=== PATIENT | male | born 1975 | race Caucasian/White ===

== ENCOUNTER 2018-01-24 17:00 | Emergency (ER) | payer MEDICARE, MEDICAID, SELFPAY ==
[2018-01-24 17:05] VITALS: BP 142/83; PULSE 96; RESP 16; TEMP 36.7; O2SAT 97
--- NOTE | 2018-01-24 18:02 | DI.RAD_ITS ---
SYMPTOM/DIAGNOSIS: ROTATIONAL INJURY, PAIN LEFT ANKLE: Three views. No priors. On the frontal view of the left ankle, there is a tiny calcific linear density lateral to the lateral malleolus. This may represent a tiny avulsed fracture. No other fracture or dislocation is seen. There is soft tissue swelling about the ankle laterally. IMPRESSION: 3 mm. linear density adjacent to the tip of the lateral malleolus which may represent a tiny avulsed fracture fragment. Soft tissue swelling about the ankle laterally. LEFT FOOT: Three views. No acute fracture or dislocation is identified. There does appear to be some soft tissue swelling about the foot and ankle, particularly laterally. IMPRESSION: No acute fracture or dislocation of the left foot.
--- NOTE | 2018-01-24 18:04 | W.ED.GENAD ---
Discharge Plan Disposition Patient Disposition: HOME Condition: Good Discharge Details Chief Complaint: Orthopedic Clinical Impression: Inversion sprain of left ankle Primary Care Provider: Derik Barksdale ED Provider: Leora Angel [place] Meds and New Rx's Prescriptions: Continue atorvastatin [Lipitor] 40 MG tablet 40 mg PO HS RF: 0 bupropion HCl 150 MG tablet extended release 12 hr 150 mg PO HS RF: 0 quetiapine [Seroquel] 200 MG tablet 400 mg PO HS RF: 0 metformin 1,000 MG tablet 1,000 mg PO BID RF: 0 lisinopril 10 MG tablet 10 mg PO HS RF: 0 testosterone cypionate 2,000 MG/10 ML oil 200 mg IM .[id number] RF: 0 lamotrigine [Lamictal] 100 MG tablet 100 g PO BID RF: 0 levothyroxine [Synthroid] 112 MCG tablet 125 mcg PO DAILY RF: 0 alprazolam 2 MG tablet extended release 24 hr 0.5 mg PO BID RF: 0 insulin glargine [Lantus Solostar U-100 Insulin] 100 UNIT/ML insulin pen 50 unit SQ HS RF: 0 exenatide microspheres [Bydureon] 2 MG suspension,extended rel recon 2 mg SQ .WEEKLY RF: 0 meclizine [Antivert] 25 MG tablet 25 mg PO Q8H PRN PRN (Reason: Dizziness) Qty: 14 RF: 0 aspirin [Aspir-81] 81 MG tablet,delayed release (DR/EC) 81 mg PO DAILY RF: 0 magnesium oxide 400 MG tablet 400 mg PO DAILY RF: 0 cholecalciferol (vitamin D3) 1,000 UNITS tablet 1,000 units PO DAILY RF: 0 Ibuprofen 800 MG Tablet 800 mg PO DAILY RF: 0 trazodone 50 mg Tablet 50 mg PO HS RF: 0 buspirone 15 mg Tablet 15 mg PO BID RF: 0 Discharge Instructions Instructions: Ankle Sprain (ED) Additional Instructions: Encourage rest, ice, elevation. Tylenol and/or ibuprofen as needed for discomfort. Continue ankle brace while pain continues. Please follow-up with primary care if pain persists over the next 2 weeks. If you develops new or worsening symptoms please seek care urgently with him. Please avoid activities that cause increased Referrals: Derik Barksdale [Primary Care Provider] - Discharge Data Discharge Date/Time-TO BE ENTERED AT DEPARTURE: 01/24/18 19:15 Medical Decision Making MDM Narrative Medical decision making narrative: Patient presents, brought in via EMS with chief complaint of left ankle pain after stepping in a hole in the ground and suffering a rotational injury, believes this was an internal injury but is unclear. Pain fairly globally about the foot and ankle. Worse over the lateral malleolus. Soft tissue swelling noted. States that initially he was able to ambulate but that since the swelling has increased he has had difficulty with ambulation. Contacted EMS to be brought in for evaluation. On exam, patient is noted to have lateral soft tissue swelling. No palpable deformity. Range of motion is limited, particularly plantar flexion secondary to pain. He has brisk capillary refill. Sensation is intact. Pain is fairly diffuse. Will obtain imaging to evaluate for any possible bony abnormality. No pain with palpation over the proximal fibular head or neck. We will give the patient Tylenol and ibuprofen help discomfort X-rays read by radiologist. Advise and soft tissues are unremarkable in the ankle, no acute fracture or dislocation noted. Advise no acute findings. I also reviewed the imaging of the foot. Advise moderate soft tissue swelling involving the foot and ankle but no radiopaque foreign body. No acute fracture dislocation Discussed findings with the patient. Patient was diagnosed with ankle spray he will be fitted with a lace up ankle brace. Encouraged rest, ice, elevation. Tylenol and/or ibuprofen as needed for discomfort. We discussed new/worsening symptoms once he care urgently once again. Advised follow-up with primary care in the next 2 weeks for reevaluation. All of his questions and concerns were addressed and he is in agreement with this plan [facility] - General Adult General Mode of arrival: EMS. Date/Time Provider Initiated Documentation: 01/24/18 17:57. Limitations to Documentation: no limitations. Information obtained by: patient and family (accompanied by parents). History of Present Illness 42 year old M presents to the emergency department with the chief complaint of Left foot and ankle pain, described as moderate, with intensity rated at 8. Quality is described as aching, and is localized to the lower extremity. Patient proximal. Patient started experiencing this hour(s) and it has been constant. No relieving factors improve symptom(s), Movement worsens symptoms . Patient notes no other symptoms.. Patient did receive the following treatments prior to arrival, none Related Data Home Medications Medication Instructions Recorded Confirmed alprazolam 0.5 mg PO BID 02/23/17 01/24/18 atorvastatin [Lipitor] 40 mg PO HS 02/23/17 01/24/18 bupropion HCl 150 mg PO HS 02/23/17 01/24/18 exenatide microspheres [Bydureon] 2 mg SQ .WEEKLY 02/23/17 01/24/18 insulin glargine [Lantus Solostar 50 unit SQ HS 02/23/17 01/24/18 U-100 Insulin] lamotrigine [Lamictal] 100 g PO BID 02/23/17 01/24/18 levothyroxine [Synthroid] 125 mcg PO DAILY 02/23/17 01/24/18 lisinopril 10 mg PO HS 02/23/17 01/24/18 metformin 1,000 mg PO BID 02/23/17 01/24/18 quetiapine [Seroquel] 400 mg PO HS 02/23/17 01/24/18 testosterone cypionate 200 mg IM .[id number] 02/23/17 01/24/18 Ibuprofen 800 mg PO DAILY 06/16/17 01/24/18 aspirin [Aspir-81] 81 mg PO DAILY 06/16/17 01/24/18 cholecalciferol (vitamin D3) 1,000 units PO DAILY 06/16/17 01/24/18 magnesium oxide 400 mg PO DAILY 06/16/17 01/24/18 buspirone 15 mg PO BID 01/24/18 01/24/18 trazodone 50 mg PO HS 01/24/18 01/24/18 Previous Rx's Medication Instructions Recorded meclizine [Antivert] 25 mg PO Q8H PRN PRN #14 tab 02/23/17 Allergies Allergy/AdvReac Type Severity Reaction Status Date / Time No Known Allergies Allergy Unverified 01/24/18 17:23 General Stated Complaint: Orthopedic KEITH: 4 Review of Systems Constitutional Denies chills and Denies fever(s) Respiratory Comments: None reported Musculoskeletal Reports as per HPI, Reports abnormal gait (reports he was able to ambulate initially but is unable to bear weight at this time), Reports joint swelling, Reports limited range of motion, Denies numbness and Reports radiating pain into limb (states no pain proximally initially, however, now states that pain is radiating into mid calf laterally) Integumentary/Breasts Reports skin swelling (left ankle, no discoloration) Neurologic Reports abnormal gait (reports he was able to ambulate initially but is unable to bear weight at this time) and Denies numbness [facility] Social History Smoking/Tobacco Use Status: Never Exam Const General: cooperative, healthy appearing, comfortable, no acute distress, well developed and well groomed Nutritional Appearance: overweight Orientation: alert and awake Resp Effort & Inspection: no respiratory distress Skin General skin exam: no rashes or lesions noted Lesions: no lesions Rashes: no rashes Wounds: no wounds Neuro General: alert and awake Cognition: normal cognition Sensory Exam: no sensory deficits noted Extrem General: abnormal to inspection (Exam of LLE significant for swelling and pain over the lateral malleolus. No palpable deformity. Pain over Achilles, no palpabe deformity, negative Paredes test. Pain in foot globally. Sensatio intact, brisk capillary refill), abnormal ROM (limited ROM of ankle), normal capillary refill, no joint enlargement noted, no clubbing, cyanosis or edema, no pedal edema, no calf tenderness and abnormal gait Left lower extremity: abnormal to inspection (as above) Psych Appearance: grossly normal and well kempt Mental Status: mental status grossly normal Speech and Movement: speech and movement normal Mood: congruent mood Affect: normal affect Attitude: cooperative Course Vital Signs Temperature 36.7 C 01/24/18 17:05 Pulse 96 H 01/24/18 17:05 Respiratory Rate 16 01/24/18 17:05 Blood Pressure 142/83 H 01/24/18 17:05 Pulse Oximetry 97 01/24/18 17:05 Temperature 36.7 C 01/24/18 17:05 Pulse 96 H 01/24/18 17:05 Respiratory Rate 16 01/24/18 17:05 Blood Pressure 142/83 H 01/24/18 17:05 Pulse Oximetry 97 01/24/18 17:05
--- NOTE | 2018-01-24 18:07 | ED.GENADUL_ITS ---
Discharge Plan Disposition Patient Disposition: HOME Condition: Good Discharge Details Chief Complaint: Orthopedic Clinical Impression: Inversion sprain of left ankle Primary Care Provider: Derik Barksdale ED Provider: Leora Angel [place] Meds and New Rx's Prescriptions: Continue atorvastatin [Lipitor] 40 MG tablet 40 mg PO HS RF: 0 bupropion HCl 150 MG tablet extended release 12 hr 150 mg PO HS RF: 0 quetiapine [Seroquel] 200 MG tablet 400 mg PO HS RF: 0 metformin 1,000 MG tablet 1,000 mg PO BID RF: 0 lisinopril 10 MG tablet 10 mg PO HS RF: 0 testosterone cypionate 2,000 MG/10 ML oil 200 mg IM .[id number] RF: 0 lamotrigine [Lamictal] 100 MG tablet 100 g PO BID RF: 0 levothyroxine [Synthroid] 112 MCG tablet 125 mcg PO DAILY RF: 0 alprazolam 2 MG tablet extended release 24 hr 0.5 mg PO BID RF: 0 insulin glargine [Lantus Solostar U-100 Insulin] 100 UNIT/ML insulin pen 50 unit SQ HS RF: 0 exenatide microspheres [Bydureon] 2 MG suspension,extended rel recon 2 mg SQ .WEEKLY RF: 0 meclizine [Antivert] 25 MG tablet 25 mg PO Q8H PRN PRN (Reason: Dizziness) Qty: 14 RF: 0 aspirin [Aspir-81] 81 MG tablet,delayed release (DR/EC) 81 mg PO DAILY RF: 0 magnesium oxide 400 MG tablet 400 mg PO DAILY RF: 0 cholecalciferol (vitamin D3) 1,000 UNITS tablet 1,000 units PO DAILY RF: 0 Ibuprofen 800 MG Tablet 800 mg PO DAILY RF: 0 trazodone 50 mg Tablet 50 mg PO HS RF: 0 buspirone 15 mg Tablet 15 mg PO BID RF: 0 Discharge Instructions Instructions: Ankle Sprain (ED) Additional Instructions: Encourage rest, ice, elevation. Tylenol and/or ibuprofen as needed for discomfort. Continue ankle brace while pain continues. Please follow-up with primary care if pain persists over the next 2 weeks. If you develops new or worsening symptoms please seek care urgently with him. Please avoid activities that cause increased Referrals: Derik Barksdale [Primary Care Provider] - Discharge Data Discharge Date/Time-TO BE ENTERED AT DEPARTURE: 01/24/18 19:15 Medical Decision Making MDM Narrative Medical decision making narrative: Patient presents, brought in via EMS with chief complaint of left ankle pain after stepping in a hole in the ground and suffering a rotational injury, believes this was an internal injury but is unclear. Pain fairly globally about the foot and ankle. Worse over the lateral malleolus. Soft tissue swelling noted. States that initially he was able to ambulate but that since the swelling has increased he has had difficulty with ambulation. Contacted EMS to be brought in for evaluation. On exam, patient is noted to have lateral soft tissue swelling. No palpable deformity. Range of motion is limited, particularly plantar flexion secondary to pain. He has brisk capillary refill. Sensation is intact. Pain is fairly diffuse. Will obtain imaging to evaluate for any possible bony abnormality. No pain with palpation over the proximal fibular head or neck. We will give the patient Tylenol and ibuprofen help discomfort X-rays read by radiologist. Advise and soft tissues are unremarkable in the ankle, no acute fracture or dislocation noted. Advise no acute findings. I also reviewed the imaging of the foot. Advise moderate soft tissue swelling involving the foot and ankle but no radiopaque foreign body. No acute fracture dislocation Discussed findings with the patient. Patient was diagnosed with ankle spray he will be fitted with a lace up ankle brace. Encouraged rest, ice, elevation. Tylenol and/or ibuprofen as needed for discomfort. We discussed new/worsening symptoms once he care urgently once again. Advised follow-up with primary care in the next 2 weeks for reevaluation. All of his questions and concerns were addressed and he is in agreement with this plan [facility] - General Adult General Mode of arrival: EMS . Date/Time Provider Initiated Documentation: 01/24/18 17:57 . Limitations to Documentation: no limitations . Information obtained by: patient and family (accompanied by parents) . History of Present Illness 42 year old M presents to the emergency department with the chief complaint of Left foot and ankle pain, described as moderate, with intensity rated at 8. Quality is described as aching, and is localized to the lower extremity. Patient proximal. Patient started experiencing this hour(s) and it has been constant. No relieving factors improve symptom(s), Movement worsens symptoms . Patient notes no other symptoms.. Patient did receive the following treatments prior to arrival, none Related Data Home Medications Medication Instructions Recorded Confirmed alprazolam 0.5 mg PO BID 02/23/17 01/24/18 atorvastatin [Lipitor] 40 mg PO HS 02/23/17 01/24/18 bupropion HCl 150 mg PO HS 02/23/17 01/24/18 exenatide microspheres [Bydureon] 2 mg SQ .WEEKLY 02/23/17 01/24/18 insulin glargine [Lantus Solostar 50 unit SQ HS 02/23/17 01/24/18 U-100 Insulin] lamotrigine [Lamictal] 100 g PO BID 02/23/17 01/24/18 levothyroxine [Synthroid] 125 mcg PO DAILY 02/23/17 01/24/18 lisinopril 10 mg PO HS 02/23/17 01/24/18 metformin 1,000 mg PO BID 02/23/17 01/24/18 quetiapine [Seroquel] 400 mg PO HS 02/23/17 01/24/18 testosterone cypionate 200 mg IM .[id number] 02/23/17 01/24/18 Ibuprofen 800 mg PO DAILY 06/16/17 01/24/18 aspirin [Aspir-81] 81 mg PO DAILY 06/16/17 01/24/18 cholecalciferol (vitamin D3) 1,000 units PO DAILY 06/16/17 01/24/18 magnesium oxide 400 mg PO DAILY 06/16/17 01/24/18 buspirone 15 mg PO BID 01/24/18 01/24/18 trazodone 50 mg PO HS 01/24/18 01/24/18 Previous Rx's Medication Instructions Recorded meclizine [Antivert] 25 mg PO Q8H PRN PRN #14 tab 02/23/17 Allergies Allergy/AdvReac Type Severity Reaction Status Date / Time No Known Allergies Allergy Unverified 01/24/18 17:23 General Stated Complaint: Orthopedic KEITH: 4 Review of Systems Constitutional Denies chills and Denies fever(s) Respiratory Comments: None reported Musculoskeletal Reports as per HPI, Reports abnormal gait (reports he was able to ambulate initially but is unable to bear weight at this time), Reports joint swelling, Reports limited range of motion, Denies numbness and Reports radiating pain into limb (states no pain proximally initially, however, now states that pain is radiating into mid calf laterally) Integumentary/Breasts Reports skin swelling (left ankle, no discoloration) Neurologic Reports abnormal gait (reports he was able to ambulate initially but is unable to bear weight at this time) and Denies numbness [facility] Social History Smoking/Tobacco Use Status: Never Exam Const General: cooperative, healthy appearing, comfortable, no acute distress, well developed and well groomed Nutritional Appearance: overweight Orientation: alert and awake Resp Effort & Inspection: no respiratory distress Skin General skin exam: no rashes or lesions noted Lesions: no lesions Rashes: no rashes Wounds: no wounds Neuro General: alert and awake Cognition: normal cognition Sensory Exam: no sensory deficits noted Extrem General: abnormal to inspection (Exam of LLE significant for swelling and pain over the lateral malleolus. No palpable deformity. Pain over Achilles, no palpabe deformity, negative Paredes test. Pain in foot globally. Sensatio intact, brisk capillary refill), abnormal ROM (limited ROM of ankle), normal capillary refill, no joint enlargement noted, no clubbing, cyanosis or edema, no pedal edema, no calf tenderness and abnormal gait Left lower extremity: abnormal to inspection (as above) Psych Appearance: grossly normal and well kempt Mental Status: mental status grossly normal Speech and Movement: speech and movement normal Mood: congruent mood Affect: normal affect Attitude: cooperative Course Vital Signs Temperature 36.7 C 01/24/18 17:05 Pulse 96 H 01/24/18 17:05 Respiratory Rate 16 01/24/18 17:05 Blood Pressure 142/83 H 01/24/18 17:05 Pulse Oximetry 97 01/24/18 17:05 Temperature 36.7 C 01/24/18 17:05 Pulse 96 H 01/24/18 17:05 Respiratory Rate 16 01/24/18 17:05 Blood Pressure 142/83 H 01/24/18 17:05 Pulse Oximetry 97 01/24/18 17:05
[2018-01-24] MEDS: Acetaminophen 500 MG TAB 1000 MG PO (18:30)
[2018-01-24] MEDS: Ibuprofen 600 MG TAB PO (18:30)
--- NOTE | 2018-01-24 18:41 | DI.VRAD_ITS ---
EXAM: XR Left Ankle Complete, 3 or More Views CLINICAL HISTORY: 42 years old, male; Pain; Ankle and foot; Left TECHNIQUE: Frontal, lateral and oblique views of the left ankle. COMPARISON: No relevant prior studies available. FINDINGS: Bones/joints: Unremarkable. No acute fracture. No dislocation. Soft tissues: Unremarkable. IMPRESSION: No acute findings. Dictated and Authenticated by: Vikram Galvin MD. Ordering:MARGARETTE BALTAZAR MD
--- NOTE | 2018-01-24 18:51 | DI.VRAD_ITS ---
EXAM: XR Left Foot Complete, 3 or More Views CLINICAL HISTORY: 42 years old, male; Pain and injury or trauma; Fall; Initial encounter; Swelling (edema); Foot; Left; Ankle; Additional info: Rotational injury TECHNIQUE: Frontal, lateral and oblique views of the left foot. COMPARISON: No relevant prior studies available. FINDINGS: Bones/joints: Unremarkable. No acute fracture. No dislocation. Soft tissues: Moderate soft tissue swelling involving the foot and ankle. No radiopaque foreign body. IMPRESSION: No acute fracture or dislocation. Dictated and Authenticated by: Vikram Galvin MD. Ordering:MARGARETTE BALTAZAR MD
[2018-01-24 19:21] VITALS: BP 148/80; PULSE 64; RESP 18; TEMP 36.7; O2SAT 96
== END 2018-01-24 19:15 | disposition home or self-care (01) ==
PROVIDERS: Emergency Provider Physician Assistant; PCP Family Medicine
DX: S93.402A Sprain of unspecified ligament of left ankle, initial encounter (principal); X50.1XXA Overexertion from prolonged static or awkward postures, initial encounter
CPT/HCPCS: 29515; 99284; 73610; 73630; 99282; L1902

== ENCOUNTER 2018-03-08 09:09 | Outpatient (REF) | payer MEDICARE, MEDICAID, SELFPAY ==
[2018-03-08 12:49] LABS: HCT 39.5 % (40.0-50.0); HGB 13.2 g/dL (13.5-17.5); Mean Corp. HGB Concentration 33.4 g/dL (32.0-36.0); Mean Corpuscular Hemoglobin 25.5 pg (27.0-33.0); Mean Corpuscular Volume 76.4 fL (80-95); Mean Platelet Volume 9.9 fL (8.0-11.0); Platelet Count 267 x1000/uL (130-400); RBC 5.17 m/cumm (4.50-6.00); RBC Distribution Width 15.4 % (11.8-14.1); White Blood Cell Count 7.34 k/cumm (4.4-10.8)
[2018-03-08 13:34] LABS: Microalb ug/mg Crea 7.9 ug/mg Cr
[2018-03-08 14:41] LABS: Anion Gap 12.2 mmol/L (3-11); BUN 14 mg/dL (7-18); CO2 24.8 mmol/L (21.0-32.0); CREATININE 1.36 mg/dL (0.70-1.30); Calcium 9.1 mg/dL (8.5-10.1); Chloride 100 mmol/L (98-107); Estimated GFR 57.47 (mL/min/1.73m2); Glucose 119 mg/dL (70-100); Magnesium 1.7 mg/dL (1.8-2.4); Potassium 4.5 mmol/L (3.5-5.1); Sodium 137 mmol/L (136-145); TSH (W/Ref FT4) 1.69 uIU/mL (0.358-3.74)
[2018-03-11 11:40] LABS: Testosterone, Free 7.07 ng/dL (4.46-17.1); Testosterone, Total 202 ng/dL (240-950)
== END 2018-03-08 09:29 ==
LOC: NCHCN 09:09
PROVIDERS: PCP Family Medicine; Visit Provider Family Medicine
DX: E83.42 Hypomagnesemia (principal); E03.9 Hypothyroidism, unspecified; N28.9 Disorder of kidney and ureter, unspecified; R42 Dizziness and giddiness; E29.1 Testicular hypofunction; E11.21 Type 2 diabetes mellitus with diabetic nephropathy
CPT/HCPCS: 80048; 84402; 84403; 85027; 82043; 82570; 83735; 84443

== ENCOUNTER 2018-03-15 00:42 | Outpatient (CLI) | payer MEDICARE, MEDICAID, SELFPAY ==
--- NOTE | 2018-03-15 08:30 | ETT_ITS ---
*[facility]* *[facility]* [address] [place] [address] Stress Electrocardiography Gopi protocol Date of study: 03/15/2018 *PATIENT PRESENTATION* Height: 177.8cm (70in) Blood Pressure: Weight: 119.1kg (262lb) BSA: 2.47m^2 Ordering physician: Derik Barksdale Impressions: - Chest pain with exercise. - No ECG changes during exercise. Summary: 1. Stress ECG conclusions: The stress ECG is negative. Lee treadmill score: 4. This score predicts a moderate risk of cardiac events. 2. Stress: The target heart rate was achieved. The heart rate response to stress is normal. There is a normal resting blood pressure with an appropriate response to stress. Stress-induced chest pain which resolved spontaneously. Exercise capacity is good (10 METS). Recommendations: Exercise stress myocardial perfusion imaging should be performed for further risk stratification. Indication: R07.89, Appropriate Use Criteria: A (Appropriate). History: REASON FOR TESTING: CHEST PAIN, SHORTNESS OF BREATH AND POUNDING IN CHEST WITH GOING UP 1 FLIGHT OF STAIRS. PAST MEDICAL HISTORY: BIPOLAR, DIABETES, HYPOPITUITARYISM. FAMILY HISTORY: FATHER HEART ATTACK AT AGE 60. SMOKING: NEVER EXERCISE: NONE Risk factors: Family history of coronary artery disease. Hypertension. Diabetes mellitus. Dyslipidemia. Cholesterol: 182mg/dl. HDL: 31mg/dl. LDL: 86mg/dl. Triglycerides: 562mg/dl. ALLERGIES: NO KNOWN ALLERGIES MEDICATIONS: ATORVASTATIN 40 MG HS, BUPROPION HCI 150 MG HS, QUETIAPINE 200 MG HS, METFORMIN 1000 MG BID, LISINOPRIL 10 MG HS, TESTOSTERONE CYPIOINATE 2000 MG IM Q2 WEEKS, LAMOTRIGINE 100 MG BID, LEVOTHYROXINE 112 MCG DAILY, ALPRAZOLAM 2 MG, GLARGINE INSULIN 50 UNITS HS, EXENATIDE MICROSPHERES 2 MG SQ WEEKLY, MECLIZINE 25 MG PRN, ASPIRIN 81 MG DAILY, CHOLECALCIFEROL 1000 DAILY, IBUPROFEN 800 DAILY, TRAZODONE 50 HS, BUSPIRONE 15 BID. Protocol: Gopi protocol. Baseline ECG: LAST EKG: NONE AVAILABLE TODAY'S EKG: SINUS RHYTHM Normal ECG. Stress protocol: + +---+ +---+ !Stage !HR !BP (mmHg) !Sat! + +---+ +---+ !Baseline supine !83 !118/74 (89) !---! + +---+ +---+ !Baseline standing !92 !114/80 (91) !97%! + +---+ +---+ !Stage I; 1.7mph, 10degrees; 3 min !121!106/68 (81) !---! + +---+ +---+ !Stage II; 2.5mph, 12degrees; 3 min!145!126/70 (89) !98%! + +---+ +---+ !Recovery; 1 min !152!148/72 (97) !---! + +---+ +---+ !Recovery; 3 min !110!162/84 (110)!---! + +---+ +---+ !Recovery; 6 min !99 !148/80 (103)!---! + +---+ +---+ !Recovery; 9 min !98 !130/82 (98) !---! + +---+ +---+ * Stress results: EXERCISE TESTING ENDED IN 7 MINUTES 45 SECONDS DUE TO DYSPNEA AND INCREASING DIZZINESS, MAX HEART RATE [id number], 88% OF TARGET. BLOOD PRESSURE: TREADMILL MALFUNCTIONED DURING FIRST STAGE HENCE THE LOWER BLOOD PRESSURE DURING THE FIRST STAGE. OTHERWISE BLOOD PRESSURE RESPONSE NORMAL RESPONSE. ECTOPY: NONE MET'S: 9.75 ANGINA: DURING THIRD STAGE PATIENT REPORTED CHEST ACHING RATED 4/10--DENIED ANY RADIATION WITH CHEST PAIN. LIGHTHEADEDNESS REPORTED DURING THE SECOND STAGE AND ENDED DURING RECOVERY AT 6 MINUTES. HEART POUNDING REPORTED DURING BEGINING RECOVERY AND ENDED AT 4 MINUTES 56 SECONDS RECOVERY. ISCHEMIA: NO ISCHEMIC CHANGES NOTED. FUNCTIONAL CAPACITY: MILDLY DIMINISHED. The target heart rate was achieved. The heart rate response to stress is normal. There is a normal resting blood pressure with an appropriate response to stress. The rate-pressure product for the peak heart rate and blood pressure was 93571rd Hg/min. Stress-induced chest pain which resolved spontaneously. Exercise capacity is good (10 METS). Stress ECG: The stress ECG is negative. Lee treadmill score: 4. This score predicts a moderate risk of cardiac events. Study data: Alejo Schaeffer MD supervised and was readily available during the procedure. This study was interpreted by [facility]. Study status: Routine. Consent: The risks, benefits, and alternatives to the procedure were explained to the patient and informed consent was obtained. Procedure: Initial setup. A baseline ECG was recorded. Surface ECG leads and manual cuff blood pressure measurements were monitored. Heart sounds: Normal. Lung sounds: Normal. Treadmill exercise testing was performed using the Gopi protocol. Study completion: The patient tolerated the procedure well and was discharged from the lab. Discharge: The patient left the laboratory in stable condition. Birthdate: Patient birthdate: 1975. Sex: Gender: male. Study date: Study date: 03/15/2018. Study time: 08:30 AM. Signature Documentation: The Stress ECG portion of this study was interpreted by Alejo Schaeffer MD. Electronically signed by Alejo Schaeffer 03/15/2018 12:49
== END 2018-03-15 01:02 ==
PROVIDERS: PCP Family Medicine; Visit Provider Family Medicine
DX: R07.89 Other chest pain (principal); R06.02 Shortness of breath; E11.9 Type 2 diabetes mellitus without complications; Z79.4 Long term (current) use of insulin; F31.81 Bipolar II disorder
CPT/HCPCS: 93016; 93018; 93017

== ENCOUNTER 2018-06-26 12:21 | Outpatient (REF) | payer MEDICARE, MEDICAID, SELFPAY ==
[2018-06-26 13:26] LABS: HCT 40.2 % (40.0-50.0); HGB 13.7 g/dL (13.5-17.5); Mean Corp. HGB Concentration 34.1 g/dL (32.0-36.0); Mean Corpuscular Hemoglobin 27.1 pg (27.0-33.0); Mean Corpuscular Volume 79.6 fL (80-95); Mean Platelet Volume 9.9 fL (8.0-11.0); Platelet Count 242 x1000/uL (130-400); RBC 5.05 m/cumm (4.50-6.00); RBC Distribution Width 14.6 % (11.8-14.1); White Blood Cell Count 6.92 k/cumm (4.4-10.8)
[2018-06-26 13:28] LABS: Iron 35 ug/dL (50-175); Total Iron Binding Capacity 369 ug/dL (250-450); Transferrin Sat 9 % (20-55)
== END 2018-06-26 12:41 ==
LOC: NCHCN 12:21
PROVIDERS: PCP Family Medicine; Visit Provider Family Medicine
DX: D50.0 Iron deficiency anemia secondary to blood loss (chronic) (principal)
CPT/HCPCS: 85027; 83540; 83550

== ENCOUNTER 2018-08-16 15:46 | Emergency (ER) | payer MEDICARE, MEDICAID, SELFPAY ==
[2018-08-16 15:51] VITALS: BP 141/91; PULSE 90; RESP 20; TEMP 36.7; O2SAT 98
--- NOTE | 2018-08-16 16:11 | W.ED.GENAD ---
Discharge Plan Disposition Patient Disposition: HOME Condition: Stable Discharge Details Chief Complaint: Dizzy/Sync Clinical Impression: Vertigo Primary Care Provider: Derik Barksdale ED Provider: Mik Becerra Home Meds and New Rx's Prescriptions: New meclizine 25 mg tablet 25 mg PO TID PRN (Reason: dizziness) Qty: 20 RF: 0 No Action atorvastatin [Lipitor] 40 MG tablet 40 mg PO HS RF: 0 bupropion HCl 150 MG tablet extended release 12 hr 150 mg PO HS RF: 0 quetiapine [Seroquel] 200 MG tablet 400 mg PO HS RF: 0 metformin 1,000 MG tablet 1,000 mg PO BID RF: 0 lisinopril 10 MG tablet 10 mg PO HS RF: 0 testosterone cypionate 2,000 MG/10 ML oil 200 mg IM .[id number] RF: 0 lamotrigine [Lamictal] 100 MG tablet 100 g PO BID RF: 0 levothyroxine [Synthroid] 112 MCG tablet 125 mcg PO DAILY RF: 0 alprazolam 2 MG tablet extended release 24 hr 0.5 mg PO BID RF: 0 Lantus Solostar U-100 Insulin 100 UNIT/ML insulin pen 50 unit SQ HS RF: 0 Bydureon 2 MG suspension,extended rel recon 2 mg SQ .WEEKLY RF: 0 meclizine [Antivert] 25 MG tablet 25 mg PO Q8H PRN PRN (Reason: Dizziness) Qty: 14 RF: 0 aspirin [Aspir-81] 81 MG tablet,delayed release (DR/EC) 81 mg PO DAILY RF: 0 cholecalciferol (vitamin D3) 1,000 UNITS tablet 1,000 units PO DAILY RF: 0 Ibuprofen 800 MG Tablet 800 mg PO DAILY RF: 0 buspirone 15 mg Tablet 15 mg PO BID RF: 0 Discharge Instructions Instructions: Vertigo (ED) Additional Instructions: if not better within a week see your primary care provider return to the emergency department for difficulty breathing, high fevers or chest pressure/pain Medical Decision Making 42 yo male with hx of DM, bipolar, who comes in with feeling dizzy. 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 Denies chest pain, sob, feeling as though he may pass out. He is feeling better now though still has dizziness when turning his head. HE has a reassuring HINTS exam, no focal deficits and NIH of 0 so doubt cva and is ambulating with steady gait, does have some mild horizontal nystagmus in both eyes when looking to the left. I suspect peripheral vertigo, will tx with mecilize. ADvised f/u with pcp and return precautions given. HE has no neck pain or bruits, do not suspect dissection at this time Differential Diagnosis BPPV, labrynthitis HPI General Mode of arrival: ambulatory. Date/Time Provider Initiated Documentation: 08/16/18 15:58. Limitations to Documentation: no limitations. Information obtained by: patient. History of Present Illness 42 year old M presents to the emergency department with the chief complaint of dizziness, described as moderate, and it has been intermittent. No relieving factors improve symptom(s), Other factors that worsen symptoms (head movement) . Patient notes no other symptoms.. Patient did receive the following treatments prior to arrival, none Related Data Home Medications Medication Instructions Recorded Confirmed Bydureon 2 mg SQ .WEEKLY 02/23/17 08/16/18 Lantus Solostar U-100 Insulin 50 unit SQ HS 02/23/17 08/16/18 alprazolam 0.5 mg PO BID 02/23/17 08/16/18 atorvastatin [Lipitor] 40 mg PO HS 02/23/17 08/16/18 bupropion HCl 150 mg PO HS 02/23/17 08/16/18 lamotrigine [Lamictal] 100 g PO BID 02/23/17 08/16/18 levothyroxine [Synthroid] 125 mcg PO DAILY 02/23/17 08/16/18 lisinopril 10 mg PO HS 02/23/17 08/16/18 meclizine [Antivert] 25 mg PO Q8H PRN PRN #14 tab 02/23/17 01/24/18 metformin 1,000 mg PO BID 02/23/17 08/16/18 quetiapine [Seroquel] 400 mg PO HS 02/23/17 08/16/18 testosterone cypionate 200 mg IM .[id number] 02/23/17 08/16/18 Ibuprofen 800 mg PO DAILY 06/16/17 08/16/18 aspirin [Aspir-81] 81 mg PO DAILY 01/25/18 03/27/19 cholecalciferol (vitamin D3) 1,000 units PO DAILY 06/16/17 08/16/18 buspirone 15 mg PO BID 01/24/18 08/16/18 meclizine 25 mg PO TID PRN #20 tab 08/16/18 Previous Rx's Medication Instructions Recorded meclizine [Antivert] 25 mg PO Q8H PRN PRN #14 tab 02/23/17 meclizine 25 mg PO TID PRN #20 tab 08/16/18 Allergies Allergy/AdvReac Type Severity Reaction Status Date / Time No Known Allergies Allergy Unverified 08/16/18 15:55 General Stated Complaint: Dizzy/Sync KEITH: 3 Review of Systems Review of Systems All systems reviewed & are unremarkable except as noted in HPI and below Constitutional Denies chills, Denies fever(s) and Denies weakness Cardiovascular Denies chest pain and Denies dyspnea Respiratory Denies cough and Denies dyspnea Gastrointestinal Denies abdominal pain, Denies nausea and Denies vomiting Musculoskeletal Denies joint swelling Neurologic Denies weakness [facility] Medical History Bipolar 1 disorder (Acute) Hypopituitarism (Acute) Anemia (Chronic) Diabetes (Chronic) Surgical History S/P cholecystectomy (Acute) Social History Smoking/Tobacco Use Status: Never Alcohol Intake: never Drug use: Never Substance use type: does not use Do you feel safe at home: Yes Do you feel safe in your relationship?: Yes Exam Const General: no acute distress Orientation: alert [facility] Head: normal to inspection Ears: external ears normal General nose exam: external nose normal Mouth: moist mucous membranes Eyes General: appearance normal, both eyes and all related structures Neck Neck: normal visual inspection Resp Effort & Inspection: normal respiratory effort and able to speak in complete sentences Cardio Rate: regular rate Skin General skin exam: no rashes or lesions noted Neuro General: alert and oriented x3 Extrem General: normal to inspection Psych Mental Status: mental status grossly normal Course Vital Signs Temperature 36.7 C 08/16/18 15:51 Pulse 90 08/16/18 15:51 Respiratory Rate 20 08/16/18 15:51 Blood Pressure 141/91 H 08/16/18 15:51 Pulse Oximetry 98 08/16/18 15:51 Temperature 36.7 C 08/16/18 15:51 Temperature Source Temporal Artery Scan 08/16/18 15:51 Pulse 90 08/16/18 15:51 Respiratory Rate 20 08/16/18 15:51 Respiratory Effort Non-Labored 08/16/18 15:51 Blood Pressure 141/91 H 08/16/18 15:51 Blood Pressure Position Sitting 08/16/18 15:51 Pulse Oximetry 98 08/16/18 15:51 Oxygen Delivery Method Room Air 08/16/18 15:51 Oxygen Flow Rate 0 08/16/18 15:51 Pain Level 0 08/16/18 15:51
[2018-08-16] MEDS: Meclizine 25 MG TAB PO (16:17)
--- NOTE | 2018-08-16 16:17 | ED.GENADUL_ITS ---
Discharge Plan Disposition Patient Disposition: HOME Condition: Stable Discharge Details Chief Complaint: Dizzy/Sync Clinical Impression: Vertigo Primary Care Provider: Derik Barksdale ED Provider: Mik Becerra Home Meds and New Rx's Prescriptions: New meclizine 25 mg tablet 25 mg PO TID PRN (Reason: dizziness) Qty: 20 RF: 0 No Action atorvastatin [Lipitor] 40 MG tablet 40 mg PO HS RF: 0 bupropion HCl 150 MG tablet extended release 12 hr 150 mg PO HS RF: 0 quetiapine [Seroquel] 200 MG tablet 400 mg PO HS RF: 0 metformin 1,000 MG tablet 1,000 mg PO BID RF: 0 lisinopril 10 MG tablet 10 mg PO HS RF: 0 testosterone cypionate 2,000 MG/10 ML oil 200 mg IM .[id number] RF: 0 lamotrigine [Lamictal] 100 MG tablet 100 g PO BID RF: 0 levothyroxine [Synthroid] 112 MCG tablet 125 mcg PO DAILY RF: 0 alprazolam 2 MG tablet extended release 24 hr 0.5 mg PO BID RF: 0 Lantus Solostar U-100 Insulin 100 UNIT/ML insulin pen 50 unit SQ HS RF: 0 Bydureon 2 MG suspension,extended rel recon 2 mg SQ .WEEKLY RF: 0 meclizine [Antivert] 25 MG tablet 25 mg PO Q8H PRN PRN (Reason: Dizziness) Qty: 14 RF: 0 aspirin [Aspir-81] 81 MG tablet,delayed release (DR/EC) 81 mg PO DAILY RF: 0 cholecalciferol (vitamin D3) 1,000 UNITS tablet 1,000 units PO DAILY RF: 0 Ibuprofen 800 MG Tablet 800 mg PO DAILY RF: 0 buspirone 15 mg Tablet 15 mg PO BID RF: 0 Discharge Instructions Instructions: Vertigo (ED) Additional Instructions: if not better within a week see your primary care provider return to the emergency department for difficulty breathing, high fevers or chest pressure/pain Medical Decision Making 42 yo male with hx of DM, bipolar, who comes in with feeling dizzy. 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 Denies chest pain, sob, feeling as though he may pass out. He is feeling better now though still has dizziness when turning his head. HE has a reassuring HINTS exam, no focal deficits and NIH of 0 so doubt cva and is ambulating with steady gait, does have some mild horizontal nystagmus in both eyes when looking to the left. I suspect peripheral vertigo, will tx with mecilize. ADvised f/u with pcp and return precautions given. HE has no neck pain or bruits, do not suspect dissection at this time Differential Diagnosis BPPV, labrynthitis HPI General Mode of arrival: ambulatory . Date/Time Provider Initiated Documentation: 08/16/18 15:58 . Limitations to Documentation: no limitations . Information obtained by: patient . History of Present Illness 42 year old M presents to the emergency department with the chief complaint of dizziness, described as moderate, and it has been intermittent. No relieving factors improve symptom(s), Other factors that worsen symptoms (head movement) . Patient notes no other symptoms.. Patient did receive the following treatments prior to arrival, none Related Data Home Medications Medication Instructions Recorded Confirmed Bydureon 2 mg SQ .WEEKLY 02/23/17 08/16/18 Lantus Solostar U-100 Insulin 50 unit SQ HS 02/23/17 08/16/18 alprazolam 0.5 mg PO BID 02/23/17 08/16/18 atorvastatin [Lipitor] 40 mg PO HS 02/23/17 08/16/18 bupropion HCl 150 mg PO HS 02/23/17 08/16/18 lamotrigine [Lamictal] 100 g PO BID 02/23/17 08/16/18 levothyroxine [Synthroid] 125 mcg PO DAILY 02/23/17 08/16/18 lisinopril 10 mg PO HS 02/23/17 08/16/18 meclizine [Antivert] 25 mg PO Q8H PRN PRN #14 tab 02/23/17 01/24/18 metformin 1,000 mg PO BID 02/23/17 08/16/18 quetiapine [Seroquel] 400 mg PO HS 02/23/17 08/16/18 testosterone cypionate 200 mg IM .[id number] 02/23/17 08/16/18 Ibuprofen 800 mg PO DAILY 06/16/17 08/16/18 aspirin [Aspir-81] 81 mg PO DAILY 01/25/18 03/27/19 cholecalciferol (vitamin D3) 1,000 units PO DAILY 06/16/17 08/16/18 buspirone 15 mg PO BID 01/24/18 08/16/18 meclizine 25 mg PO TID PRN #20 tab 08/16/18 Previous Rx's Medication Instructions Recorded meclizine [Antivert] 25 mg PO Q8H PRN PRN #14 tab 02/23/17 meclizine 25 mg PO TID PRN #20 tab 08/16/18 Allergies Allergy/AdvReac Type Severity Reaction Status Date / Time No Known Allergies Allergy Unverified 08/16/18 15:55 General Stated Complaint: Dizzy/Sync KEITH: 3 Review of Systems Review of Systems All systems reviewed & are unremarkable except as noted in HPI and below Constitutional Denies chills, Denies fever(s) and Denies weakness Cardiovascular Denies chest pain and Denies dyspnea Respiratory Denies cough and Denies dyspnea Gastrointestinal Denies abdominal pain, Denies nausea and Denies vomiting Musculoskeletal Denies joint swelling Neurologic Denies weakness [facility] Medical History Bipolar 1 disorder (Acute) Hypopituitarism (Acute) Anemia (Chronic) Diabetes (Chronic) Surgical History S/P cholecystectomy (Acute) Social History Smoking/Tobacco Use Status: Never Alcohol Intake: never Drug use: Never Substance use type: does not use Do you feel safe at home: Yes Do you feel safe in your relationship?: Yes Exam Const General: no acute distress Orientation: alert [facility] Head: normal to inspection Ears: external ears normal General nose exam: external nose normal Mouth: moist mucous membranes Eyes General: appearance normal, both eyes and all related structures Neck Neck: normal visual inspection Resp Effort & Inspection: normal respiratory effort and able to speak in complete sentences Cardio Rate: regular rate Skin General skin exam: no rashes or lesions noted Neuro General: alert and oriented x3 Extrem General: normal to inspection Psych Mental Status: mental status grossly normal Course Vital Signs Temperature 36.7 C 08/16/18 15:51 Pulse 90 08/16/18 15:51 Respiratory Rate 20 08/16/18 15:51 Blood Pressure 141/91 H 08/16/18 15:51 Pulse Oximetry 98 08/16/18 15:51 Temperature 36.7 C 08/16/18 15:51 Temperature Source Temporal Artery Scan 08/16/18 15:51 Pulse 90 08/16/18 15:51 Respiratory Rate 20 08/16/18 15:51 Respiratory Effort Non-Labored 08/16/18 15:51 Blood Pressure 141/91 H 08/16/18 15:51 Blood Pressure Position Sitting 08/16/18 15:51 Pulse Oximetry 98 08/16/18 15:51 Oxygen Delivery Method Room Air 08/16/18 15:51 Oxygen Flow Rate 0 08/16/18 15:51 Pain Level 0 08/16/18 15:51
== END 2018-08-16 16:27 | disposition home or self-care (01) ==
PROVIDERS: Emergency Provider Emergency Medicine; PCP Family Medicine
DX: R42 Dizziness and giddiness (principal)
CPT/HCPCS: 99283

== ENCOUNTER → 2018-10-20 14:04 | Outpatient (BNVA) | payer MEDICARE, MEDICAID, SELFPAY | PROVIDERS: PCP Family Medicine; Referring Provider Family Medicine; Visit Provider Physical Therapy Assistant | DX: R69 Illness, unspecified (principal) ==

== ENCOUNTER 2018-10-20 14:49 | Outpatient (CLI) | payer MEDICARE, MEDICAID, SELFPAY ==
[2018-10-20 15:22] LABS: Abs Immature Grans 0.03 k/cumm (0.0-0.09); Absolute Basophil Count 0.03 k/cumm (0.0-0.2); Absolute Eosinophil Count 0.12 k/cumm (0.0-0.7); Absolute Lymphocyte Count 2.29 k/cumm (1.2-3.4); Absolute Neutrophil Count 4.82 k/cumm (1.2-6.7); Basophils % 0.4; Eosinophils % 1.5; HCT 42.7 % (40.0-50.0); Immature Grans % 0.4; Mean Corp. HGB Concentration 35.1 g/dL (32.0-36.0); Mean Corpuscular Hemoglobin 27.9 pg (27.0-33.0); Mean Corpuscular Volume 79.5 fL (80-95); Mean Platelet Volume 9.1 fL (8.0-11.0); Monocytes % 7.6; Neutrophils % 61.1; Platelet Count 225 x1000/uL (130-400); RBC 5.37 m/cumm (4.50-6.00); RBC Distribution Width 15.1 % (11.8-14.1); Reticulocyte 2.4 % (0.5-2.4); White Blood Cell Count 7.89 k/cumm (4.4-10.8)
[2018-10-20 16:33] LABS: Iron 88 ug/dL (50-175); Total Iron Binding Capacity 333 ug/dL (250-450); Transferrin Sat 26 % (20-55)
[2018-10-20 16:47] LABS: Anion Gap 12.7 mmol/L (3-11); BUN 14 mg/dL (7-18); CO2 25.3 mmol/L (21.0-32.0); CREATININE 1.38 mg/dL (0.70-1.30); Calcium 9.3 mg/dL (8.5-10.1); Chloride 99 mmol/L (98-107); Estimated GFR 56.24 (mL/min/1.73m2); Ferritin 61 ng/mL (8-388); Glucose 292 mg/dL (70-100); Potassium 4.3 mmol/L (3.5-5.1); Sodium 137 mmol/L (136-145)
== END 2018-10-20 15:09 ==
PROVIDERS: PCP Family Medicine; Visit Provider Surgery
DX: D64.9 Anemia, unspecified (principal); R42 Dizziness and giddiness; E11.9 Type 2 diabetes mellitus without complications; I10 Essential (primary) hypertension
CPT/HCPCS: 36415; 80048; 99212; 99213; 82728; 83540; 83550; 85025; 85045

== ENCOUNTER 2019-01-04 10:41 | Emergency (ER) | payer MEDICARE, MEDICAID, SELFPAY ==
[2019-01-04] VITALS (40 sets, daily range): BP systolic 90–132; BP diastolic 67–92; PULSE 88–101; RESP 11–23; TEMP 36.9; O2SAT 92–96
--- NOTE | 2019-01-04 11:23 | ED.GENADUL_ITS ---
Discharge Plan Disposition Patient Disposition: HOME Condition: Improving Discharge Details Chief Complaint: Headache Clinical Impression: Vertiginous migraine, Dehydration Primary Care Provider: Derik Barksdale ED Provider: Leora Angel Home Meds and New Rx's Prescriptions: Continued atorvastatin [Lipitor] 40 MG tablet 40 mg PO HS RF: 0 bupropion HCl 150 MG tablet extended release 12 hr 150 mg PO HS RF: 0 quetiapine [Seroquel] 200 MG tablet 400 mg PO HS RF: 0 metformin 1,000 MG tablet 1,000 mg PO BID RF: 0 lisinopril 10 MG tablet 10 mg PO HS RF: 0 testosterone cypionate 2,000 MG/10 ML oil 200 mg IM .[id number] RF: 0 lamotrigine [Lamictal] 100 MG tablet 100 mg PO BID RF: 0 levothyroxine [Synthroid] 112 MCG tablet 125 mcg PO DAILY RF: 0 Lantus Solostar U-100 Insulin 100 UNIT/ML insulin pen 50 unit SQ HS RF: 0 Bydureon 2 MG suspension,extended rel recon 2 mg SQ .WEEKLY RF: 0 cholecalciferol (vitamin D3) 1,000 UNITS tablet 1,000 units PO DAILY RF: 0 buspirone 15 mg Tablet 15 mg PO BID RF: 0 Discharge Instructions Instructions: Dehydration (ED), Vertigo (ED) Additional Instructions: Encourage hydration. Please do not take the metoclopramide any longer. You may continue with the Antivert, ibuprofen as previously prescribed. Please follow-up with primary care next week for reevaluation. He will also be referred to neurology, please call number listed below to set up appointment Develop fever/chills, increased pain, altered sensation, weakness or other new/worsening symptoms please seek care urgently once again Stand Alone Forms: Work Release Referrals: Derik Barksdale [Primary Care Provider] - Mariah Mijares MD [ [facility] STAFF PHYSICIAN] - Discharge Data Discharge Date/Time-TO BE ENTERED AT DEPARTURE: 01/04/19 14:57 Medical Decision Making Patient is a 43-year-old male presenting today with chief complaint of improving headache, nausea, bilateral upper extremity tingling, slurred speech. Reports that overall, all of his symptoms are improving. Patient reports that the slurred speech has been improving. His father concurs that this is improving. No recent head trauma. Headache has improved. He appears nontoxic. Patient's vital signs are notable for blood pressure of 90/67, pulse of 101. He is afebrile, no nuchal rigidity. No rash. Neurologic exam is intact. There is a family history of brain cancer in his brother. And concern for possible stroke although his bilateral symptoms I find this less likely. Also considered bleed, infectious source, recurrence of first vertiginous migraine. Patient denies any illicit drug use, alcohol use, recent change in medications EKG reviewed by Dr. Becerra, NSR, rate 101. No acute ischmic changes noted. Labs reviewed labs reviewed with any CT reviewed by radiologist, read as negative' Labs were reviewed, no leukocytosis. His creatinine is elevated at 1.52 which is typical for the patient. Magnesium slightly low which is also typical for the patient. Troponin is normal. TSH is normal. Consulted with Dr. Simms who advised that his persistent finding, although improving, slurred speech is nonfocal. His history and exam is not consistent with stroke. She advised that this may be associated with migraine and advised f/u with them in office. Discussed recommendation with the patient. While initiallyhe had denied new medications or illicit drug use, he is now reporting new medication starting yesterday. Unclear as to what this is. Called PCP, patient started on Reglan. Discussed with the patient that the Reglan may be causing some of his exacerbation of symptoms. His symptoms are largely resolved at this time. Encourage hydration. Advised to stop the Reglan. He does have other alternative medications previously prescribed to him for symptomatic management. I advised that he may use his medications. He was given strict return precautions. Advised that he move forward with referral to neurology for further evaluation of his diffuse symptoms. Is given strict return precautions. All his questions and concerns were addressed and he is in agreement with this plan. HPI General Mode of arrival: ambulatory . Date/Time Provider Initiated Documentation: 01/04/19 11:14 . Limitations to Documentation: no limitations . Information obtained by: patient, family and RN notes reviewed . HPI Narrative: Patient is a 43-year-old male, accompanied by his father, with chief complaint of dizziness, nausea, slurred speech, bilateral upper extremity tingling. Reports that he has had these symptoms historically. Was last seen by his primary care in September at which time these issues were addressed. States that the nausea began a few days ago and has been minimal. However, he woke this morning with continued nausea, headache, slurred speech, bilateral upper extremity tingling. Reports that the tingling and slurred speech have been improving. His father came to bring him to the emergency department and feels that the slurred speech has been resolving from an objective standpoint. Patient denies any recent fevers or chills. No head injury. No recent travel. No recent antibiotic. Currently denying any headache. Patient is not anticoagulated. He has a history of metabolic syndrome, diabetes, hypothyroidism, PARTH, hypertension, vertiginous migraine, hypomagnesemia, mild renal insufficiency, postural lightheadedness, anemia, bipolar, hypopituitary is in. Related Data Home Medications Medication Instructions Recorded Confirmed Bydureon 2 mg SQ .WEEKLY 02/23/17 01/04/19 Lantus Solostar U-100 Insulin 50 unit SQ HS 02/23/17 01/04/19 atorvastatin [Lipitor] 40 mg PO HS 02/23/17 01/04/19 bupropion HCl 150 mg PO HS 02/23/17 01/04/19 lamotrigine [Lamictal] 100 mg PO BID 02/23/17 01/04/19 levothyroxine [Synthroid] 125 mcg PO DAILY 02/23/17 01/04/19 lisinopril 10 mg PO HS 02/23/17 01/04/19 metformin 1,000 mg PO BID 02/23/17 01/04/19 quetiapine [Seroquel] 400 mg PO HS 02/23/17 01/04/19 testosterone cypionate 200 mg IM .[id number] 02/23/17 01/04/19 cholecalciferol (vitamin D3) 1,000 units PO DAILY 06/16/17 01/04/19 buspirone 15 mg PO BID 01/24/18 01/04/19 Allergies Allergy/AdvReac Type Severity Reaction Status Date / Time No Known Allergies Allergy Verified 01/04/19 11:04 General Stated Complaint: Headache KEITH: 3 Review of Systems Constitutional Reports as per HPI, Denies chills, Reports fatigue, Denies fever(s), Denies frequent falls, Reports headache(s), Denies poor appetite, Denies snoring and Denies weakness Eyes Reports as per HPI, Denies blurry vision, Denies change in vision and Reports photophobia ENT Denies vertigo, Reports headache(s) and Denies neck pain Cardiovascular Reports as per HPI, Denies chest pain, Denies lightheadedness, Denies radiating jaw, neck or arm pain, Denies dyspnea and Denies dyspnea on exertion Respiratory Reports as per HPI, Denies chest congestion, Denies cough, Denies dyspnea, Denies dyspnea on exertion, Denies snoring, Denies stridor and Denies wheezing Gastrointestinal Reports as per HPI, Denies abdominal pain, Denies change in bowel habits, Reports nausea and Denies vomiting Genitourinary Reports system reviewed and no additional complaints, except as docu (denies change in urinary habits) Musculoskeletal Reports as per HPI, Denies back pain, Denies myalgias, Denies muscle cramps, Denies neck pain, Denies numbness and Reports tingling (Bilateral upper extremities, since resolved) Integumentary/Breasts Reports as per HPI and Denies rash Neurologic Reports as per HPI, Denies abnormal movements, Denies abnormal speech, Denies behavioral changes, Denies confusion, Denies vertigo, Denies frequent falls, Reports headache(s), Denies focal weakness, Denies numbness, Denies sensory deficit, Reports tingling (Bilateral upper extremities, since resolved) and Denies weakness Psychiatric Denies behavioral changes and Denies confusion Endocrine Reports fatigue Allergic/Immunologic Denies wheezing [facility] Medical History Anemia (Chronic) Bipolar 1 disorder (Acute) Diabetes (Chronic) Hypertension (Chronic) Hypomagnesemia (Chronic) Hypopituitarism (Chronic) Hypothyroidism (Chronic) Metabolic syndrome (Chronic) Mild renal insufficiency (Chronic) Obstructive sleep apnea (Chronic) Postural lightheadedness (Chronic) Type 2 diabetes with nephropathy (Chronic) Vertiginous migraine (Acute) Surgical History S/P cholecystectomy (Resolved) Social History Smoking/Tobacco Use Status: Never Alcohol Intake: never Drug use: Never Substance use type: does not use Do you feel safe at home: Yes Do you feel safe in your relationship?: Yes Exam Const General: cooperative, healthy appearing, uncomfortable, no acute distress, well developed and well groomed Nutritional Appearance: well nourished and overweight Orientation: alert, awake and oriented x3 [facility] Head: normal to inspection, no palpable skull fracture, normocephalic and atraumatic Ears: hearing grossly normal bilaterally, external ears normal and TM's normal bilaterally General nose exam: external nose normal Mouth: oral mucosae normal and moist mucous membranes Throat: posterior oropharynx normal Eyes General: appearance normal, both eyes and all related structures Alignment and Position: alignment normal Periorbital: periorbital findings normal Eyelids: eyelids normal Sclera: sclerae normal Cornea: corneas normal Pupils: PERRL EOM: EOM intact bilaterally Neck Neck: normal visual inspection, full ROM, no lymphadenopathy and no meningeal signs Resp Effort & Inspection: normal respiratory effort, able to speak in complete sentences and no respiratory distress Auscultation: clear to auscultation bilaterally, no rales, no rhonchi and no wheezes Cardio Rate: regular rate Rhythm: regular rhythm Heart Sounds: S1 normal and S2 normal GI Inspection: normal to inspection and non-distended Palpation: soft, no hepatosplenomegaly, not firm, no guarding, not rigid and nontender Percussion: normal to percussion Auscultation: normal bowel sounds Back/Spine/Pelvis Cervical Spine: normal cervical lordosis and cervical ROM normal Skin General skin exam: no rashes or lesions noted Neuro General: alert, awake and oriented x3 Cranial Nerves: CN's II-XI intact bilaterally Cognition: normal cognition Speech: speech normal Gait: normal gait Motor: muscle tone normal throughout, strength 5/5 throughout, no pronator drift, no movement abnormalities noted and no fasciculations Sensory Exam: no sensory deficits noted Coordination: [id number] test normal and [id number] test normal Extrem General: normal to inspection, normal capillary refill, no pedal edema and no calf tenderness Psych Appearance: grossly normal and well kempt Mental Status: mental status grossly normal Speech and Movement: speech and movement normal Course Vital Signs Temperature 36.9 C 01/04/19 11:01 Pulse 101 H 01/04/19 11:01 Respiratory Rate 20 01/04/19 11:01 Blood Pressure 90/67 L 01/04/19 11:01 Pulse Oximetry 96 01/04/19 11:01 Temperature 36.9 C 01/04/19 11:01 Temperature Source Temporal Artery Scan 01/04/19 11:01 Pulse 101 H 01/04/19 11:01 Respiratory Rate 20 01/04/19 11:01 Respiratory Effort Non-Labored 01/04/19 11:08 Blood Pressure 90/67 L 01/04/19 11:01 Blood Pressure Position Sitting 01/04/19 11:01 Pulse Oximetry 96 01/04/19 11:01 Oxygen Delivery Method Room Air 01/04/19 11:01 Oxygen Flow Rate 0 01/04/19 11:01 Pain Level 2 01/04/19 11:01
--- NOTE | 2019-01-04 11:31 | DI.CT_ITS ---
SYMPTOM/DIAGNOSIS: SLURRED SPEECH CRANIAL CT: 01/[address] was performed. The ventricular system is normal in appearance. There is no evidence of an intracranial mass lesion. There is no evidence of a subdural or epidural hematoma. No focal areas of decreased attenuation are seen. CONCLUSION: Normal noncontrast Cranial CT.
[2019-01-04] MEDS: Normal Saline 1,000 ML 1000 ML IV (11:54)
[2019-01-04 12:02] LABS: ALT 25 U/L (12-78); Albumin 3.8 g/dL (3.4-5.0); Alkaline Phosphatase 106 U/L (46-116); Anion Gap 12.1 mmol/L (3-11); BUN 19 mg/dL (7-18); Bilirubin, Total 0.3 mg/dL (0.2-1.0); CO2 23.9 mmol/L (21.0-32.0); CREATININE 1.52 mg/dL (0.70-1.30); Calcium 8.9 mg/dL (8.5-10.1); Chloride 102 mmol/L (98-107); Glucose 197 mg/dL (70-100); Potassium 4.4 mmol/L (3.5-5.1); Sodium 138 mmol/L (136-145); Total Protein 7.2 g/dL (6.4-8.2)
[2019-01-04 12:04] LABS: AST < 5 U/L (15-37)
[2019-01-04 12:18] LABS: Absolute Basophil Count 0.08 k/cumm (0.0-0.2); Absolute Eosinophil Count 0.39 k/cumm (0.0-0.7); Absolute Lymphocyte Count 1.31 k/cumm (1.2-3.4); Absolute Monocyte Count 0.08 k/cumm (0.11-0.7); Absolute Neutrophil Count 5.85 k/cumm (1.2-6.7); Atypical Lymphocytes % 5; Diff Comment Manual Differential; HCT 41.4 % (40.0-50.0); HGB 14.4 g/dL (13.5-17.5); Mean Corp. HGB Concentration 34.8 g/dL (32.0-36.0); Mean Corpuscular Hemoglobin 28.7 pg (27.0-33.0); Mean Corpuscular Volume 82.6 fL (80-95); Platelet Count 201 x1000/uL (130-400); RBC 5.01 m/cumm (4.50-6.00); RBC Distribution Width 13.7 % (11.8-14.1); RBC Morphology Normal
[2019-01-04 13:21] LABS: TSH (W/Ref FT4) 1.75 uIU/mL (0.36-3.74)
[2019-01-04 14:22] LABS: Magnesium 1.6 mg/dL (1.8-2.4)
[2019-01-04 14:33] LABS: Troponin I < 0.05 ng/mL (0.00-0.06)
--- NOTE | 2019-01-04 15:17 | NUR.NOTE ---
Nursing Note: Referral faxed to Neurology, Dr. Mijares for follow up. Brittnee Gipson.
== END 2019-01-04 14:57 | disposition home or self-care (01) ==
PROVIDERS: Emergency Provider Physician Assistant; PCP Family Medicine
DX: G43.819 Other migraine, intractable, without status migrainosus (principal); E86.0 Dehydration
CPT/HCPCS: 36415; 80053; 96360; 99284; 70450; 83735; 84443; 84484; 85025

== ENCOUNTER → 2019-01-23 08:23 | Outpatient (BNVA) | payer MEDICARE, MEDICAID, SELFPAY | PROVIDERS: PCP Family Medicine; Referring Provider Physician Assistant; Visit Provider Nurse Practitioner Adult Health | DX: G43.009 Migraine without aura, not intractable, without status migrainosus (principal); E11.42 Type 2 diabetes mellitus with diabetic polyneuropathy; I10 Essential (primary) hypertension | CPT/HCPCS: 99204; 99215 ==

== ENCOUNTER → 2019-03-06 09:30 | Outpatient (BNVA) | payer MEDICARE, MEDICAID, SELFPAY | PROVIDERS: PCP Family Medicine; Referring Provider Family Medicine; Visit Provider Nurse Practitioner Adult Health | DX: G43.009 Migraine without aura, not intractable, without status migrainosus (principal); E11.42 Type 2 diabetes mellitus with diabetic polyneuropathy; I10 Essential (primary) hypertension; Z79.4 Long term (current) use of insulin | CPT/HCPCS: 99213 ==

== ENCOUNTER 2019-03-28 14:09 | Outpatient (REF) | payer MEDICARE, MEDICAID, SELFPAY ==
[2019-03-28 16:22] LABS: Magnesium 1.8 mg/dL (1.8-2.4)
[2019-03-28 16:30] LABS: Hemoglobin A1C 5.9 % (4.5-6.2)
[2019-04-01 13:09] LABS: Testosterone, Free 9.88 ng/dL (4.46-17.1); Testosterone, Total 260 ng/dL (240-950)
== END 2019-03-28 14:29 ==
LOC: NCHCN 14:09
PROVIDERS: PCP Family Medicine; Visit Provider Family Medicine
DX: E11.21 Type 2 diabetes mellitus with diabetic nephropathy (principal); E29.1 Testicular hypofunction; Z12.5 Encounter for screening for malignant neoplasm of prostate; E83.42 Hypomagnesemia
CPT/HCPCS: 84153; 84402; 84403; 83036; 83735

== ENCOUNTER → 2019-04-03 09:01 | Outpatient (BNVA) | payer MEDICARE, MEDICAID, SELFPAY | PROVIDERS: PCP Family Medicine; Referring Provider Family Medicine; Visit Provider Nurse Practitioner Adult Health | DX: G43.009 Migraine without aura, not intractable, without status migrainosus (principal); D64.9 Anemia, unspecified; E23.0 Hypopituitarism; E11.21 Type 2 diabetes mellitus with diabetic nephropathy; Z79.4 Long term (current) use of insulin | CPT/HCPCS: 99213 ==

== ENCOUNTER → 2019-10-02 08:33 | Outpatient (BNVA) | payer MEDICARE, MEDICAID, SELFPAY | PROVIDERS: PCP Family Medicine; Referring Provider Family Medicine; Visit Provider Nurse Practitioner Adult Health | DX: G43.009 Migraine without aura, not intractable, without status migrainosus (principal); E11.9 Type 2 diabetes mellitus without complications; Z79.4 Long term (current) use of insulin; I10 Essential (primary) hypertension | CPT/HCPCS: 99213; 99441 ==

== ENCOUNTER 2019-12-12 10:00 | Outpatient (REF) | payer MEDICARE, MEDICAID, SELFPAY ==
[2019-12-12 20:41] LABS: ALT 25 U/L (16-63); AST 14 U/L (15-37); Albumin 4.5 g/dL (3.4-5.0); Alkaline Phosphatase 109 U/L (46-116); Anion Gap 10.2 mmol/L (3-11); BUN 16 mg/dL (7-18); Bilirubin, Total 0.4 mg/dL (0.2-1.0); CO2 27.8 mmol/L (21.0-32.0); CREATININE 1.46 mg/dL (0.70-1.30); Calcium 9.4 mg/dL (8.5-10.1); Chloride 103 mmol/L (98-107); Estimated GFR 52.45 (mL/min/1.73m2); Glucose 120 mg/dL (74-106); Potassium 4.2 mmol/L (3.5-5.1); Sodium 141 mmol/L (136-145); TSH (W/Ref FT4) 3.52 uIU/mL (0.36-3.74); Total Protein 7.6 g/dL (6.4-8.2)
== END 2019-12-12 10:20 ==
LOC: NCHCN 10:00
PROVIDERS: PCP Family Medicine; Visit Provider Family Medicine
DX: E29.1 Testicular hypofunction (principal); E83.42 Hypomagnesemia; E11.21 Type 2 diabetes mellitus with diabetic nephropathy; E88.81 Metabolic syndrome and other insulin resistance; N28.9 Disorder of kidney and ureter, unspecified; E03.9 Hypothyroidism, unspecified
CPT/HCPCS: 80053; 83735; 84443

== ENCOUNTER 2019-12-16 19:19 | Emergency (ER) | payer MEDICARE, MEDICAID, SELFPAY ==
[2019-12-16 19:34] VITALS: BP 162/76; PULSE 86; RESP 16; TEMP 36.6; O2SAT 97
[2019-12-16] MEDS: Rizatriptan 10 MG TAB PO (20:09)
--- NOTE | 2019-12-16 20:48 | ED.GENADUL_ITS ---
Discharge Plan Disposition Patient Disposition: HOME Condition: Stable Discharge Details Chief Complaint: Headache Clinical Impression: Headache, Confusion Primary Care Provider: Derik Barksdale ED Provider: Noe Kovacs Home Meds and New Rx's Prescriptions: Continued buspirone 30 mg tablet 30 mg PO .am RF: 0 magnesium 250 mg tablet 250 mg PO BID RF: 0 rizatriptan [Maxalt] 10 mg tablet See Rx Instructions PO .COMPLEX Qty: 10 RF: 3 atorvastatin [Lipitor] 40 MG tablet 40 mg PO HS RF: 0 bupropion HCl 150 MG tablet extended release 12 hr 150 mg PO HS RF: 0 quetiapine [Seroquel] 200 MG tablet 400 mg PO HS RF: 0 metformin 1,000 MG tablet 1,000 mg PO BID RF: 0 lisinopril 10 MG tablet 10 mg PO HS RF: 0 testosterone cypionate 2,000 MG/10 ML oil 200 mg IM .[id number] RF: 0 lamotrigine [Lamictal] 100 MG tablet 100 mg PO BID RF: 0 levothyroxine [Synthroid] 112 MCG tablet 125 mcg PO DAILY RF: 0 Lantus Solostar U-100 Insulin 100 UNIT/ML insulin pen 50 unit SQ HS RF: 0 cholecalciferol (vitamin D3) 1,000 UNITS tablet 1,000 units PO DAILY RF: 0 buspirone 15 mg tablet 15 mg PO HS RF: 0 Discharge Instructions Instructions: Migraine Headache (ED) Additional Instructions: Please follow-up with your neurologist. Call tomorrow. Please contact your primary care physician to arrange follow-up. Return to the ER for any worsening or new concerning symptoms. Referrals: Mariah Mijares MD [ [facility] STAFF PHYSICIAN] - Discharge Data Discharge Date/Time-TO BE ENTERED AT DEPARTURE: 12/16/19 21:35 Medical Decision Making 44yo m with history of migraine headaches here with headache that is consistent with prior migraines, also with state of mild confusion this evening. Patient hypertensive on arrival. Neurologically intact. Patient has not taken his prescribed Rizatriptan. Patient was provided dose here in the emergency department and reassessed and had significant improvement. Headache resolved and feeling better. BP improved. Patient requesting discharge. Plan for discharge with outpatient follow-up with neurology. Patient was encouraged to rest at home today and tomorrow. Patient understands importance of arranging timely follow-up and that he should return immediately should have any worsening or new concerning symptoms. HPI General Mode of arrival: ambulatory . Date/Time Provider Initiated Documentation: 12/16/19 19:20 . Limitations to Documentation: no limitations . Information obtained by: patient . HPI Narrative: 44-year-old male with history of diabetes and migraine headaches, here with chief complaint of confusion. Patient notes he was driving around [address] and experienced an odd sensation. He notes that during the spell he seemed confused. He describes losing a sense of time. After this he developed slow onset of diffuse headache that feels like prior migraines. He denies visual changes, numbness or weakness. He has not taken his prescribed Maxalt. Patient notes he typically has migraine headaches every 2 to 3 weeks. He does sometimes have associated dizziness and word finding difficulty with these headaches. He is being followed by neurology. Related Data Home Medications Medication Instructions Recorded Confirmed Lantus Solostar U-100 Insulin 50 unit SQ HS 02/23/17 12/16/19 atorvastatin [Lipitor] 40 mg PO HS 02/23/17 12/16/19 bupropion HCl 150 mg PO HS 02/23/17 12/16/19 lamotrigine [Lamictal] 100 mg PO BID 02/23/17 12/16/19 levothyroxine [Synthroid] 125 mcg PO DAILY 02/23/17 12/16/19 lisinopril 10 mg PO HS 02/23/17 12/16/19 metformin 1,000 mg PO BID 02/23/17 12/16/19 quetiapine [Seroquel] 400 mg PO HS 02/23/17 12/16/19 testosterone cypionate 200 mg IM .[id number] 02/23/17 12/16/19 cholecalciferol (vitamin D3) 1,000 units PO DAILY 06/16/17 12/16/19 buspirone 15 mg tablet 15 mg PO HS tab 03/06/19 12/16/19 buspirone 30 mg tablet 30 mg PO .am tab 03/06/19 12/16/19 magnesium 250 mg tablet 250 mg PO BID tab 10/02/19 12/16/19 rizatriptan 10 mg tablet See Rx Instructions PO .COMPLEX 10/02/19 12/16/19 #10 tab Previous Rx's Medication Instructions Recorded rizatriptan 10 mg tablet See Rx Instructions PO .COMPLEX 10/02/19 #10 tab Allergies Allergy/AdvReac Type Severity Reaction Status Date / Time No Known Allergies Allergy Verified 12/16/19 19:40 General Stated Complaint: Headache KEITH: 3 Review of Systems All systems reviewed & are unremarkable except as noted in HPI and below Constitutional Constitutional: Denies fever(s) Respiratory Respiratory: Denies cough Neurologic Neurologic: Reports as per HPI [facility] Medical History Anemia (Chronic) Bipolar 1 disorder (Acute) Diabetes (Chronic) Hypertension (Chronic) Hypomagnesemia (Chronic) Hypopituitarism (Chronic) Hypothyroidism (Chronic) Metabolic syndrome (Chronic) Migraine headache without aura (Acute) Mild renal insufficiency (Chronic) Obstructive sleep apnea (Chronic) Postural lightheadedness (Chronic) Type 2 diabetes with nephropathy (Chronic) Vertiginous migraine (Acute) Surgical History S/P cholecystectomy (Resolved) Social History Smoking/Tobacco Use Status: Never Alcohol Intake: never Drug use: Never Substance use type: does not use Do you feel safe at home: Yes Do you feel safe in your relationship?: Yes Exam Const General: cooperative and no acute distress HENMT Head: normocephalic and atraumatic Mouth: moist mucous membranes Eyes EOM: EOM intact bilaterally Neck Neck: trachea midline and supple Resp Auscultation: clear to auscultation bilaterally, no rales, no rhonchi and no wh eezes Cardio Rate: regular rate and not tachycardic Rhythm: regular rhythm GI Palpation: soft, not firm, no guarding, no masses, not rigid and nontender Skin General skin exam: no rashes or lesions noted Neuro General: patient alert, patient awake, patient oriented x3 and tone normal Cranial Nerves: CN's II-XI intact bilaterally Cognition: normal cognition Speech: speech normal Motor: muscle tone normal throughout and strength 5/5 throughout Sensory Exam: no sensory deficits noted Extrem General: no edema Psych Appearance: grossly normal Mental Status: mental status grossly normal Speech and Movement: speech and movement normal Course Vital Signs Vital signs: Vital Signs Temperature 36.6 C 12/16/19 19:34 Pulse 86 12/16/19 19:34 Respiratory Rate 16 12/16/19 19:34 Blood Pressure 162/76 H 12/16/19 19:34 Pulse Oximetry 97 12/16/19 19:34 Temperature 36.6 C 12/16/19 19:34 Temperature Source Skin 12/16/19 19:34 Pulse 86 12/16/19 19:34 Respiratory Rate 16 12/16/19 19:34 Respiratory Effort Non-Labored 12/16/19 19:38 Blood Pressure 162/76 H 12/16/19 19:34 Blood Pressure Position Sitting 12/16/19 19:34 Pulse Oximetry 97 12/16/19 19:34 Oxygen Delivery Method Room Air 12/16/19 19:34 Oxygen Flow Rate 0 12/16/19 19:34 Pain Level 8 12/16/19 19:38
[2019-12-16 21:19] VITALS: BP 144/102; PULSE 80; RESP 16; O2SAT 98
--- NOTE | 2019-12-17 06:12 | NUR.NOTE ---
Nursing Note: REFFERALL FAXED TO NEUROLOGY FOR FOLLOW UP CARE REQUESTED BY
== END 2019-12-16 21:35 | disposition home or self-care (01) ==
PROVIDERS: Emergency Provider Student in an Organized Health Care Education/Training Program; PCP Family Medicine
DX: R41.0 Disorientation, unspecified (principal); G43.809 Other migraine, not intractable, without status migrainosus; E11.9 Type 2 diabetes mellitus without complications; Z79.84 Long term (current) use of oral hypoglycemic drugs; I12.9 Hypertensive chronic kidney disease with stage 1 through stage 4 chronic kidney disease, or unspecified chronic kidney disease; N18.9 Chronic kidney disease, unspecified
CPT/HCPCS: 99283

== ENCOUNTER → 2020-01-09 08:58 | Outpatient (BNVA) | payer MEDICARE, MEDICAID, SELFPAY | PROVIDERS: PCP Family Medicine; Referring Provider Family Medicine; Visit Provider Nurse Practitioner Adult Health | DX: G43.009 Migraine without aura, not intractable, without status migrainosus (principal); I10 Essential (primary) hypertension; E11.21 Type 2 diabetes mellitus with diabetic nephropathy | CPT/HCPCS: 99213 ==

== ENCOUNTER → 2020-04-01 08:29 | Outpatient (BNVA) | payer MEDICARE, MEDICAID, SELFPAY | PROVIDERS: PCP Family Medicine; Referring Provider Family Medicine; Visit Provider Nurse Practitioner Adult Health | DX: G43.009 Migraine without aura, not intractable, without status migrainosus (principal); E11.40 Type 2 diabetes mellitus with diabetic neuropathy, unspecified; I10 Essential (primary) hypertension; Z79.4 Long term (current) use of insulin | CPT/HCPCS: 99213 ==

== ENCOUNTER 2020-04-10 14:00 | Outpatient (REF) | payer MEDICARE, MEDICAID, SELFPAY ==
[2020-04-10 19:48] LABS: HCT 43.3 % (40.0-50.0); MCH 29.6 pg (27.0-33.0); MCHC 34.6 % (32.0-36.0); MCV 85.6 fL (80-95); MPV 9.7 fL (8.0-11.0); Platelet Count 224 10^3/uL (130-400); RBC 5.06 10^6/uL (4.36-5.78); RDW 13.6 % (11.8-14.1); RDW-SD 41.8 fL; WBC 7.25 10^3/uL (4.4-10.8)
[2020-04-10 20:13] LABS: Anion Gap 8.5 mmol/L (3-11); BUN 9 mg/dL (7-18); CO2 27.5 mmol/L (21.0-32.0); CREATININE 1.53 mg/dL (0.70-1.30); Chloride 103 mmol/L (98-107); Estimated GFR 49.69 (mL/min/1.73m2); Glucose 213 mg/dL (74-106); Sodium 139 mmol/L (136-145)
[2020-04-14 15:26] LABS: PSA, Screening 0.8 ng/mL (0-2.5)
[2020-04-15 13:23] LABS: Testosterone, Total 295 ng/dL (240-950)
== END 2020-04-10 14:20 ==
LOC: NCHCN 14:00
PROVIDERS: PCP Family Medicine; Visit Provider Family Medicine
DX: E29.1 Testicular hypofunction (principal); N28.9 Disorder of kidney and ureter, unspecified
CPT/HCPCS: 80048; 84153; 84403; 85027

== ENCOUNTER → 2020-05-08 07:48 | Outpatient (BNVA) | payer MEDICARE, MEDICAID, SELFPAY | PROVIDERS: PCP Family Medicine; Referring Provider Family Medicine; Visit Provider Nurse Practitioner Adult Health | DX: G43.009 Migraine without aura, not intractable, without status migrainosus (principal) | CPT/HCPCS: 99212; 99441 ==

== ENCOUNTER 2020-05-20 12:14 | Emergency (ER) | payer OTHER, MEDICARE, MEDICAID, SELFPAY ==
--- NOTE | 2020-05-20 12:15 | DI.CT_ITS ---
EXAM: CT HEAD CERVICAL SPINE WO CLINICAL HISTORY: fall, midline c spine pain, scalp hematoma. TECHNIQUE: Imaging Protocol: Axial computed tomography images with coronal and sagittal reformatted images were created and reviewed COMPARISON: CT CT HEAD FOR STROKE PROTOCOL from 01/04/2019 FINDINGS: Head CT Ventricles and Extra axial spaces: Normal in size and morphology for the patient's age. Hemorrhage: None. Cerebral parenchyma: Normal. Midline shift: None. Brainstem/Cerebellum: Normal. Calvarium: Normal. Visualized Paranasal sinuses/Mastoids: Clear. Cervical Spine CT BONES: Vertebral body heights are maintained. Alignment is normal. There is no evidence of acute frac ture. Degenerative disc changes and facet degenerative changes are seen at C5-6 . SOFT TISSUES: No paraspinal hematoma. The airway appears intact. No pneumothorax is seen at the lung apices. IMPRESSION: Head CT: No acute abnormality. C-spine CT: Degenerative changes, no acute abnormality. RADIATION DOSE DELIVERED: LINK-TO-SR Total DLP DATA REPOSITORY: All CT scans at this facility are submitted to the National Radiology Data Registry (NRDR) Dose Index Registry (DIR) with the [employer] ([employer]). RADIATION OPTIMIZATION: All CT scans at this facility use at least one of these dose optimization te chniques: automated exposure control; mA and/or kV adjustment per patient size (includes targeted exa ms where dose is matched to clinical indication); or iterative reconstruction.
--- NOTE | 2020-05-20 12:15 | DI.CT_ITS ---
EXAM: CT THORACIC SPINE WO CLINICAL HISTORY: fall, midline c /upper T spinepain, scalp hematoma. TECHNIQUE: Imaging Protocol: Axial computed tomography images with coronal and sagittal reformatted images were created and reviewed. CONTRAST MATERIAL: Noncontrast COMPARISON: No exams were available for comparison FINDINGS: Bones: No fractures or dislocations are seen. The alignment of the spine is normal including the cerv icothoracic junction. Degenerative disc changes are seen. Soft tissues: The soft tissues of the chest are unremarkable. No large disk herniations are identifie d. The lungs are clear where visualized. No pneumothorax is visualized. IMPRESSION: Degenerative changes. No acute abnormality. RADIATION DOSE DELIVERED: 1,371.54mGy.cm Total DLP DATA REPOSITORY: All CT scans at this facility are submitted to the National Radiology Data Registry (NRDR) Dose Index Registry (DIR) with the [employer] (ACR). RADIATION OPTIMIZATION: All CT scans at this facility use at least one of these dose optimization te chniques: automated exposure control; mA and/or kV adjustment per patient size (includes targeted exa ms where dose is matched to clinical indication); or iterative reconstruction.
--- NOTE | 2020-05-20 12:15 | W.ED.GENAD ---
Discharge Plan Disposition Patient Disposition: HOME Condition: Good Discharge Details Clinical Impression: Concussion, Neck pain Primary Care Provider: Derik Barksdale ED Provider: Jarek Kerr Home Meds and New Rx's Prescriptions: Continued buspirone 30 mg tablet 30 mg PO .am RF: 0 magnesium 250 mg tablet 500 mg PO DAILY RF: 0 rizatriptan [Maxalt] 10 mg tablet See Rx Instructions PO .COMPLEX Qty: 10 RF: 2 lamotrigine 25 mg tablet 25 mg PO BID RF: 0 Trulicity 0.75 mg/0.5 mL pen injector 0.75 mg subcut QWEEK RF: 0 bupropion HCl 150 MG tablet extended release 12 hr 150 mg PO DAILY RF: 0 metformin 1,000 MG tablet 1,000 mg PO BID RF: 0 lamotrigine [Lamictal] 100 MG tablet 100 mg PO BID RF: 0 levothyroxine [Synthroid] 112 MCG tablet 125 mcg PO DAILY RF: 0 quetiapine [Seroquel] 200 mg tablet 200 mg PO HS RF: 0 cholecalciferol (vitamin D3) 1,000 UNITS tablet 1,000 units PO DAILY RF: 0 buspirone 15 mg tablet 15 mg PO HS RF: 0 hydroxyzine pamoate [Vistaril] 25 mg capsule 25 mg PO TID RF: 0 Discharge Instructions Instructions: Concussion (ED), Neck Pain (ED) Additional Instructions: At this time the CT scan shows no evidence of fracture for your neck, upper back, or head. You do have a mild concussion, please take it easy for the next 2 to 3 days, relax, and do not do anything excessive. Take Tylenol and Motrin as needed for the neck pain, heating pad or ice may also help. Use a soft collar only if it helps improve your symptoms for support. If you notice any worsening of your symptoms, or any new symptoms such as vomiting, diarrhea, fever, chills, shortness of breath, chest pain, numbness, weakness, or fainting , please return immediately to the emergency department for reevaluation. Please follow up with your primary care provider as soon as possible for reassessment and reevaluation. As always, it was a pleasure participating in your medical care today. Stand Alone Forms: Work Release Referrals: Derik Barksdale [Primary Care Provider] - Medical Decision Making 44-year-old male with a past medical history of hypertension, diabetes, bipolar, presents today for evaluation of fall. Patient states that an hour or 2 ago while he was at work at [employer] he slipped and hit the back of his head. He did not lose consciousness, he recalls the entire event. However after falling he had notable pain in the back of his head, but also of the neck which he thought was atypical. He has come to the ER for further evaluation. He denies any vision changes, numbness or tingling, or weakness. He denies any other complaints at this time. He is not on any blood thinners. Physical exam demonstrates midline spinal tenderness for C5-C6 C7-T1 and T2. Notable scalp hematoma in the posterior occiput. No other signs of significant intracranial trauma, no neurologic deficits. Symptoms appear consistent with concussion at the very least. With midline tenderness he was immediately placed in c-collar, we will get a CT scan of the head neck and T-spine. 1:[address] results have returned, no evidence of acute process per radiology, no C-spine thoracic or intracranial fracture. Repeat neurologic exam is normal, patient has improvement of his neck pain with the Tylenol. We will give a soft collar for home use/support. Discussed red flags which to return. I have extensively reviewed the treatment plan and discharge instructions with the patient. I have addressed all patient concerns at this time. The patient was made aware of what symptoms to monitor for that would warrant a return to the emergency department. Discussed the plan with the patient, they demonstrate verbal understanding and agreement with our assessment and plan at this time. Diagnosis concussion, contusion, and neck strain. FINDINGS: Bones: No fractures or dislocations are seen. The alignment of the spine is normal including the cervicothoracic junction. Degenerative disc changes are seen. Soft tissues: The soft tissues of the chest are unremarkable. No large disk herniations are identified. The lungs are clear where visualized. No pneumothorax is visualized. IMPRESSION: Degenerative changes. No acute abnormality. FINDINGS: Head CT Ventricles and Extra axial spaces: Normal in size and morphology for the patient's age. Hemorrhage: None. Cerebral parenchyma: Normal. Midline shift: None. Brainstem/Cerebellum: Normal. Calvarium: Normal. Visualized Paranasal sinuses/Mastoids: Clear. Cervical Spine CT BONES: Vertebral body heights are maintained. Alignment is normal. There is no evidence of acute fracture. Degenerative disc changes and facet degenerative changes are seen at C5-6 . SOFT TISSUES: No paraspinal hematoma. The airway appears intact. No pneumothorax is seen at the lung apices. IMPRESSION: Head CT: No acute abnormality. C-spine CT: Degenerative changes, no acute abnormality. HPI General Date/Time Provider Initiated Documentation: 05/20/20 12:15. HPI Narrative: 44-year-old male with a past medical history of hypertension, diabetes, bipolar, presents today for evaluation of fall. Patient states that an hour or 2 ago while he was at work at [employer] he slipped and hit the back of his head. He did not lose consciousness, he recalls the entire event. However after falling he had notable pain in the back of his head, but also of the neck which he thought was atypical. He has come to the ER for further evaluation. He denies any vision changes, numbness or tingling, or weakness. He denies any other complaints at this time. He is not on any blood thinners. Related Data Home Medications Medication Instructions Recorded Confirmed bupropion HCl 150 mg PO DAILY 02/23/17 05/20/20 lamotrigine [Lamictal] 100 mg PO BID 02/23/17 05/20/20 levothyroxine [Synthroid] 125 mcg PO DAILY 02/23/17 05/20/20 metformin 1,000 mg PO BID 02/23/17 05/20/20 cholecalciferol (vitamin D3) 1,000 units PO DAILY 06/16/17 05/20/20 buspirone 15 mg tablet 15 mg PO HS tab 03/06/19 05/20/20 buspirone 30 mg tablet 30 mg PO .am tab 03/06/19 05/20/20 magnesium 250 mg tablet 500 mg PO DAILY tab 10/02/19 05/20/20 rizatriptan 10 mg tablet See Rx Instructions PO .COMPLEX 04/01/20 05/20/20 #10 tab dulaglutide 0.75 mg/0.5 mL 0.75 mg SUBCUT QWEEK 05/08/20 05/20/20 subcutaneous pen injector lamotrigine 25 mg tablet 25 mg PO BID tab 05/08/20 05/20/20 quetiapine 200 mg tablet 200 mg PO HS tab 05/08/20 05/20/20 hydroxyzine pamoate [Vistaril] 25 mg PO TID 05/20/20 05/20/20 Previous Rx's Medication Instructions Recorded rizatriptan 10 mg tablet See Rx Instructions PO .COMPLEX 04/01/20 #10 tab Allergies Allergy/AdvReac Type Severity Reaction Status Date / Time No Known Allergies Allergy Verified 05/20/20 12:25 General KEITH: 3 Review of Systems All systems reviewed & are unremarkable except as noted in HPI and below PFSH Medical History (Updated 05/20/20 @ 12:35 by Jarek Kerr DO) Anemia Bipolar 1 disorder Diabetes Hypertension Hypomagnesemia Hypopituitarism Hypothyroidism Metabolic syndrome Migraine headache without aura Mild renal insufficiency Obstructive sleep apnea Postural lightheadedness Type 2 diabetes with nephropathy Vertiginous migraine Surgical History S/P cholecystectomy Social History Smoking/Tobacco Use Status: Never Smoking risk assessment performed?: Yes Alcohol Intake: never Drug use: Never Substance use type: does not use Do you feel safe at home: Yes Do you feel safe in your relationship?: Yes Exam Narrative Exam Narrative: 1.Const: Well-nourished, Well-developed, appearing stated age 2.Eyes: PERRL, no conjunctival injection, and symmetrical lids. 3.ENT: Atraumatic external nose and ears. Moist MM. Neck: Symmetric, trachea midline, No thyromegaly. There is no evidence of raccoon eyes, lagunas sign, CSF rhinorrhea, mastoid tenderness, cranial crepitus, hemotympanum, exophthalmos, or hyphema. Patient demonstrates intact dentition with no signs of tooth avulsion or fracture, no signs of jaw deformity, no evidence of a LeFort's fracture, with an intact palate, nose and orbital region. There is no evidence of a nasal septal hematoma. No proptosis. Jaw closes symmetrically. Airway is clear. 4.CVS: +S1/S2, No murmurs or gallops. Peripheral pulses 2+ and equal in all extremities. Brisk capillary refill in all extremities. 5.RESP: Unlabored respiratory effort. Clear to auscultation bilaterally. No wheezes rales or rhonchi 6.GI: Soft, Nontender/Nondistended, No hepatosplenomegaly. No guarding or rebound. 7.MSK: No midline tenderness to palpation over the LS spine. He does have midline tenderness in C5-6-7 and T1 and T2. Patient was placed in c-collar immediately. Patient has +5 out of 5 strength in the lower extremities in dorsiflexion and plantarflexion, knee flexion and extension, hip flexion and extension. Normal strength for dorsiflexion and plantar flexion of the great toe bilaterally. There is +2 over 2 dorsalis pedis pulses bilaterally. There is normal sensation to the skin with light touch at the foot, knee, and hip. Normal saddle sensation. Good sensation over the deep sural nerve area bilaterally. Rectal exam deferred. Reflexes are +2 over 4 in the patellar reflex bilaterally. +5 out of 5 strength in the medial, ulnar, radial nerve distribution bilaterally in the hands as well as intact light touch sensation to these dermatomes on the hands. Hematoma noted in posterior occiput. No depression. 8.Skin: Warm, Dry. No rashes or lesions. 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 Sensation grossly intact, no focal neurologic deficits. 10.Psych: (AAO) x3. Appropriate mood and affect
[2020-05-20 12:17] VITALS: BP 178/117; PULSE 84; RESP 20; TEMP 36.7; O2SAT 98
[2020-05-20] MEDS: Acetaminophen 500 MG TAB 1000 MG PO (12:30)
[2020-05-20 13:21] VITALS: BP 144/85; PULSE 61; RESP 18; O2SAT 98
[2020-05-20 13:55] VITALS: BP 142/81; PULSE 80; RESP 18; TEMP 36.2; O2SAT 98
--- NOTE | 2020-05-27 09:44 | NUR.NOTE ---
Nursing Note: Edmundo called concerned that his accident occurred at work and wants to know if that was stated in care note. It was mentioned in the Physcian note. Referred to access dept to check on billing as work related.
== END 2020-05-20 14:05 | disposition home or self-care (01) ==
PROVIDERS: Emergency Provider Student in an Organized Health Care Education/Training Program; PCP Family Medicine
DX: S06.0X0A Concussion without loss of consciousness, initial encounter (principal); S00.03XA Contusion of scalp, initial encounter; M54.2 Cervicalgia; S16.1XXA Strain of muscle, fascia and tendon at neck level, initial encounter; W01.198A Fall on same level from slipping, tripping and stumbling with subsequent striking against other object, initial encounter; Y99.0 Civilian activity done for income or pay; I10 Essential (primary) hypertension; E11.9 Type 2 diabetes mellitus without complications; Z79.84 Long term (current) use of oral hypoglycemic drugs
CPT/HCPCS: 99284; 70450; 72125; 72128; 99285

== ENCOUNTER → 2020-06-26 12:25 | Outpatient (BNVA) | payer MEDICARE, MEDICAID, SELFPAY | PROVIDERS: PCP Family Medicine; Referring Provider Family Medicine; Visit Provider Nurse Practitioner Adult Health | DX: F07.81 Postconcussional syndrome (principal); R51.9 Headache, unspecified | CPT/HCPCS: 64405; 99214; 99215 ==

== ENCOUNTER 2020-06-30 12:37 | Emergency (ER) | payer MEDICARE, MEDICAID, SELFPAY ==
[2020-06-30] VITALS (48 sets, daily range): BP systolic 97–137; BP diastolic 56–100; PULSE 82–107; RESP 10–24; TEMP 36.7; O2SAT 93–100
--- NOTE | 2020-06-30 12:45 | RT.EKG_ITS ---
APPROVED REPORT Exam: Resting ECG Patient Location: E HR:103 bpm ECG Measurements Heart Rate 103 AXIS TN 145 P 71 QRSd 95 QRS 58 QT 354 T [id number] QTc 463 Conclusion Sinus tachycardia...rate> 99 sinus tachycardia at 103, normal axis, nonspecific ST changes, no major change from prior 01/08, no [facility], nondiagnostic EKG
--- NOTE | 2020-06-30 13:00 | DI.RAD_ITS ---
EXAM: XR PORTABLE CHEST AP CLINICAL HISTORY: chest pain TECHNIQUE: 2D digital imaging was performed. COMPARISON: No exams were available for comparison FINDINGS: MEDIASTINUM: Normal. HEART: Normal. PULMONARY VASCULATURE: Normal. LUNGS: Clear. PLEURAL SPACE: No pleural effusion or pneumothorax. BONE:Within normal limits for the patient's age. OTHER FINDINGS:Normal. IMPRESSION: No acute pulmonary findings. DATA REPOSITORY: RADIATION DOSE DELIVERED:
--- NOTE | 2020-06-30 13:06 | ED.GENADUL_ITS ---
Discharge Plan Disposition Patient Disposition: HOME Condition: Improving Discharge Details Clinical Impression: Chest pain Primary Care Provider: Derik Barksdale ED Provider: Hammad Mcclellan Home Meds and New Rx's Prescriptions: Continued buspirone 30 mg tablet 30 mg PO .am RF: 0 magnesium 250 mg tablet 500 mg PO DAILY RF: 0 rizatriptan [Maxalt] 10 mg tablet See Rx Instructions PO .COMPLEX Qty: 10 RF: 2 lamotrigine 25 mg tablet 25 mg PO BID RF: 0 Trulicity 0.75 mg/0.5 mL pen injector 0.75 mg subcut QWEEK RF: 0 bupropion HCl 150 MG tablet extended release 12 hr 150 mg PO DAILY RF: 0 metformin 1,000 MG tablet 1,000 mg PO BID RF: 0 lamotrigine [Lamictal] 100 MG tablet 100 mg PO BID RF: 0 levothyroxine [Synthroid] 112 MCG tablet 125 mcg PO DAILY RF: 0 quetiapine [Seroquel] 200 mg tablet 200 mg PO HS RF: 0 cholecalciferol (vitamin D3) 1,000 UNITS tablet 1,000 units PO DAILY RF: 0 buspirone 15 mg tablet 15 mg PO HS RF: 0 hydroxyzine pamoate [Vistaril] 25 mg capsule 25 mg PO TID RF: 0 No Action ondansetron 4 mg tablet,disintegrating 4 mg PO BID PRN PRN (Reason: nausea and vomiting) Qty: 10 RF: 0 pantoprazole [Protonix] 40 mg tablet,delayed release (DR/EC) 40 mg PO DAILY Qty: 30 RF: 0 nitroglycerin 0.4 mg tablet, sublingual 0.4 mg sublingual Q5M PRN (Reason: chest pain) Qty: 30 RF: 0 Discharge Instructions Instructions: Chest Pain (ED) Additional Instructions: Please return immediately to the emergency department if you develop any new or worsening symptoms, if your condition does not improve as expected, or if you b ecome otherwise concerned. It is extremely important that you call soon as possible to make an appointment to be seen in follow-up for this visit by your primary care doctor. Dr Kovacs has ordered a stress test for you. Discharge Data Discharge Date/Time-TO BE ENTERED AT DEPARTURE: 06/30/20 17:20 Medical Decision Making <Rebeca Kovacs MD - Last Filed: 07/07/20 08:53> Qiana Kauffman is a 44-year-old man with a history of diabetes, hypothyroidism, hypertension who presented to the emergency department with chest pain, shortness of breath, lightheadedness, tingling in bilateral fingers that began while patient was seated and at rest. On exam patient is well appearing. Benign cardiopulmonary exam. No posterior calf tenderness palpation or edema lower extremities. Concern for ACS, pulmonary embolism, musculoskeletal, other. Exam/history at this time not consistent with acute aortic process, sepsis. EKG is nondiagnostic. Plan for chest x-ray, screening labs, IV, telemetry, sublingual nitroglycerin. Patient reporting chest pain relieved completely after sublingual nitroglycerin x2. Labs reviewed, troponin negative. Plan to repeat troponin. patient is low risk by HEART score, anticipate discharge if troponin negative. Outpatient stress test ordered by me. Patient signed out to Dr. Mcclellan at time of shift change with repeat troponin pending. Medical Records Medical records reviewed: Yes I reviewed the patient's medical records. Imaging Data Radiologic Study: Attestation: I personally reviewed and interpreted this imaging study as follows: Radiologist's impression: EXAM: XR PORTABLE CHEST AP CLINICAL HISTORY: chest pain TECHNIQUE: 2D digital imaging was performed. COMPARISON: No exams were available for comparison FINDINGS: MEDIASTINUM: Normal. HEART: Normal. PULMONARY VASCULATURE: Normal. LUNGS: Clear. PLEURAL SPACE: No pleural effusion or pneumothorax. BONE:Within normal limits for the patient's age. OTHER FINDINGS:Normal. IMPRESSION: No acute pulmonary findings. Lab Data Lab results reviewed: Yes I reviewed the patient's lab results. ECG Data Attestation: I personally reviewed and interpreted this ECG (s) as follows: Interpretation: EKG shows sinus tachycardia at 103, normal axis, nonspecific ST changes, no major change from prior 01/08, no STEMI, nondiagnostic EKG <Hammad Mcclellan MD - Last Filed: 06/30/20 17:09> Received signout from Dr. Kovacs. Second troponin negative and Dr Kovacs ordered outpatient stress test. HPI <Rebeca Kovacs MD - Last Filed: 07/07/20 08:53> General Mode of arrival: ambulatory . Date/Time Provider Initiated Documentation: 06/30/20 12:44 . Limitations to Documentation: no limitations . Information obtained by: patient, RN notes reviewed and old records reviewed . HPI Narrative: Edmundo Kauffman is a 44-year-old man with a history of hypertension, diabetes, mild renal insufficiency, hypothyroidism presenting to emergency department with chest pain. Patient reports that he was sitting at his computer at approximately 10:00 this morning when he began to feel a heaviness in the center of his chest and also began to feel somewhat short of breath. Patient also reports that he felt lightheaded and that his fingers were tingling. Patient reports that he went to lie down, however this did not change his symptoms significantly. Patient reports that his symptoms have been basically unchanged since onset. He has not noticed worsening of pain with walking, no other known modifiers. Patient reports that he has never had similar symptoms in the past. He reports that he has been feeling well in the past few days and was previously in his usual state of health. He denies any other pain, fever, cough, vomiting, diarrhea, numbness (other than tingling bilateral fingers), weakness. Has been eating and drinking as usual. Patient reports that his father had a heart attack at approximately age 60, he is unaware of heart disease on his mother side other than hypertension. He denies nicotine/tobacco use, recreational drugs, alcohol. Related Data Home Medications Medication Instructions Recorded Confirmed bupropion HCl 150 mg PO DAILY 02/23/17 07/04/20 lamotrigine [Lamictal] 100 mg PO BID 02/23/17 07/04/20 levothyroxine [Synthroid] 125 mcg PO DAILY 02/23/17 07/04/20 metformin 1,000 mg PO BID 02/23/17 07/04/20 cholecalciferol (vitamin D3) 1,000 units PO DAILY 06/16/17 07/04/20 buspirone 15 mg tablet 15 mg PO HS tab 03/06/19 07/04/20 buspirone 30 mg tablet 30 mg PO .am tab 03/06/19 07/04/20 magnesium 250 mg tablet 500 mg PO DAILY tab 10/02/19 07/04/20 rizatriptan 10 mg tablet See Rx Instructions PO .COMPLEX 04/01/20 07/04/20 #10 tab dulaglutide 0.75 mg/0.5 mL 0.75 mg SUBCUT QWEEK 05/08/20 07/04/20 subcutaneous pen injector lamotrigine 25 mg tablet 25 mg PO BID tab 05/08/20 07/04/20 quetiapine 200 mg tablet 200 mg PO HS tab 05/08/20 07/04/20 hydroxyzine pamoate [Vistaril] 25 mg PO TID 05/20/20 07/04/20 nitroglycerin 0.4 mg SUBLINGUAL Q5M PRN #30 tab 07/04/20 ondansetron 4 mg PO BID PRN PRN #10 tab 07/04/20 pantoprazole [Protonix] 40 mg PO DAILY #30 tab 07/04/20 Previous Rx's Medication Instructions Recorded rizatriptan 10 mg tablet See Rx Instructions PO .COMPLEX 04/01/20 #10 tab nitroglycerin 0.4 mg SUBLINGUAL Q5M PRN #30 tab 07/04/20 ondansetron 4 mg PO BID PRN PRN #10 tab 07/04/20 pantoprazole [Protonix] 40 mg PO DAILY #30 tab 07/04/20 Allergies Allergy/AdvReac Type Severity Reaction Status Date / Time No Known Allergies Allergy Verified 06/30/20 13:27 General Stated Complaint: Chest Pain KEITH: 2 Review of Systems <Rebeca Kovacs MD - Last Filed: 07/07/20 08:53> Narrative: Constitutional: denies fevers Eyes: denies eye pain ENT: denies ear pain, dental pain, sore throat Cardiovascular: denies edema, reports chest pain Respiratory: denies cough, reports shortness of breath GI: denies abdominal pain, vomiting, diarrhea : denies flank pain MSK: denies back pain, neck pain, arthralgias, myalgias Skin: denies rash Neuro: denies headaches, numbness, weakness, report tingling bilateral fingers PFSH <Rebeca Kovacs MD - Last Filed: 07/07/20 08:53> Medical History Anemia Bipolar 1 disorder Diabetes Hypertension Hypomagnesemia Hypopituitarism Hypothyroidism Metabolic syndrome Migraine headache without aura Mild renal insufficiency Obstructive sleep apnea Post concussive syndrome Postural lightheadedness Type 2 diabetes with nephropathy Vertiginous migraine Surgical History S/P cholecystectomy Social History Smoking/Tobacco Use Status: Never Smoking risk assessment performed?: Yes Alcohol Intake: never Drug use: Never Substance use type: does not use Do you feel safe at home: Yes Do you feel safe in your relationship?: Yes Exam <Rebeca Kovacs MD - Last Filed: 07/07/20 08:53> Narrative Exam Narrative: Constitutional: well and [id number], pleasant, conversing normally HENT: head atraumatic/normocephalic/normal inspection, mucous membranes moist Eyes: conjunctiva normal, sclera normal, pupils 3mm b/l Neck: no stridor, normal ROM, trachea midline Chest: normal inspection Resp: normal work of breathing, LCTAB Cardio: normal rate, normal rhythm, no murmur appreciated GI: abdomen soft, non-tender, non-distended Back: normal inspection, no rash Skin: warm, dry, normal color, no rash Neuro: alert, not altered, grossly non-focal, normal tone Ext: no edema, no posterior calf tenderness to palpation Psych: normal mood, normal affect, normal behavior Course <Rebeca Kovacs MD - Last Filed: 07/07/20 08:53> Vital Signs Vital signs: Vital Signs Temperature 36.7 C 06/30/20 12:53 Pulse 104 H 06/30/20 12:53 Blood Pressure 131/87 06/30/20 12:53 Pulse Oximetry 100 06/30/20 12:53 Temperature 36.7 C 06/30/20 12:53 Temperature Source Temporal Artery Scan 06/30/20 12:53 Pulse 104 H 06/30/20 12:53 Blood Pressure 131/87 06/30/20 12:53 Pulse Oximetry 100 06/30/20 12:53 Oxygen Delivery Method Room Air 06/30/20 12:53 Oxygen Flow Rate 0 06/30/20 12:53 Pain Level 5 06/30/20 12:53 Sign Out <Rebeca Kovacs MD - Last Filed: 07/07/20 08:53> Sign Out Data: Sign Out Comment: Patient signed out to Dr. Mcclellan at time of shift change with repeat troponin, repeat EKG pending, anticipate discharge if testing negative Last updated by Rebeca Kovacs MD at 06/30/20 16:48
[2020-06-30] MEDS: Normal Saline Flush 10 ML SYR IVP (13:19)
[2020-06-30] MEDS: Normal Saline 500 ML IV (13:19)
[2020-06-30] MEDS: nitroGLYcerin 0.4 MG TAB SL ×2 (13:20→13:25)
[2020-06-30 14:56] LABS: Abs Immature Grans 0.01 10^3/uL (0.0-0.06); Absolute Basophil Count 0.05 10^3/uL (0.0-0.2); Absolute Eosinophil Count 0.17 10^3/uL (0.0-0.7); Absolute Lymphocyte Count 1.92 10^3/uL (1.2-3.4); Absolute Monocyte Count 0.53 10^3/uL (0.1-0.8); Absolute Neutrophil Count 4.69 10^3/uL (1.2-6.7); Basophils % 0.7; Eosinophils % 2.3; HCT 43.6 % (40.0-50.0); HGB 15.2 g/dL (13.5-17.5); Immature Grans % 0.1; Lymphocytes % 26.1; MCH 28.9 pg (27.0-33.0); MCHC 34.9 % (32.0-36.0); MCV 82.9 fL (80-95); MPV 9.2 fL (8.0-11.0); Monocytes % 7.2; Neutrophils % 63.6; Nucleated RBC 0 %; Platelet Count 215 10^3/uL (130-400); RBC 5.26 10^6/uL (4.36-5.78); RDW 12.4 % (11.8-14.1); RDW-SD 37.1 fL; WBC 7.37 10^3/uL (4.4-10.8)
[2020-06-30 15:15] LABS: ALT 65 U/L (16-63); AST 32 U/L (15-37); Albumin 4.4 g/dL (3.4-5.0); Alkaline Phosphatase 155 U/L (46-116); Anion Gap 11.4 mmol/L (3-11); BUN 15 mg/dL (7-18); Bilirubin, Total 0.4 mg/dL (0.2-1.0); CO2 25.6 mmol/L (21.0-32.0); CREATININE 1.4 mg/dL (0.70-1.30); Calcium 9.4 mg/dL (8.5-10.1); Chloride 101 mmol/L (98-107); Estimated GFR 55.05 (mL/min/1.73m2); Glucose 273 mg/dL (74-106); Magnesium 2.1 mg/dL (1.8-2.4); NT-proBNP 8 pg/mL (<300); Potassium 3.7 mmol/L (3.5-5.1); Sodium 138 mmol/L (136-145)
[2020-06-30 15:16] LABS: Troponin I < 0.05 ng/mL (<0.06)
[2020-06-30] MEDS: Normal Saline 1,000 ML 1000 ML IV (15:26)
[2020-06-30 15:28] LABS: D-Dimer 121 ng/mlFEU (<500)
--- NOTE | 2020-06-30 16:45 | RT.EKG_ITS ---
APPROVED REPORT Exam: Resting ECG Patient Location: E HR:84 bpm ECG Measurements Heart Rate 84 AXIS NC 162 P 47 QRSd 100 QRS 15 QT 404 T 76 QTc 479 Conclusion Sinus rhythm...normal P axis, V-rate 60- 99
[2020-06-30 16:53] LABS: Troponin I < 0.05 ng/mL (<0.06)
--- NOTE | 2020-06-30 17:48 | NUR.NOTE ---
REFERRAL FAXED TO [facility] FOR [facility]/REQUISITION FOR TREADMILL STRESS TEST FAXED.Nursing Note:
[2020-07-01 13:45] LABS: COVID-19 RT-PCR UVMMC Result Negative (Negative)
--- NOTE | 2020-07-01 15:17 | NUR.NOTE ---
Nursing Note: Pt called via telephone number in chart, pt notified of negative covid results.
== END 2020-06-30 17:20 | disposition home or self-care (01) ==
PROVIDERS: Student in an Organized Health Care Education/Training Program; Emergency Provider Emergency Medicine; PCP Family Medicine
DX: R07.89 Other chest pain (principal); Z82.49 Family history of ischemic heart disease and other diseases of the circulatory system; Z03.818 Encounter for observation for suspected exposure to other biological agents ruled out
CPT/HCPCS: 36415; 80053; 93005; 96360; 96361; 99285; U0003; U0005; 71045; 83735; 83880; 84484; 85025; 85379; 93010

== ENCOUNTER 2020-07-04 00:29 | Observation (INO) | payer MEDICARE, MEDICAID, SELFPAY ==
[2020-07-04] VITALS (32 sets, daily range): BP systolic 88–151; BP diastolic 49–100; PULSE 70–100; RESP 11–20; TEMP 36.3–36.6; O2SAT 94–98
--- NOTE | 2020-07-04 00:15 | RT.EKG_ITS ---
APPROVED REPORT Exam: Resting ECG Patient Location: E HR:62 bpm ECG Measurements Heart Rate 62 AXIS FL 145 P 42 QRSd 96 QRS 51 QT 443 T 95 QTc 449 Conclusion Sinus rhythm...normal P axis, V-rate 60- 99 Nonspecific T abnormalities, lateral leads...T <-0.10mV, I aVL V5 V6 Normal [place] There are no significant changes compared to prior EKG performed on 06/30/2020 at 16:48.
--- NOTE | 2020-07-04 00:25 | W.ED.GENAD ---
Discharge Plan Disposition Patient Disposition: [facility] INPATIENT Condition: Fair Discharge Details Clinical Impression: Chest pain Primary Care Provider: Derik Barksdale ED Provider: Edmundo Higuera [place] Meds and New Rx's Prescriptions: No Action buspirone 30 mg tablet 30 mg PO .am RF: 0 magnesium 250 mg tablet 500 mg PO DAILY RF: 0 rizatriptan [Maxalt] 10 mg tablet See Rx Instructions PO .COMPLEX Qty: 10 RF: 2 lamotrigine 25 mg tablet 25 mg PO BID RF: 0 Trulicity 0.75 mg/0.5 mL pen injector 0.75 mg subcut QWEEK RF: 0 bupropion HCl 150 MG tablet extended release 12 hr 150 mg PO DAILY RF: 0 metformin 1,000 MG tablet 1,000 mg PO BID RF: 0 lamotrigine [Lamictal] 100 MG tablet 100 mg PO BID RF: 0 levothyroxine [Synthroid] 112 MCG tablet 125 mcg PO DAILY RF: 0 quetiapine [Seroquel] 200 mg tablet 200 mg PO HS RF: 0 cholecalciferol (vitamin D3) 1,000 UNITS tablet 1,000 units PO DAILY RF: 0 buspirone 15 mg tablet 15 mg PO HS RF: 0 hydroxyzine pamoate [Vistaril] 25 mg capsule 25 mg PO TID RF: 0 Medical Decision Making Patient presenting with recurrent chest pain with associated lightheadedness, nausea, shortness of breath which resolved with nitroglycerin and aspirin by EMS. Seen here on Tuesday for same. Stress test scheduled for Tuesday. He does have risk factors including diabetes, possibly hypertension though patient denies all the medical records document. EKG tonight is unchanged compared to those from Tuesday. Plan recheck of laboratory studies and discussion with hospitalist for chest pain observation admission and stress testing today given recurrent symptoms and risk factors. Repeat labs tonight continues to be unremarkable. First troponin negative. Case discussed with hospitalist, Dr. Parish. Patient will be admitted chest painobs for 2 more sets of enzymes and stress testing later today. He has remained pain-free in the department after getting nitroglycerin from EMS. Medical Records Medical records reviewed: Yes I reviewed the patient's medical records. Lab Data Lab results reviewed: Yes I reviewed the patient's lab results. ECG Data Attestation: I personally reviewed and interpreted this ECG (s) as follows: Prior ECG tracings: available for review Interpretation: see EKG HPI General Mode of arrival: EMS. Date/Time Provider Initiated Documentation: 07/04/20 00:44. Limitations to Documentation: no limitations. Information obtained by: patient, EMS, RN notes reviewed and old records reviewed. HPI Narrative: Patient presents to ED by ambulance with chest pain, lightheadedness, nausea, shortness of breath. Patient symptoms started about 1 hour prior to arrival. He called EMS for onset of symptoms while watching videos. He was seen here on Tuesday for similar presentation and saying painful. Ruled out and is scheduled for stress testing on Tuesday. He reports no symptoms since Tuesday until ton. Had recurrent symptoms at rest. Resolved with 1 sublingual nitroglycerin and 4 baby aspirin given by EMS. Denies fever, cough, abdominal pain, radiation of pain, neurologic changes. Related Data Home Medications Medication Instructions Recorded Confirmed bupropion HCl 150 mg PO DAILY 02/23/17 06/30/20 lamotrigine [Lamictal] 100 mg PO BID 02/23/17 06/30/20 levothyroxine [Synthroid] 125 mcg PO DAILY 02/23/17 06/30/20 metformin 1,000 mg PO BID 02/23/17 06/30/20 cholecalciferol (vitamin D3) 1,000 units PO DAILY 06/16/17 06/30/20 buspirone 15 mg tablet 15 mg PO HS tab 03/06/19 06/30/20 buspirone 30 mg tablet 30 mg PO .am tab 03/06/19 06/30/20 magnesium 250 mg tablet 500 mg PO DAILY tab 10/02/19 06/30/20 rizatriptan 10 mg tablet See Rx Instructions PO .COMPLEX 04/01/20 06/30/20 #10 tab dulaglutide 0.75 mg/0.5 mL 0.75 mg SUBCUT QWEEK 05/08/20 06/30/20 subcutaneous pen injector lamotrigine 25 mg tablet 25 mg PO BID tab 05/08/20 06/30/20 quetiapine 200 mg tablet 200 mg PO HS tab 05/08/20 06/30/20 hydroxyzine pamoate [Vistaril] 25 mg PO TID 05/20/20 06/30/20 Previous Rx's Medication Instructions Recorded rizatriptan 10 mg tablet See Rx Instructions PO .COMPLEX 04/01/20 #10 tab Allergies Allergy/AdvReac Type Severity Reaction Status Date / Time No Known Allergies Allergy Verified 06/30/20 13:27 General KEITH: 2 Review of Systems Narrative: 03/05 Review of Systems completed and is negative except as stated above in HPI (Systems reviewed: Const, Eyes, ENT, Resp, CV, GI, , MSK, Skin, Neuro) PFSH Medical History Anemia Bipolar 1 disorder Diabetes Hypertension Hypomagnesemia Hypopituitarism Hypothyroidism Metabolic syndrome Migraine headache without aura Mild renal insufficiency Obstructive sleep apnea Post concussive syndrome Postural lightheadedness Type 2 diabetes with nephropathy Vertiginous migraine Surgical History S/P cholecystectomy Social History Smoking/Tobacco Use Status: Never Smoking risk assessment performed?: Yes Alcohol Intake: never Drug use: Never Substance use type: does not use Do you feel safe at home: Yes Do you feel safe in your relationship?: Yes Exam Narrative Exam Narrative: Const: WDWN male in NAD. HEENT: NC/AT. Normal facial exam. Eyes: Normal conjunctiva and sclera. Neck: Supple. Trachea midline. Lungs: Normal respiratory effort. Lungs are clear. Cor: RRR without murmur/gallop. Good radial pulses. GI: Soft. NT/ND. No guarding or rebound. Neuro: A+O x 3. Normal speech, mentation, gait. Cranial nerves II - XII grossly intact. No gross motor or sensory deficit. Ext: No C/C/E. Skin: Warm and dry without rash.
[2020-07-04 01:04] LABS: BUN 10 mg/dL (7-18); CREATININE 1.3 mg/dL (0.70-1.30); Calcium 9.3 mg/dL (8.5-10.1); Chloride 105 mmol/L (98-107); Estimated GFR 59.97 (mL/min/1.73m2); Glucose 174 mg/dL (74-106); Potassium 3.7 mmol/L (3.5-5.1); Sodium 141 mmol/L (136-145)
[2020-07-04 01:07] LABS: Abs Immature Grans 0.02 10^3/uL (0.0-0.06); Absolute Basophil Count 0.05 10^3/uL (0.0-0.2); Absolute Monocyte Count 0.49 10^3/uL (0.1-0.8); Absolute Neutrophil Count 3.28 10^3/uL (1.2-6.7); Basophils % 0.7; Eosinophils % 2.8; HCT 40.4 % (40.0-50.0); HGB 14.1 g/dL (13.5-17.5); Immature Grans % 0.3; Lymphocytes % 42.6; MCHC 34.9 % (32.0-36.0); MPV 8.9 fL (8.0-11.0); Neutrophils % 46.6; Nucleated RBC 0 %; Platelet Count 211 10^3/uL (130-400); RBC 4.87 10^6/uL (4.36-5.78); RDW 12.1 % (11.8-14.1); RDW-SD 36.5 fL; WBC 7.04 10^3/uL (4.4-10.8)
[2020-07-04 01:13] LABS: Troponin I < 0.05 ng/mL (<0.06)
[2020-07-04] MEDS: Normal Saline 250 ML 500 ML IV (01:16)
[2020-07-04 05:28] LABS: Troponin I < 0.05 ng/mL (<0.06)
--- NOTE | 2020-07-04 05:58 | W.PM.HP.N ---
Date of service: 07/04/20 Time of Service: 05:58 Assessment and Plan Assessment and plan (1) Chest pain: Status: Acute Assessment and plan: He has risk factor for CAD (DM2, HTN, obesity, PARTH) but the location of pain is atypical; at the proxicamal sternum. Troponin neg x2; 3rd troponin at 0830. MPI stress today if available. Qualifiers: Chest pain type: unspecified Qualified Code(s): R07.9 - Chest pain, unspecified (2) Type 2 diabetes with nephropathy: Status: Chronic Assessment and plan: On dulaglutide SQ weekly and metformin; hold ACHS glucose monitoring. Sensitive SS insulin. (3) Hypothyroidism: Status: Chronic Assessment and plan: Cont replacement tx. TSH ordered and pending. (4) Hypertension: Status: Chronic Assessment and plan: He endorses a h/o HTN but currently not on any antihypertensives. BP normotensive currently. Monitor (5) Mild renal insufficiency: Status: Chronic Assessment and plan: Creatinine 1.3. Avoid nephrotoxins, hypotension. Monitor. (6) Bipolar 1 disorder: Status: Acute Assessment and plan: Continue his home psychiatric meds: quetiapine, lamotrigine, buspar, buproprion and hydroxyzine. Mood and affect are currently appropriate. History of Present Illness History of Present Illness Chief Complaint: Chest pain Narrative: This is a 44 yo male with a h/o DM with nephropathy, hypertriglyceridemia, hypothyroidism, PARTH, HTN, Bipolar 1 disorder, hypopituitarism. He presented to the ED via ambulance after experiencing upper, central chest pain while watching videos. The pain occurred appx 1 hour prior to arrival. No radiation of the pain. He endorsed lightheadedness, nausea and shortness of breath. His sxs resolved after EMS administered a SL nitroglycerin and four 81 mg aspirin. No c/o palpitations, acid brash/reflux, abd pain, N/V, cough, F/C. He had been seen in the ED on 06/30/2020 for a similar presentation. Then, serial troponins were negative and no EKG findings consistent with ischemia were noted. An MPI stress test is scheduled for Tuesday07/07/2020. His troponin levels x 2 were negative. EKG unchanged from previous and w/o ischemic changes. His CBC and electrolytes were normal. Creatinine of 1.3 which is lower than previous values in chart. On 06/30/2020 his ALT was 65, AST normal. Review of Systems All systems reviewed & are unremarkable except as noted in HPI and below PFSH Medical History Anemia Bipolar 1 disorder Diabetes Hypertension Hypomagnesemia Hypopituitarism Hypothyroidism Metabolic syndrome Migraine headache without aura Mild renal insufficiency Obstructive sleep apnea Post concussive syndrome Postural lightheadedness Type 2 diabetes with nephropathy Vertiginous migraine Surgical History S/P cholecystectomy Social History Smoking/Tobacco Use Status: Never Smoking risk assessment performed?: Yes Alcohol Intake: never Drug use: Never Substance use type: does not use Do you feel safe at home: Yes Do you feel safe in your relationship?: Yes Meds Home Medications and Allergies Home Medications Medication Instructions Recorded Confirmed Type bupropion HCl 150 mg PO DAILY 02/23/17 07/04/20 History lamotrigine [Lamictal] 100 mg PO BID 02/23/17 07/04/20 History levothyroxine [Synthroid] 125 mcg PO DAILY 02/23/17 07/04/20 History metformin 1,000 mg PO BID 02/23/17 07/04/20 History cholecalciferol (vitamin D3) 1,000 units PO DAILY 06/16/17 07/04/20 History buspirone 15 mg tablet 15 mg PO HS tab 03/06/19 07/04/20 History buspirone 30 mg tablet 30 mg PO .am tab 03/06/19 07/04/20 History magnesium 250 mg tablet 500 mg PO DAILY tab 10/02/19 07/04/20 History rizatriptan 10 mg tablet See Rx Instructions PO .COMPLEX 04/01/20 07/04/20 Rx #10 tab dulaglutide 0.75 mg/0.5 mL 0.75 mg SUBCUT QWEEK 05/08/20 07/04/20 History subcutaneous pen injector lamotrigine 25 mg tablet 25 mg PO BID tab 05/08/20 07/04/20 History quetiapine 200 mg tablet 200 mg PO HS tab 05/08/20 07/04/20 History hydroxyzine pamoate [Vistaril] 25 mg PO TID 05/20/20 07/04/20 History Allergies Allergy/AdvReac Type Severity Reaction Status Date / Time No Known Allergies Allergy Verified 06/30/20 13:27 Exam Const General: cooperative and no acute distress Nutritional Appearance: obese Orientation: alert and oriented x3 HENMT Head: normocephalic and atraumatic Neck Neck: full ROM, supple and no JVD Resp Effort & Inspection: normal respiratory effort Auscultation: clear to auscultation bilaterally Cardio Rate: regular rate Rhythm: regular rhythm Heart Sounds: S1 normal and S2 normal GI Palpation: soft and nontender Auscultation: normal bowel sounds Neuro General: patient alert, patient oriented x3 and no focal motor deficits Extrem General: no pedal edema and no calf tenderness Psych Appearance: grossly normal Mental Status: mental status grossly normal Speech and Movement: speech and movement normal Affect: normal affect Results Labs Result diagrams: 07/04/20 00:45 07/04/20 00:45 Labs: Laboratory Results - last 24 hr 07/04/20 07/04/20 07/04/20 00:45 00:45 00:45 WBC 7.04 RBC 4.87 Hgb 14.1 Hct 40.4 MCV 83.0 MCH 29.0 MCHC 34.9 RDW 12.1 Plt Count 211 MPV 8.9 Immature Gran % 0.3 Neutrophils % 46.6 Lymphocytes % 42.6 Monocytes % 7.0 Eosinophils % 2.8 Basophils % 0.7 Nucleated RBC % 0 Absolute Neutrophils 3.28 Absolute Lymphocytes 3.00 Absolute Monocytes 0.49 Absolute Eosinophils 0.20 Absolute Basophils 0.05 Sodium 141 Potassium 3.7 Chloride 105 Carbon Dioxide 26.0 Anion Gap 10.0 BUN 10 Creatinine 1.3 Estimated GFR/1.73 m2 59.97 Glucose 174 H Calcium 9.3 Troponin I < 0.05 07/04/20 04:50 WBC RBC Hgb Hct MCV MCH MCHC RDW Plt Count MPV Immature Gran % Neutrophils % Lymphocytes % Monocytes % Eosinophils % Basophils % Nucleated RBC % Absolute Neutrophils Absolute Lymphocytes Absolute Monocytes Absolute Eosinophils Absolute Basophils Sodium Potassium Chloride Carbon Dioxide Anion Gap BUN Creatinine Estimated GFR/1.73 m2 Glucose Calcium Troponin I < 0.05 Last Vital Signs Temp 36.5 C 07/04/20 02:13 Pulse 72 07/04/20 02:13 Resp 15 07/04/20 02:13 BP 120/76 07/04/20 02:13 Pulse Ox 96 07/04/20 02:13 COVID-19 Screening Have you, or household traveled for leisure in last 14 days?: No Had IN PERSON contact w/suspected or confirmed C-19 person: No
[2020-07-04] MEDS: Levothyroxine 125 MCG TAB PO (06:01)
[2020-07-04 07:51] LABS: Hemoglobin A1C 6.2 % (<5.7)
[2020-07-04 08:01] LABS: TSH (W/Ref FT4) 0.56 uIU/mL (0.36-3.74)
[2020-07-04 08:50] LABS: Troponin I < 0.05 ng/mL (<0.06)
--- NOTE | 2020-07-04 09:15 | DI.NM_ITS ---
APPROVED REPORT Conclusion See report from 07/10/20
--- NOTE | 2020-07-04 10:30 | RT.EKG_ITS ---
APPROVED REPORT Exam: Resting ECG Patient Location: I HR:83 bpm ECG Measurements Heart Rate 83 AXIS VT 161 P 48 QRSd 112 QRS 20 QT 416 T 132 QTc 489 Conclusion Sinus rhythm...normal P axis, V-rate 60- 99 Nonspecific T abnormalities, lateral leads...T <-0.10mV, I aVL V5 V6
[2020-07-04] MEDS: Insulin Aspart 300 UNITS/3 ML PEN SC (11:57)
[2020-07-04] MEDS: Normal Saline Flush 10 ML SYR IVP (11:58)
[2020-07-04] MEDS: Cholecalciferol (Vitamin D3) 1,000 UNIT TAB 1000 UNITS PO (11:59)
[2020-07-04] MEDS: busPIRone 15 MG TAB 30 MG PO (12:00)
[2020-07-04] MEDS: buPROPion-XL 150 MG TABCR PO (12:00)
[2020-07-04] MEDS: lamoTRIgine 25 MG TAB PO (12:00)
[2020-07-04] MEDS: lamoTRIgine 100 MG TAB PO (12:00)
[2020-07-04] MEDS: hydrOXYzine PAMOATE 25 MG CAP PO (13:23)
[2020-07-04] MEDS: Acetaminophen 325 MG TAB 650 MG PO (13:23)
--- NOTE | 2020-07-04 14:40 | W.PM.DS.N ---
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 (5) Hypothyroidism: Status: Chronic (6) Hypertension: Status: Chronic (7) Mild renal insufficiency: Status: Chronic (8) Bipolar 1 disorder: Status: Chronic Discharge Plan Disposition Patient Disposition: HOME Condition: Stable Discharge Details Reason For Visit: CHEST PAIN Admit Date/Time: 07/04/20 01:31 Admit Provider: Hansel Parish Attending Provider: Hansel Parish Primary Care Provider: Derik Barksdale [facility] Course: Mr Kauffman is a 44 year old male with PMHx T2DM, post-concussive syndrome, migraines with aura (vertigo), and hypothyroidism, who was previously evaluated at [facility] ED for chest pain at rest on 06/30/2020, at which point he had ruled out for an ACS, and had an MPI scheduled for 07/07/2020. He returned to [facility] ED early this morning with complaint of chest pain at rest which was relieved by nitroglycerin. He did not have any arrhythmic events on telemetry (SR in the 80s), and yet again ruled out for an ACS with serial troponins and EKGs. His EKGs were reviewed by cardiology - there were no classic dynamic changes noted. The patient underwent the first portion of his stress test today, but it could not be fully completed in house today. He did walk in the hallway without recurrence of chest pain. It was felt that the patient would be safe for discharge home today with follow up for the 2nd part of his MPI on Tuesday (two days from now) with a prescription for prn nitroglycerin. I feel the patient would also benefit from a PPI and zofran, given his nausea, which can be associated with his post-concussive symptoms and migraines. Home Meds and New Rx's Prescriptions: New ondansetron 4 mg tablet,disintegrating 4 mg PO BID PRN PRN (Reason: nausea and vomiting) Qty: 10 RF: 0 pantoprazole [Protonix] 40 mg tablet,delayed release (DR/EC) 40 mg PO DAILY Qty: 30 RF: 0 nitroglycerin 0.4 mg tablet, sublingual 0.4 mg sublingual Q5M PRN (Reason: chest pain) Qty: 30 RF: 0 Continued buspirone 30 mg tablet 30 mg PO .am RF: 0 magnesium 250 mg tablet 500 mg PO DAILY RF: 0 rizatriptan [Maxalt] 10 mg tablet See Rx Instructions PO .COMPLEX Qty: 10 RF: 2 lamotrigine 25 mg tablet 25 mg PO BID RF: 0 Trulicity 0.75 mg/0.5 mL pen injector 0.75 mg subcut QWEEK RF: 0 bupropion HCl 150 MG tablet extended release 12 hr 150 mg PO DAILY RF: 0 metformin 1,000 MG tablet 1,000 mg PO BID RF: 0 lamotrigine [Lamictal] 100 MG tablet 100 mg PO BID RF: 0 levothyroxine [Synthroid] 112 MCG tablet 125 mcg PO DAILY RF: 0 quetiapine [Seroquel] 200 mg tablet 200 mg PO HS RF: 0 cholecalciferol (vitamin D3) 1,000 UNITS tablet 1,000 units PO DAILY RF: 0 buspirone 15 mg tablet 15 mg PO HS RF: 0 hydroxyzine pamoate [Vistaril] 25 mg capsule 25 mg PO TID RF: 0 Discharge Instructions Instructions: Nitroglycerin (By mouth), Ondansetron (By mouth), Pantoprazole (By mouth), Angina (DC), Chest Pain (DC) Additional Instructions: Keep your appointment for the 2nd part of the stress test on Tuesday. Return to the hospital with any new chest pain, shortness of breath, dizziness/nausea outside of your migraine headaches. Follow up with your PCP in 1-2 weeks and with neurology as scheduled. Referrals: Derik Barksdale [Primary Care Provider] - Activity:: Activity as Tolerated Equipment/Supplies:: No Equipment Needed Diet:: carb consistent heart healthy Discharge Orders Discharge Orders: Discharge Order (Routine); Ordered 07/04/20 Ordered By: Betty Abreu DS: Summary Time Spent with Patient providing and/or coordinating discharge services: Greater than 30 minutes Status at Discharge Functional status at discharge: independent ambulation Overall status at discharge: patient is back to baseline Mental Status: mental status grossly normal Speech and Movement: speech and movement normal Mood: congruent mood Affect: normal affect Exam Narrative Exam Narrative: General: Very pleasant middle-aged male, A&Ox3 HEENT: EOMI, MMM Heart: RRR, no m/r/g Lungs: CTAB Abdomen: soft, nontender, nondistended Extremities: no e/c/c BLE's Psych Mental Status: mental status grossly normal Speech and Movement: speech and movement normal Mood: congruent mood Affect: normal affect DS: Data Vitals/I&O Vitals and I&O: Vital Signs Temperature 36.3 C L 07/04/20 11:11 Temperature Source Tympanic 07/04/20 11:11 Pulse 100 H 07/04/20 14:23 Pulse Rhythm Regular 07/04/20 10:00 Pulse 80 07/04/20 01:36 Respiratory Rate 18 07/04/20 11:11 Respiratory Effort Non-Labored 07/04/20 10:00 Respiratory Depth Normal 07/04/20 10:00 Respiratory Pattern Normal 07/04/20 10:00 Blood Pressure 141/100 H 07/04/20 14:23 Blood Pressure Mean 87 07/04/20 01:36 Pulse Oximetry 98 07/04/20 11:11 Oxygen Delivery Method Room Air 07/04/20 11:11 Oxygen Flow Rate 0 07/04/20 11:11 Pain Level 6 07/04/20 13:24 Comment 07/04/20 14:23 Intake & Output 07/03/20 07/04/20 07/04/20 23:59 11:59 23:59 Intake Total 360 / 600 240 / 600 Output Total 800 / 800 Balance 360 / -200 -560 / -200 Weight 105.6 kg Intake: IV 260 / 260 Oral 100 / 340 240 / 340 Output: Urine 800 / 800 Other: Urine Color Yellow Urine Appearance Clear Clear Urine Odor Normal Voiding Methods Toilet Data Completed and Pending Pending studies at discharge: COVID-19 PCR Labs on day of discharge: Labs from last 24 hours 07/04/20 07/04/20 07/04/20 08:30 04:50 04:50 WBC RBC Hgb Hct MCV MCH MCHC RDW Plt Count MPV Immature Gran % Neutrophils % Lymphocytes % Monocytes % Eosinophils % Basophils % Nucleated RBC % Absolute Neutrophils Absolute Lymphocytes Absolute Monocytes Absolute Eosinophils Absolute Basophils Sodium Potassium Chloride Carbon Dioxide Anion Gap BUN Creatinine Estimated GFR/1.73 m2 Glucose Hemoglobin A1c Calcium Troponin I < 0.05 < 0.05 TSH 0.56 SARS-CoV-2 (PCR) Nasopharyn COVID-19 PCR Ref Test Perform Site 07/04/20 07/04/20 07/04/20 02:00 00:45 00:45 WBC 7.04 RBC 4.87 Hgb 14.1 Hct 40.4 MCV 83.0 MCH 29.0 MCHC 34.9 RDW 12.1 Plt Count 211 MPV 8.9 Immature Gran % 0.3 Neutrophils % 46.6 Lymphocytes % 42.6 Monocytes % 7.0 Eosinophils % 2.8 Basophils % 0.7 Nucleated RBC % 0 Absolute Neutrophils 3.28 Absolute Lymphocytes 3.00 Absolute Monocytes 0.49 Absolute Eosinophils 0.20 Absolute Basophils 0.05 Sodium Potassium Chloride Carbon Dioxide Anion Gap BUN Creatinine Estimated GFR/1.73 m2 Glucose Hemoglobin A1c 6.2 H Calcium Troponin I TSH SARS-CoV-2 (PCR) Pending Nasopharyn COVID-19 PCR Pending Ref Test Perform Site Pending 07/04/20 07/04/20 00:45 00:45 WBC RBC Hgb Hct MCV MCH MCHC RDW Plt Count MPV Immature Gran % Neutrophils % Lymphocytes % Monocytes % Eosinophils % Basophils % Nucleated RBC % Absolute Neutrophils Absolute Lymphocytes Absolute Monocytes Absolute Eosinophils Absolute Basophils Sodium 141 Potassium 3.7 Chloride 105 Carbon Dioxide 26.0 Anion Gap 10.0 BUN 10 Creatinine 1.3 Estimated GFR/1.73 m2 59.97 Glucose 174 H Hemoglobin A1c Calcium 9.3 Troponin I < 0.05 TSH SARS-CoV-2 (PCR) Nasopharyn COVID-19 PCR Ref Test Perform Site [facility] Medical History Anemia Bipolar 1 disorder Diabetes Hypertension Hypomagnesemia Hypopituitarism Hypothyroidism Metabolic syndrome Migraine headache without aura Mild renal insufficiency Obstructive sleep apnea Post concussive syndrome Postural lightheadedness Type 2 diabetes with nephropathy Vertiginous migraine Surgical History S/P cholecystectomy Social History Smoking/Tobacco Use Status: Never Smoking risk assessment performed?: Yes Alcohol Intake: never Drug use: Never Substance use type: does not use Do you feel safe at home: Yes Do you feel safe in your relationship?: Yes
--- NOTE | 2020-07-04 15:29 | W.INDIABCONS ---
Date of service: 07/04/20 Time of Service: 15:29 Diabetes Inpatient Consult DESCRIPTION/ASSESSMENT: 44 year old male admitted with chest pain with DM2 with nephropathy, obesity. Most recent A1C 6.2% indicating well controlled blood sugars. Home meds include metformin BID. Following Diabetic Diet with adequate intake. Blood sugars well controlled since admit. Met with pt today, he did not want education at this time. Not at nutritional risk at this time. INTERVENTION: Pt declines diabetic education PLAN: continue current meal plan, will monitor po intake, labs, weight Time Spent in Nutritional Counseling and Treatment: 5
--- NOTE | 2020-07-04 17:03 | PDOC.CMDIS ---
- If Service Date Differs Date of service: 07/04/20 Time of Service: 17:03 LACE Index Scoring Tool - Questions: Length of Stay (in days): 2 Acuity (Admit via E.D.?): Yes Comorbidities: Diabetes w/o Complication E.D. Visits: 4 - Answers: Total Score: 10 Risk of Readmission: High Risk Care Management Discharge Reason for Hospitalization: Chest Pain Discharge Plan: Edmundo will return home today with no additional services. He will be driven home by his family via private vehicle. He will follow up with his PCP and discharge plan of care. When CM met with him he had no questions or concerns. He is happy to be going home. Patient/Family Education Needs: Review discharge instructions regarding activity levels and medications, discussion of self care needs and goals of care.
[2020-07-05 11:46] LABS: COVID-19 RT-PCR UVMMC Result Negative (Negative)
== END 2020-07-04 16:33 | disposition home or self-care (01) ==
LOC: ER 01:38 → MS 02:21
PROVIDERS: Admitting Provider Family Medicine; Emergency Provider Emergency Medicine; PCP Family Medicine; Visit Provider Family Medicine
DX: R07.9 Chest pain, unspecified (principal); E11.21 Type 2 diabetes mellitus with diabetic nephropathy; E03.9 Hypothyroidism, unspecified; F31.9 Bipolar disorder, unspecified; G43.009 Migraine without aura, not intractable, without status migrainosus; N18.9 Chronic kidney disease, unspecified; I12.9 Hypertensive chronic kidney disease with stage 1 through stage 4 chronic kidney disease, or unspecified chronic kidney disease; D64.9 Anemia, unspecified; E83.42 Hypomagnesemia; G47.33 Obstructive sleep apnea (adult) (pediatric); E23.0 Hypopituitarism; F07.81 Postconcussional syndrome
CPT/HCPCS: 36415; 80048; 93005; 96360; 99217; 99219; 99285; U0003; U0005; 83036; 84443; 84484; 85025; 93010; 99236; G0378

== ENCOUNTER 2020-07-10 00:58 | Outpatient (CLI) | payer MEDICARE, MEDICAID, SELFPAY ==
--- NOTE | 2020-07-10 08:00 | DI.NM_ITS ---
APPROVED REPORT Exam: Exercise Treadmill Patient Location: Out-Patient Room/Bed: Stress Nurse: Rukhsana Garcia RN Ordering Provider:KEO ORTIZ, Contact Number: [phone] BMI: 32.99 Baseline Rhythm: Sinus Rhythm Comment: borderline prolonged QT interval Indications: Chest pain Medical History Medical History: Concussion, Hyperlipidemia, Type II Diabetes w/ neuropathy, hypothyroidism, PARTH, met abolic syndrome, anemia, bipolar I, hypomagnesemia Cardiac Medications: Metformin, levothyroxine, seroquel, buproprion, trulicity, magnesium Allergies: NKA Cardiac Risk Factors: Diabetes, hyperlipidemia Previous Cardiac Procedures: None Pretest Chest Pain Characteristics: None Exercise History: Sedentary Physical Disabilities: None Lung Sounds: Clear to auscultation Heart Sounds: Regular Stress Test Details Test: Exercise stress testing was performed using a Gopi protocol. Nuclear Acquisition: Rest Tc-99m/Stress Tc-99m 1 day Rest Isotope: Tc-99m Sestamibi. Dose: 12.1 Date: 07/04/2020 Injection Time: 0900 Stress Isotope: Tc-99m Sestamibi. Dose: 34.0 Date: 07/10/2020 Injection Time: 0845 HR Resting HR Supine: 84 bpm Max Heart Rate (APMHR): 176.064694 bpm Resting HR Standin bpm Target HR (85% APMHR): 149.880286 bpm Max HR Achieved: 167 bpm % of APMHR: 94.89 Recovery HR: 99 bpm HR response to stress: Normal HR response to stress BP Resting BP Supine: 138/94 mmHg Resting BP Standin/90 mmHg Max BP: 162/80 mmHg Recovery BP: 140/86 mmHg BP response to stress: Normal blood pressure response to stress. ECG Resting ECG: Sinus Rhythm Ectopy: None Comment: Borderline prolonged QT interval Stress ECG: Sinus Tachycardia ST Change: No significant ST segment changes noted Arrhythmia: Occasional PVCs Recovery ECG: Sinus Rhythm Recovery ST Change: No significant ST segment changes noted Recovery Arrhythmia: None Clinical Reason for Termination: Fatigue Stress Symptoms: General Fatigue, Dizziness Exercise duration: 9 min11 sec Highest Stage Reached: Stage 4: 4.2 mph at 16% grade. Exercise capacity: 10.47 METs Rate Pressure Product: 33272 Stress ECG Conclusion 1. The patient exercised for 9 minutes (10 METS). The patient had no symptoms suggestive of ischemia . 2. Heart rate and blood pressure augmented in a normal fashion. 3. There was no evidence of ischemia on the ECG portion of the exam. Stress Test Summary STAGE Time (mins) Speed (mph) Grade (%) HR BP SYMPTOMS METS Supine 84 138/94 Standing 92 122/90 1 3 1.7 10 114 130/90 4.6 2 6 2.5 12 140 146/84 7 3 9 3.4 14 162 10.2 1 min recovery 148 162/80 3 min recovery 106 158/82 6 min recovery 99 140/86 Pt reports having concussion 05/11, has residual dizziness from it. Dizziness was present prior to an d after test. MPI Conclusion Ejection fraction was 57% with stress. There were no wall motion abnormalities. There is no evidence of ischemia on the imaging portion exam. This represents a normal SPECT stress test. Radiologist Interpretation Radiologist agrees with Lotteries Agent's Interpretation. Radiologist Interpretation by: Leonor Allred MD Interpretation Date/Time: 07/11/2020 08:54:30
== END 2020-07-10 00:59 ==
LOC: DI 00:59
PROVIDERS: PCP Family Medicine; Visit Provider Physician Assistant
DX: R07.9 Chest pain, unspecified (principal); E78.5 Hyperlipidemia, unspecified; E11.9 Type 2 diabetes mellitus without complications; E03.9 Hypothyroidism, unspecified; D64.9 Anemia, unspecified; E88.81 Metabolic syndrome and other insulin resistance
CPT/HCPCS: 78452; 93016; 93018; 93017

== ENCOUNTER → 2020-07-28 08:40 | Outpatient (BNVA) | payer MEDICARE, MEDICAID, SELFPAY | PROVIDERS: PCP Family Medicine; Referring Provider Family Medicine; Visit Provider Nurse Practitioner Adult Health | DX: R51.9 Headache, unspecified (principal); F07.81 Postconcussional syndrome | CPT/HCPCS: 64405; 99212 ==

== ENCOUNTER → 2020-08-04 12:40 | Outpatient (BNVA) | payer MEDICARE, MEDICAID, SELFPAY | PROVIDERS: PCP Family Medicine; Referring Provider Family Medicine; Visit Provider Internal Medicine Cardiovascular Disease | DX: R07.89 Other chest pain (principal); E11.9 Type 2 diabetes mellitus without complications | CPT/HCPCS: 99202; 99213 ==

== ENCOUNTER → 2020-08-11 11:16 | Outpatient (BNVA) | payer MEDICARE, MEDICAID, SELFPAY | PROVIDERS: PCP Family Medicine; Referring Provider Family Medicine; Visit Provider Nurse Practitioner Adult Health | DX: R51.9 Headache, unspecified (principal); F07.81 Postconcussional syndrome | CPT/HCPCS: 64405 ==

== ENCOUNTER → 2020-09-11 09:15 | Outpatient (BNVA) | payer MEDICARE, MEDICAID, SELFPAY | PROVIDERS: PCP Family Medicine; Referring Provider Family Medicine; Visit Provider Nurse Practitioner Adult Health | DX: F07.81 Postconcussional syndrome (principal) | CPT/HCPCS: 64405 ==

== ENCOUNTER → 2020-09-23 09:37 | Outpatient (BNVA) | payer MEDICARE, MEDICAID, SELFPAY | PROVIDERS: PCP Family Medicine; Referring Provider Family Medicine; Visit Provider Nurse Practitioner Adult Health | DX: R51.9 Headache, unspecified (principal) | CPT/HCPCS: 64405 ==

== ENCOUNTER 2020-10-10 03:16 | Outpatient (CLI) | payer MEDICARE, MEDICAID, SELFPAY ==
[2020-10-10 10:59] LABS: Abs Immature Grans 0.03 10^3/uL (0.0-0.06); Absolute Basophil Count 0.05 10^3/uL (0.0-0.2); Absolute Eosinophil Count 0.17 10^3/uL (0.0-0.7); Absolute Lymphocyte Count 2.26 10^3/uL (1.2-3.4); Absolute Neutrophil Count 4.46 10^3/uL (1.2-6.7); Basophils % 0.7; Eosinophils % 2.3; HGB 15.4 g/dL (13.5-17.5); Immature Grans % 0.4; Lymphocytes % 30.7; MCH 28.6 pg (27.0-33.0); MCHC 34.2 % (32.0-36.0); MCV 83.5 fL (80-95); MPV 8.6 fL (8.0-11.0); Monocytes % 5.4; Neutrophils % 60.5; Nucleated RBC 0 %; Platelet Count 206 10^3/uL (130-400); RBC 5.39 10^6/uL (4.36-5.78); RDW-SD 39.1 fL; WBC 7.37 10^3/uL (4.4-10.8)
[2020-10-10 11:25] LABS: Hemoglobin A1C 5.9 % (<5.7)
[2020-10-10 12:47] LABS: ALT 59 U/L (16-63); AST 41 U/L (15-37); Albumin 4.5 g/dL (3.4-5.0); Alkaline Phosphatase 102 U/L (46-116); Anion Gap 11.6 mmol/L (3-11); BUN 15 mg/dL (7-18); Bilirubin, Total 0.5 mg/dL (0.2-1.0); CO2 29.4 mmol/L (21.0-32.0); CREATININE 1.5 mg/dL (0.70-1.30); Calcium 9.7 mg/dL (8.5-10.1); Chloride 102 mmol/L (98-107); Cholesterol 249 mg/dL (<200); Estimated GFR 50.84 (mL/min/1.73m2); Glucose 181 mg/dL (74-106); HDL Cholesterol 34 mg/dL (40-60); Magnesium 1.9 mg/dL (1.8-2.4); Potassium 4.4 mmol/L (3.5-5.1); Sodium 143 mmol/L (136-145); TSH 0.73 uIU/mL (0.36-3.74); Total Protein 7.6 g/dL (6.4-8.2); Triglyceride 907 mg/dL (<150)
[2020-10-10 14:17] LABS: C-Reactive Protein < 0.05 mg/dL (0.0-0.3)
[2020-10-10 14:55] LABS: LDL CHOLESTEROL 93 mg/dL (<100); Vitamin B12 274 pg/mL (193-986)
[2020-10-11 22:20] LABS: T3,Free 3.3 pg/mL (2.8-5.3)
[2020-10-13 05:04] LABS: Vitamin D 25 Total 19.8 ng/mL (30-100)
== END 2020-10-10 03:17 | disposition home or self-care (01) ==
LOC: LBO 03:16
PROVIDERS: PCP Family Medicine; Visit Provider Psychiatry & Neurology Psychiatry
DX: F31.73 Bipolar disorder, in partial remission, most recent episode manic (principal); Z79.899 Other long term (current) drug therapy
CPT/HCPCS: 36415; 80053; 80061; 82306; 83721; 82607; 83036; 83735; 84439; 84443; 84481; 85025; 86140

== ENCOUNTER → 2020-10-14 11:01 | Outpatient (BNVA) | payer MEDICARE, MEDICAID, SELFPAY | PROVIDERS: PCP Family Medicine; Visit Provider Nurse Practitioner Adult Health | DX: G44.1 Vascular headache, not elsewhere classified (principal); R42 Dizziness and giddiness; F07.81 Postconcussional syndrome | CPT/HCPCS: 64405; 99213 ==

== ENCOUNTER → 2020-10-28 09:53 | Outpatient (BNVA) | payer MEDICARE, MEDICAID, SELFPAY | PROVIDERS: PCP Family Medicine; Referring Provider Family Medicine; Visit Provider Nurse Practitioner Adult Health | DX: F07.81 Postconcussional syndrome (principal) | CPT/HCPCS: 64405 ==

== ENCOUNTER → 2020-10-30 08:04 | Outpatient (BNVA) | payer MEDICARE, MEDICAID, SELFPAY | PROVIDERS: PCP Family Medicine; Referring Provider Family Medicine; Visit Provider Nurse Practitioner Adult Health | DX: F07.81 Postconcussional syndrome (principal); G43.009 Migraine without aura, not intractable, without status migrainosus; Z71.89 Other specified counseling | CPT/HCPCS: 99211 ==

== ENCOUNTER → 2020-11-11 08:19 | Outpatient (BNVA) | payer MEDICARE, MEDICAID, SELFPAY | PROVIDERS: PCP Family Medicine; Referring Provider Family Medicine; Visit Provider Nurse Practitioner Adult Health | DX: F07.81 Postconcussional syndrome (principal); R51.9 Headache, unspecified | CPT/HCPCS: 64405 ==

== ENCOUNTER 2020-11-12 11:57 | Outpatient (REF) | payer MEDICARE, MEDICAID, SELFPAY ==
[2020-11-12 20:46] LABS: COMMENT (LAB VIEW ONLY) 206.16 mg/dL; Microalb ug/mg Crea 10.1 ug/mg Cr
== END 2020-11-12 11:58 | disposition home or self-care (01) ==
LOC: NCHCN 11:57
PROVIDERS: PCP Family Medicine; Visit Provider Family Medicine
DX: E11.21 Type 2 diabetes mellitus with diabetic nephropathy (principal)
CPT/HCPCS: 82043; 82570

== ENCOUNTER → 2020-12-09 13:18 | Outpatient (BNVA) | payer MEDICARE, MEDICAID, SELFPAY | PROVIDERS: PCP Family Medicine; Referring Provider Family Medicine; Visit Provider Nurse Practitioner Adult Health | DX: F07.81 Postconcussional syndrome (principal) | CPT/HCPCS: 64405; 99213 ==

== ENCOUNTER → 2021-01-06 13:23 | Outpatient (BNVA) | payer MEDICARE, MEDICAID, SELFPAY | PROVIDERS: PCP Family Medicine; Referring Provider Family Medicine; Visit Provider Nurse Practitioner Adult Health | DX: F07.81 Postconcussional syndrome (principal) | CPT/HCPCS: 99213 ==

== ENCOUNTER 2021-07-01 14:12 | Outpatient (REF) | payer MEDICARE, MEDICAID, SELFPAY ==
[2021-07-01 17:04] LABS: ALT 34 U/L (16-63); AST 20 U/L (15-37); Albumin 4.4 g/dL (3.4-5.0); Anion Gap 11.6 mmol/L (3-11); BUN 14 mg/dL (7-18); Bilirubin, Total 0.5 mg/dL (0.2-1.0); CO2 25.4 mmol/L (21.0-32.0); CREATININE 1.3 mg/dL (0.70-1.30); Calcium 9.1 mg/dL (8.5-10.1); Chloride 103 mmol/L (98-107); Cholesterol 232 mg/dL (<200); Glucose 142 mg/dL (74-106); HDL Cholesterol 32 mg/dL (40-60); Potassium 4.4 mmol/L (3.5-5.1); Sodium 140 mmol/L (136-145); Total Protein 7.4 g/dL (6.4-8.2); Triglyceride 861 mg/dL (<150)
[2021-07-01 17:35] LABS: Alkaline Phosphatase 117 U/L (46-116); LDL CHOLESTEROL 84 mg/dL (<100)
== END 2021-07-01 14:13 | disposition home or self-care (01) ==
LOC: NCHCN 14:12
PROVIDERS: PCP Family Medicine; Visit Provider Family Medicine
DX: E78.5 Hyperlipidemia, unspecified (principal); E88.81 Metabolic syndrome and other insulin resistance; E83.42 Hypomagnesemia
CPT/HCPCS: 80053; 80061; 83721; 83735

== ENCOUNTER → 2021-08-18 10:57 | Outpatient (BNVA) | payer MEDICARE, MEDICAID, SELFPAY | PROVIDERS: PCP Family Medicine; Referring Provider Family Medicine; Visit Provider Nurse Practitioner Adult Health | DX: S09.8XXS Other specified injuries of head, sequela (principal); G43.009 Migraine without aura, not intractable, without status migrainosus; R42 Dizziness and giddiness | CPT/HCPCS: 99213 ==

== ENCOUNTER 2022-05-11 16:46 | Outpatient (REF) | payer MEDICARE, MEDICAID, SELFPAY ==
[2022-05-11 17:47] LABS: HCT 42.2 % (40.0-50.0); HGB 14.6 g/dL (13.5-17.5); MCHC 34.6 % (32.0-36.0); MCV 87 fL (80-95); MPV 10.2 fL (8.0-11.0); Platelet Count 213 10^3/uL (130-400); RBC 4.87 10^6/uL (4.36-5.78); RDW 12.5 % (11.8-14.1); RDW-SD 39.5 fL; WBC 5.43 10^3/uL (4.4-10.8)
[2022-05-11 18:10] LABS: Albumin 4.3 g/dL (3.4-5.0); Alkaline Phosphatase 145 U/L (46-116); Anion Gap 8.2 mmol/L (3-11); BUN 14 mg/dL (7-18); Bilirubin, Total 0.3 mg/dL (0.2-1.0); CO2 28.8 mmol/L (21.0-32.0); CREATININE 1.4 mg/dL (0.70-1.30); Chloride 101 mmol/L (98-107); Cholesterol 271 mg/dL (<200); Estimated GFR 62.77 (mL/min/1.73m2); Glucose 215 mg/dL (74-106); HDL Cholesterol 32 mg/dL (40-60); Sodium 138 mmol/L (136-145); TSH (W/Ref FT4) 2.59 uIU/mL (0.36-3.74); Total Protein 7.2 g/dL (6.4-8.2)
[2022-05-11 18:11] LABS: Triglyceride 1350 mg/dL (<150)
[2022-05-11 19:03] LABS: ALT 19 U/L (16-63); AST 11 U/L (15-37)
[2022-05-11 19:14] LABS: LDL CHOLESTEROL 80 mg/dL (<100)
[2022-05-12 18:01] LABS: PSA, Screening 0.7 ng/mL (<=2.5)
[2022-05-21 16:16] LABS: Testosterone, Free 9.75 ng/dL (4.26-16.4); Testosterone, Total 248 ng/dL (240-950)
== END 2022-05-11 16:47 | disposition home or self-care (01) ==
LOC: NCHCN 16:46
PROVIDERS: PCP Family Medicine; Visit Provider Family Medicine
DX: E03.9 Hypothyroidism, unspecified (principal); E29.1 Testicular hypofunction; I10 Essential (primary) hypertension; E78.5 Hyperlipidemia, unspecified
CPT/HCPCS: 80053; 80061; 83721; 84153; 84402; 84403; 85027; 84443

== ENCOUNTER 2022-09-30 18:44 | Outpatient (CLI) | payer MEDICARE, MEDICAID, SELFPAY ==
--- NOTE | 2022-09-30 | DI.RAD_ITS ---
Exam(s) XR CERVICAL SPINE COMP 4-5V EXAM: XR CERVICAL SPINE COMP 4-5V CLINICAL HISTORY: RADICULOPATHY. TECHNIQUE: 2D digital imaging was performed. COMPARISON: No exams were available for comparison FINDINGS: BONES: No fracture or destructive lesion. Vertebral bodies are unremarkable. DISKS: There is mild narrowing of the C5-6 disc space. There are endplate osteophytes noted at this level. There is bilateral neural foraminal narrowing. Degenerative changes are also noted at C1-2. The remaining intervertebral disc spaces are maintained. ALIGNMENT: Cervical spinal alignment is within normal limits. The odontoid and atlantoaxial articulat ions are normal. SOFT TISSUE: Normal. The lung apices are clear. IMPRESSION: Degenerative changes at C5-6 cause bilateral neural foraminal narrowing. DATA REPOSITORY: RADIATION DOSE DELIVERED:
--- NOTE | 2022-09-30 | DI.RAD_ITS ---
Exam(s) XR SHOULDER RT COMPLETE 2+V EXAM: XR SHOULDER RT COMPLETE 2+V CLINICAL HISTORY: PAIN RIGHT SHOULDER. TECHNIQUE: 2D digital imaging was performed. Five views. COMPARISON: No exams were available for comparison FINDINGS: BONES: No acute fracture is present. No bony destructive lesion is seen. JOINTS: No dislocation present. SOFT TISSUE: Normal. IMPRESSION: Unremarkable radiographs of the right shoulder. DATA REPOSITORY: RADIATION DOSE DELIVERED:
--- NOTE | 2022-09-30 19:56 | DI.VRAD_ITS ---
PROCEDURE INFORMATION: Exam: XR Right Shoulder Exam date and time: 09/30/2022 7:10 PM Age: 46 years old Clinical indication: Pain; Shoulder; Right TECHNIQUE: Imaging protocol: Radiologic exam of the right shoulder. Views: 2 or more views. COMPARISON: CR XR CERVICAL SPINE COMP 4-5V 09/30/2022 7:04 PM FINDINGS: Bones/joints: Normal. Soft tissues: Normal. IMPRESSION: No acute findings. Dictated and Authenticated by: Govind Adamson MD. Ordering:FLORY Toledo MD
--- NOTE | 2022-09-30 19:58 | DI.VRAD_ITS ---
PROCEDURE INFORMATION: Exam: XR Cervical Spine Exam date and time: 09/30/2022 7:04 PM Age: 46 years old Clinical indication: Pain; Cervicalgia TECHNIQUE: Imaging protocol: Radiologic exam of the cervical spine. Views: 4 or 5 views. COMPARISON: CT HEAD CERVICAL SPINE WO 05/20/2020 1:29 PM FINDINGS: Bones/joints: Moderate degenerative changes noted in the atlantoaxial joint. Mild degenerative disc changes noted at the C5-C6 disc level. Moderate anterior osteophyte formation noted at C4-C5-C6. There is moderate narrowing of the bilateral C6 neural exit foramina. No acute fracture. Soft tissues: Unremarkable. IMPRESSION: Moderate degenerative changes of the cervical spine including narrowing of the bilateral C6 neural exit foramina. No acute abnormality Dictated and Authenticated by: Govind Adamson MD. Ordering:FLORY Toledo MD
== END 2022-09-30 19:04 ==
PROVIDERS: PCP Family Medicine; Visit Provider Physician Assistant Medical
DX: M54.12 Radiculopathy, cervical region (principal); M25.511 Pain in right shoulder; M48.02 Spinal stenosis, cervical region
CPT/HCPCS: 72050; 73030

== ENCOUNTER → 2022-11-25 10:24 | Outpatient (BNVA) | payer MEDICARE, MEDICAID, SELFPAY | PROVIDERS: PCP Family Medicine; Referring Provider Family Medicine; Visit Provider Physical Therapy Assistant | DX: Z12.11 Encounter for screening for malignant neoplasm of colon (principal) ==

== ENCOUNTER 2022-12-03 11:08 | Day surgery (SDC) | payer MEDICARE, MEDICAID, SELFPAY ==
--- NOTE | 2022-12-02 20:06 | PDOC.DSDIS_ITS ---
Date of service: 12/03/22 Time of Service: 12:32 Discharge Plan Disposition Patient Disposition: Home Condition: Good Discharge Details Reason For Visit: colon scope Attending Provider: Isabell Logan Primary Care Provider: Derik Barksdale [place] Meds and New Rx's Prescriptions: Continued magnesium 250 mg tablet 500 mg PO DAILY Trulicity 0.75 mg/0.5 mL pen injector 1.5 mg subcut QWEEK bupropion HCl 300 mg tablet extended release 24 hr 300 mg PO QAM buspirone 15 mg tablet 15 mg PO BID Rx Instructions: 30 mg am and 15 mg hs mecobalamin (vitamin B12) [B12 Active] 1,000 mcg tablet,chewable 1,000 mcg PO DAILY losartan 50 mg tablet 50 mg PO DAILY ammonium lactate 12 % cream 1 applic topical HS riboflavin (vitamin B2) 100 mg tablet 200 mg PO BID bupropion HCl [Wellbutrin SR] 150 mg tablet sustained-release 12 hr 150 mg PO DAILY quetiapine [Seroquel] 200 mg tablet 400 mg PO HS methylphenidate HCl 30 mg capsule, ER biphasic 30-70 20 mg PO QAM metformin 1,000 MG tablet 1,000 mg PO BID lamotrigine [Lamictal] 100 MG tablet 100 mg PO BID levothyroxine [Synthroid] 112 MCG tablet 125 mcg PO DAILY cholecalciferol (vitamin D3) 1,000 UNITS tablet 1,000 units PO DAILY Discontinued bisacodyl [Dulcolax (bisacodyl)] 5 mg tablet,delayed release (DR/EC) 5 mg PO ONCE Qty: 4 0RF Rx Instructions: Take per colonoscopy instructions provided by ordering providers office polyethylene glycol 3350 17 gram/dose powder 17 g PO ONCE Qty: 238 0RF Rx Instructions: Take per colonoscopy instructions provided by ordering providers office Discharge Instructions Additional Instructions: DSU Colonoscopy Post- Op Instructions Instructions for Everyone who is given Anest hesia: For your safety, please do the following for the next twenty-four (24) hours: *Do Not operate a motor vehicle (car, truck, motorcycle, etc.) *Do Not drink alcoholic beverages or use any recreational drugs for the first 24 hours or while taking pain medications. The medications in your body may have a reaction that can be dangerous. *Do Not make any important decisions or sign any important papers. Findings: diverticula- make sure you are moving your bowels on a regular basis and no straining to go to the bathroom Follow up: repeat in 10 yrs time. 1. No lifting over 20 pounds or strenuous activity for the first 24 hours after your procedure. After 24 hours there are no restrictions on your activity but you may feel fatigued for a few days. 2. After you arrive home you may have a light meal and return to your normal diet as you can tolerate it without feeling sick to your stomach. 3. You may have a bloated, gaseous feeling in your belly (abdomen) after a colonoscopy. Passing gas and belching will help. Walking or lying down on your left side with your knees flexed may relieve the discomfort. Call the office at [phone] (Office) or [phone] (Hospital) right away if you notice any of the following: a.Vomiting of blood or ?coffee ground stools?. b.Rectal bleeding 1Tbsp, blood clots or continuous bleeding. c.Severe belly (abdominal) pain. d.A hard distended belly (abdomen) and an inability to pass gas. 4. Please don?t expect to have a normal BM (bowel movement) for 2-3 days after your procedure. 5. If there are questions regarding the findings of your procedure, please contact your doctor 6. If you are unable to contact your doctor with a problem, contact the hospital at [phone]. 7. Continue all your regular medications unless directed otherwise. I understand the above instructions and have no questions. 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 The patient has been able to pass gas.? They are not having abdominal pain.? They have been able to tolerate liquids and a snack.? They do not have any nausea or vomiting.? They are not having any chest pain or shortness of breath.??? They are not having any rectal bleeding. Their vital signs have been stable-see nursing notes. We discussed findings during their colonoscopy, and any biopsies that were done/polyps that were removed. The patient will be sent a letter with any biopsy results, and when to repeat the colonoscopy.-see discharge instructions. Patient was given explicit instructions to follow-up regarding colonoscopy-refer to discharge instructions.? We reviewed resumption of medications. Patient verbalized understanding and discharged in stable and satisfactory condition- See nursing notes. (15) Diverticula of colon: Status: Acute
--- NOTE | 2022-12-02 20:12 | W.COLOREPORT ---
Date of service: 12/03/22 Time of Service: 12:34 Colonoscopy Report Date of procedure: 12/03/22 Pre-op diagnosis general: CRC screening Post-op diagnosis procedure note: other (diverticula- right sided ) Surgeon: Isabell Logan Anesthesia Type: General:No Airway Estimated blood loss (mL): 0 Pathology: none sent Complications: None Disposition: same day Prep: Miralax/Dulcolax Retraction Time: 9 Procedure Description: After informed consent was obtained the patient was taken to the procedure room and placed in a left decubitous position. Monitors were applied and a time out was done. The patients name, date of , procedure, allergies to medications and metal in their body was reviewed. The patient was then sedated. Once sedated and comfortable a rectal exam was done. External exam was normal. Internal exam revealed a normal sphincter tone and no palpable masses. The scope was then introduced and retrofelexed. No internal hemorrhoids were identified. The scope was then advanced to the cecum w/out difficulty. The TI and appendiceal orifice were identified. The prep was BBPS 2 in all segments for a total of 6. The scope was then slowly retracted over 9 minutes back into the rectum. There are no polyps or AVMs visualized today. He does have diverticula that are mostly confined to the right side of the colon. There is no signs of active bleeding or infection. The scope was removed and the patient was woken up and taken back to Same day surgery in stable condition. The patient tolerated the procedure well and there were no immediate complications. Follow up: The patient should follow up in 10 years unless they develop changes in bowel habits or other new gastrointestinal complaints.
--- NOTE | 2022-12-03 06:52 | ANES.PREOP_ITS ---
General Info Height: 5 ft 10 in Weight: 107.501 kg Body Mass Index (BMI): 34.0 Surgical Procedure: Operation Date: 12/03/22 11:35 Proposed Procedure Side Surgeon sara Logan, Meds Allergies and Home Medications Allergies Allergy/AdvReac Type Severity Reaction Status Date / Time No Known Allergies Allergy Verified 12/01/22 11:55 Home Medication Medication Instructions Recorded lamotrigine 100 mg tablet 100 mg PO BID 02/23/17 (Lamictal) levothyroxine 112 mcg tablet 125 mcg PO DAILY 02/23/17 (Synthroid) metformin 1,000 mg tablet 1,000 mg PO BID 02/23/17 cholecalciferol (vitamin D3) 25 1,000 units PO DAILY 06/16/17 mcg (1,000 unit) tablet magnesium 250 mg tablet 500 mg PO DAILY 10/02/19 bupropion HCl 300 mg 24 hr tablet, 300 mg PO QAM 08/25/20 extended release buspirone 15 mg tablet 15 mg PO BID 11/11/20 mecobalamin (vitamin B12) 1,000 1,000 mcg PO DAILY 12/09/20 mcg chewable tablet (B12 Active) dulaglutide 0.75 mg/0.5 mL 1.5 mg subcut QWEEK 08/18/21 subcutaneous pen injector ([facility]) ammonium lactate 12 % topical cream 1 applic topical HS 07/08/22 bupropion HCl 150 mg tablet,12 hr 150 mg PO DAILY 07/08/22 sustained-release (Wellbutrin SR) losartan 50 mg tablet 50 mg PO DAILY 07/08/22 methylphenidate HCl 30 mg biphasic 20 mg PO QAM 07/08/22 30-70 capsule,extended release quetiapine 200 mg tablet (Seroquel) 400 mg PO HS 07/08/22 riboflavin (vitamin B2) 100 mg 200 mg PO BID 07/08/22 tablet Current Visit Medications: Current Medications Generic Name Dose Route Start Last Admin Trade Name Freq PRN Reason Stop Dose Admin Hyoscyamine Sulfate 0.125 mg 12/03/22 07:58 Hyoscyamine 0.125 Mg Sl/Oral/Chew SL 01/02/23 07:57 DIRECTED PRN Ringer's Solution 1,000 mls @ 80 mls/hr 12/03/22 06:00 IV 01/01/23 23:59 INFUSION OSWALDO IV Miscellaneous Supplies 1 each 12/03/22 06:00 Iv Access IV 01/01/23 23:59 DIRECTED OSWALDO Ondansetron HCl 4 mg 12/03/22 07:58 Ondansetron 4 Mg/2 Ml Vial IVP 01/02/23 07:57 Q4H PRN PRN Nausea / Vomiting Sodium Chloride 0 ml 12/03/22 06:00 Normal Saline Flush 10 Ml Syr IV 01/01/23 23:59 PRN PRN Sodium Chloride 0 ml 12/03/22 06:00 Normal Saline 10 Ml Vial IJ 01/01/23 23:59 DIRECTED PRN Sterile Water 0 ml 12/03/22 06:00 Water,Injection,Sterile 10 Ml Vial IJ 01/01/23 23:59 DIRECTED PRN PFSH Active Problems Active Problems: Problem Status Onset Code Screening for malignant neoplasm of colon performed Z12.11 Lightheadedness R42 Chest pain R07.9 Post concussive syndrome F07.81 Migraine headache without aura G43.009 Metabolic syndrome E88.81 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 Hypothyroidism E03.9 Obstructive sleep apnea G47.33 Hypertension I10 Vertiginous migraine G43.109 Hypomagnesemia E83.42 Mild renal insufficiency N28.9 Postural lightheadedness R42 Anemia D64.9 S/P cholecystectomy Z90.49 Bipolar 1 disorder F31.9 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 Diabetes E11.9 Medical History Medical History (Updated 12/02/22 @ 22:17 by Isabell Logan DO) Dyslipidemia Heel callus Hypogonadism in male Microalbuminuria Taste sense altered Tobacco Smoking/Tobacco Use Status: Never Alcohol Alcohol Intake: never Substance Use Substance use: Never Substance use type: does not use Vital Signs and Lab Results Lab Results Blood Type / Crossmatch: No Data to Display Complete Blood Count: No Data to Display Complete Metabolic Panel: No Data to Display Liver Function Panel: No Data to Display Coagulation Panel: No Data to Display Cardiac Panel: No Data to Display Arterial Blood Gas: No Data to Display Venous Blood Gas: No Data to Display Pancreas Panel: No Data to Display Thyroid Panel: No Data to Display Infectious Disease: No Data to Display Blood Cultures: No Data to Display Toxicology Panel: No Data to Display Imaging and Studies Imaging and Studies Study information below may be from another EMR and interpreted by another pr ovider. Please see original notes in EMR for more complete details. EKG Summary: 07/13: sinus rhythm Stress Test Summary: 07/13: 10 METs, no evidence of ischemia. Anesthesia Assessment and Plan Anesthesia History Personal History: No History of Anesthesia Complications Family History: No Family History of Anesthesia Complications Implantable Cardiac Device Does patient have a Pacemaker or an ICD?: No ASA Classification ASA Score: ASA 2 Emergency Case?: No NPO Status NPO Status: NPO Clears >2 hours, Solids >8 hours Anesthesia Plan Resuscitation Status: Full Code Anesthesia Technique: General Anesthesia Airway Planned: Natural Airway Monitors Used: Standard Monitors Preoperative Comments:: 47 yo male for colo. Sig PMHx: HTN, PARTH, DM2, hypothyroid, bipolar, anemia
--- NOTE | 2022-12-03 11:22 | W.ANESPRE ---
General Info Date of Service Date Performed: 12/03/22 Height: 5 ft 10 in Weight: 107.501 kg Body Mass Index (BMI): 34.0 Surgical Procedure: Operation Date: 12/03/22 11:35 Proposed Procedure Side Surgeon sara Logan, DO Meds Allergies and Home Medications Allergies Allergy/AdvReac Type Severity Reaction Status Date / Time No Known Allergies Allergy Verified 12/01/22 11:55 Home Medication Medication Instructions Recorded lamotrigine 100 mg tablet 100 mg PO BID 02/23/17 (Lamictal) levothyroxine 112 mcg tablet 125 mcg PO DAILY 02/23/17 (Synthroid) metformin 1,000 mg tablet 1,000 mg PO BID 02/23/17 cholecalciferol (vitamin D3) 25 1,000 units PO DAILY 06/16/17 mcg (1,000 unit) tablet magnesium 250 mg tablet 500 mg PO DAILY 10/02/19 bupropion HCl 300 mg 24 hr tablet, 300 mg PO QAM 08/25/20 extended release buspirone 15 mg tablet 15 mg PO BID 11/11/20 mecobalamin (vitamin B12) 1,000 1,000 mcg PO DAILY 12/09/20 mcg chewable tablet (B12 Active) dulaglutide 0.75 mg/0.5 mL 1.5 mg subcut QWEEK 08/18/21 subcutaneous pen injector ([facility]) ammonium lactate 12 % topical cream 1 applic topical HS 07/08/22 bupropion HCl 150 mg tablet,12 hr 150 mg PO DAILY 07/08/22 sustained-release (Wellbutrin SR) losartan 50 mg tablet 50 mg PO DAILY 07/08/22 methylphenidate HCl 30 mg biphasic 20 mg PO QAM 07/08/22 30-70 capsule,extended release quetiapine 200 mg tablet (Seroquel) 400 mg PO HS 07/08/22 riboflavin (vitamin B2) 100 mg 200 mg PO BID 07/08/22 tablet Current Visit Medications: Current Medications Generic Name Dose Route Start Last Admin Trade Name Freq PRN Reason Stop Dose Admin Hyoscyamine Sulfate 0.125 mg 12/03/22 07:58 Hyoscyamine 0.125 Mg Sl/Oral/Chew SL 01/02/23 07:57 DIRECTED PRN Ringer's Solution 1,000 mls @ 80 mls/hr 12/03/22 06:00 IV 01/01/23 23:59 INFUSION [facility] IV Miscellaneous Supplies 1 each 12/03/22 06:00 Iv Access IV 01/01/23 23:59 DIRECTED OSWALDO Ondansetron HCl 4 mg 12/03/22 07:58 Ondansetron 4 Mg/2 Ml Vial IVP 01/02/23 07:57 Q4H PRN PRN Nausea / Vomiting Sodium Chloride 0 ml 12/03/22 06:00 Normal Saline Flush 10 Ml Syr IV 01/01/23 23:59 PRN PRN Sodium Chloride 0 ml 12/03/22 06:00 Normal Saline 10 Ml Vial IJ 01/01/23 23:59 DIRECTED PRN Sterile Water 0 ml 12/03/22 06:00 Water,Injection,Sterile 10 Ml Vial IJ 01/01/23 23:59 DIRECTED PRN PFSH Active Problems Active Problems: Problem Status Onset Code Screening for malignant neoplasm of colon performed Z12.11 Lightheadedness R42 Chest pain R07.9 Post concussive syndrome F07.81 Migraine headache without aura G43.009 Metabolic syndrome E88.81 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 Hypothyroidism E03.9 Obstructive sleep apnea G47.33 Hypertension I10 Vertiginous migraine G43.109 Hypomagnesemia E83.42 Mild renal insufficiency N28.9 Postural lightheadedness R42 Anemia D64.9 S/P cholecystectomy Z90.49 Bipolar 1 disorder F31.9 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 Diabetes E11.9 Medical History Medical History (Updated 12/02/22 @ 22:17 by Isabell Logan DO) Dyslipidemia Heel callus Hypogonadism in male Microalbuminuria Taste sense altered Tobacco Smoking/Tobacco Use Status: Never Alcohol Alcohol Intake: never Substance Use Substance use: Never Substance use type: does not use Vital Signs and Lab Results Point of Care Results Point of Care Results: Finger Stick Blood Glucose 166 12/03/22 11:19 Lab Results Blood Type / Crossmatch: No Data to Display Complete Blood Count: No Data to Display Complete Metabolic Panel: No Data to Display Liver Function Panel: No Data to Display Coagulation Panel: No Data to Display Cardiac Panel: No Data to Display Arterial Blood Gas: No Data to Display Venous Blood Gas: No Data to Display Pancreas Panel: No Data to Display Thyroid Panel: No Data to Display Infectious Disease: No Data to Display Blood Cultures: No Data to Display Toxicology Panel: No Data to Display Imaging and Studies Imaging and Studies Study information below may be from another EMR and interpreted by another provider. Please see original notes in EMR for more complete details. EKG Summary: 07/13: sinus rhythm Stress Test Summary: 07/13: 10 METs, no evidence of ischemia. Anesthesia Assessment and Plan Anesthesia History Personal History: No History of Anesthesia Complications Family History: No Family History of Anesthesia Complications Exercise Tolerance Exercise Tolerance: Metabolic Equivalents>4 Pertinent Negatives Pertinent Negatives: No Symptoms of GERD Cardiac & Pulmonary Exam Cardiac Exam: Normal S1/S2 Heart Sounds Pulmonary Exam: Clear Bilateral Breath Sounds Implantable Cardiac Device Does patient have a Pacemaker or an ICD?: No Airway Exam Known Difficult Airway: No Mallampati Class: 2 Mouth Opening: Normal (> 3cm) Thyromental Distance: Greater than 3 cm Neck Range of Motion: Full ROM Neck Circumference: Normal Teeth Condition: Normal Dentition ASA Classification ASA Score: ASA 2 Emergency Case?: No NPO Status NPO Status: NPO Clears >2 hours, Solids >8 hours Anesthesia Plan Resuscitation Status: Full Code Anesthesia Technique: General Anesthesia Airway Planned: Natural Airway Monitors Used: Standard Monitors
[2022-12-03 11:23] VITALS: BMI 34.0
[2022-12-03 11:26] VITALS: BP 134/97; PULSE 83; RESP 16; TEMP 36.2; O2SAT 99
[2022-12-03] MEDS: Lactated Ringers 1,000 ML 80 ML IV (11:37)
[2022-12-03 12:17] VITALS: BP 114/83; PULSE 80; RESP 16; TEMP 36.4; O2SAT 96
--- NOTE | 2022-12-03 12:40 | W.ANESPOSTOP ---
Postoperative Evaluation Date, Time and Location Date Performed: 12/03/22 Time Performed: 12:41 Patient Location: Day Surgery Unit Vital Signs Most Recent Imported Vital Signs: Most Recent Vital Signs Temp Pulse Resp BP Pulse Ox 36.4 C L 80 16 114/83 96 12/03/22 12:17 12/03/22 12:17 12/03/22 12:17 12/03/22 12:17 12/03/22 12:17 Pain Score Most Recent Pain Score: Most Recent Pain Score Pain Level 0 12/03/22 12:17 Assessment Mental Status: Awake (Alert & Oriented to Patient Baseline) Airway and Respiratory Function: Patent airway with normal (patient baseline) respiratory exam Cardiovascular Function: Hemodynamically Stable Hydration Status: Adequately Hydrated Nausea & Vomiting: No Nausea or Vomiting Pain: Pt. Denies Any Pain Peripheral Nerve Block: Patient did not receive a nerve block
[2022-12-03 12:46] VITALS: BP 134/91; PULSE 84; RESP 17; TEMP 36.6; O2SAT 98
== END 2022-12-03 13:00 | disposition home or self-care (01) ==
PROVIDERS: PCP Family Medicine; Visit Provider Surgery
PROC: 0DJD8ZZ Inspection of Lower Intestinal Tract, Via Natural or Artificial Opening Endoscopic (ICD-10-PCS; CPT 45378; principal; 2022-12-03 11:30)
DX: Z12.11 Encounter for screening for malignant neoplasm of colon (principal); K57.30 Diverticulosis of large intestine without perforation or abscess without bleeding; E11.9 Type 2 diabetes mellitus without complications; D64.9 Anemia, unspecified; G47.33 Obstructive sleep apnea (adult) (pediatric)
CPT/HCPCS: 45378

== ENCOUNTER 2023-02-15 08:14 | Outpatient (CLI) | payer MEDICARE, MEDICAID, SELFPAY ==
[2023-02-15 08:21] LABS: HCT 45.7 % (40.0-50.0); MCH 29.8 pg (27.0-33.0); MCV 85 fL (80-95); Platelet Count 219 10^3/uL (130-400); RBC 5.37 10^6/uL (4.36-5.78); RDW 12.7 % (11.8-14.1); RDW-SD 38.7 fL; WBC 7.41 10^3/uL (4.4-10.8)
[2023-02-15 08:58] LABS: Albumin 4.4 g/dL (3.4-5.0); Alkaline Phosphatase 164 U/L (46-116); Anion Gap 11.2 mmol/L (3-11); BUN 16 mg/dL (7-18); Bilirubin, Total 0.4 mg/dL (0.2-1.0); CO2 25.8 mmol/L (21.0-32.0); CREATININE 1.5 mg/dL (0.70-1.30); Calcium 9.6 mg/dL (8.5-10.1); Chloride 99 mmol/L (98-107); Estimated GFR 57.43 (mL/min/1.73m2); Glucose 247 mg/dL (74-106); Potassium 4.3 mmol/L (3.5-5.1); Sodium 136 mmol/L (136-145); Total Protein 8.2 g/dL (6.4-8.2)
[2023-02-15 10:04] LABS: ALT 26 U/L (16-63); AST < 5 U/L (15-37)
== END 2023-02-15 08:15 | disposition home or self-care (01) ==
LOC: LBO 08:14
PROVIDERS: PCP Family Medicine; Visit Provider Family Medicine
DX: N18.31 Chronic kidney disease, stage 3a (principal); Z86.2 Personal history of diseases of the blood and blood-forming organs and certain disorders involving the immune mechanism; R74.8 Abnormal levels of other serum enzymes
CPT/HCPCS: 36415; 80053; 85027

== ENCOUNTER 2023-03-01 03:48 | Emergency (ER) | payer MEDICARE, MEDICAID, SELFPAY ==
[2023-03-01] VITALS (40 sets, daily range): BP systolic 86–176; BP diastolic 43–138; PULSE 93–118; RESP 9–23; TEMP 36.8–36.9; O2SAT 88–99
--- NOTE | 2023-03-01 03:45 | RT.EKG_ITS ---
APPROVED REPORT Exam: Resting ECG Reason for Exam: Shortness of breath Patient Location: E HR:110 bpm ECG Measurements Heart Rate 110 AXIS UT 137 P 54 QRSd 92 QRS 68 QT 365 T -7 QTc 495 Conclusion Sinus tachycardia...rate> 99 sinus tachycardia, normal axis, normal intervals; s1q3t3
--- NOTE | 2023-03-01 03:45 | DI.CT_ITS ---
Exam(s) CT CHEST PE CTA EXAM: CT CHEST PE CTA CLINICAL HISTORY: post op sob, concern for PE. TECHNIQUE: Imaging Protocol: Axial CT angiography was performed with multi-slice acquisition and mu lti-planar and/or 3D reconstructions. CONTRAST MATERIAL: Intravenous: Omnipaque 350 contrast volume:100 mL COMPARISON: CT ABD PELVIS WITH CONTRAST from 12/13/2007 FINDINGS: Tracheobronchial tree: Patent where visualized. Pulmonary parenchyma: No consolidation or dominant measurable mass. No architectural distortion. Ther e is a calcified granuloma in the medial aspect of the left lower lobe. Pulmonary Arteries: No evidence of filling defect to suggest pulmonary emboli. Mediastinum and Candi: No dominant adenopathy or fluid collection. The esophagus is unremarkable. Visualized thyroid gland: Unremarkable. Pleura: No effusion or pneumothorax. Heart: The heart is not dilated. No coronary artery calcifications are seen. No pericardial effusion. Aorta: Thoracic aorta non-dilated. No evidence of dissection. Upper abdomen: Status post cholecystectomy. Soft tissues: Unremarkable. Bones: Within normal limits for the patient's age. IMPRESSION: No evidence of pulmonary embolism, thoracic aortic dissection or aneurysm. RADIATION DOSE DELIVERED: Total DLP DATA REPOSITORY: All CT scans at this facility are submitted to the National Radiology Data Registry (NRDR) Dose Index Registry (DIR) with the [employer] (ACR). RADIATION OPTIMIZATION: All CT scans at this facility use at least one of these dose optimization te chniques: automated exposure control; mA and/or kV adjustment per patient size (includes targeted exa ms where dose is matched to clinical indication); or iterative reconstruction.
[2023-03-01 04:04] LABS: Abs Immature Grans 0.08 10^3/uL (0.0-0.06); Absolute Basophil Count 0.07 10^3/uL (0.0-0.2); Absolute Eosinophil Count 0.28 10^3/uL (0.0-0.7); Absolute Lymphocyte Count 2.52 10^3/uL (1.2-3.4); Absolute Monocyte Count 0.66 10^3/uL (0.1-0.8); Absolute Neutrophil Count 4.84 10^3/uL (1.2-6.7); Basophils % 0.8; Eosinophils % 3.3; HCT 43.3 % (40.0-50.0); HGB 15.3 g/dL (13.5-17.5); Immature Grans % 0.9; Lymphocytes % 29.8; MCH 29.5 pg (27.0-33.0); MCHC 35.3 % (32.0-36.0); MCV 84 fL (80-95); Monocytes % 7.8; Neutrophils % 57.4; Platelet Count 245 10^3/uL (130-400); RBC 5.18 10^6/uL (4.36-5.78); RDW 12.2 % (11.8-14.1); WBC 8.45 10^3/uL (4.4-10.8)
--- NOTE | 2023-03-01 04:07 | ED.GENADUL_ITS ---
Discharge Plan Disposition Patient Disposition: Home Condition: Improving Discharge Details Clinical Impression: Shortness of breath Primary Care Provider: Derik Barksdale ED Provider: Hansel Sierra Home Meds and New Rx's Prescriptions: New albuterol sulfate 90 mcg/actuation HFA aerosol inhaler 2 puff inhalation Q6H PRNQty: 6.7 0RF No Action magnesium 250 mg tablet 500 mg PO DAILY Trulicity 0.75 mg/0.5 mL pen injector 1.5 mg subcut QWEEK bupropion HCl 300 mg tablet extended release 24 hr 300 mg PO QAM buspirone 15 mg tablet 15 mg PO BID Rx Instructions: 30 mg am and 15 mg hs mecobalamin (vitamin B12) [B12 Active] 1,000 mcg tablet,chewable 1,000 mcg PO DAILY losartan 50 mg tablet 50 mg PO DAILY ammonium lactate 12 % cream 1 applic topical HS riboflavin (vitamin B2) 100 mg tablet 200 mg PO BID bupropion HCl [Wellbutrin SR] 150 mg tablet sustained-release 12 hr 150 mg PO DAILY quetiapine [Seroquel] 200 mg tablet 400 mg PO HS methylphenidate HCl 30 mg capsule, ER biphasic 30-70 20 mg PO QAM metformin 1,000 MG tablet 1,000 mg PO BID lamotrigine [Lamictal] 100 MG tablet 100 mg PO BID levothyroxine [Synthroid] 112 MCG tablet 125 mcg PO DAILY cholecalciferol (vitamin D3) 1,000 UNITS tablet 1,000 units PO DAILY Discharge Instructions Instructions: Dyspnea (ED) Medical Decision Making 47-year-old male presents 1 week post cervical spinal discectomy and fusion performed at [facility], experiencing acute onset shortness of breath this evening noted to be tachycardic and tachypneic on arrival moving good air clear lungs bilaterally no peripheral edema. Patient is afebrile. High clinical suspicion for PE must also consider pneumonia versus viral illness lower suspicion for COPD or asthma given no history of such. Will obtain labs EKG troponin BNP stat CTA chest. 4: 50 EKG sinus tachycardia normal axis normal intervals patient does have S1Q3T3 on EKG, no ischemic changes appreciated, I do not appreciate a large PE or subsegmental PEs on CT awaiting official read, patient initially expressed feeling tight consider reactive airway disease in the setting of environmental stimuli versus viral illness, will trial nebs and dexamethasone, will reassess symptoms 5: 12 breathing more comfortably after nebs and steroids, improved saturation, disposition pending reassessment and CT result 6: 38 patient resting comfortably feeling better after meds. CT negative for PE or pneumonia. HPI General Date/Time Provider Initiated Documentation: 03/01/23 03:49 . HPI Narrative: 47-year-old male history of diabetes, 1 week post cervical discectomy and fusion performed in [place], presents with acute onset shortness of breath this evening Related Data Home Medications Medication Instructions Recorded Confirmed lamotrigine 100 mg tablet 100 mg PO BID 02/23/17 03/01/23 (Lamictal) levothyroxine 112 mcg tablet 125 mcg PO DAILY 02/23/17 03/01/23 (Synthroid) metformin 1,000 mg tablet 1,000 mg PO BID 02/23/17 03/01/23 cholecalciferol (vitamin D3) 25 1,000 units PO DAILY 06/16/17 03/01/23 mcg (1,000 unit) tablet magnesium 250 mg tablet 500 mg PO DAILY 10/02/19 03/01/23 bupropion HCl 300 mg 24 hr tablet, 300 mg PO QAM 08/25/20 03/01/23 extended release buspirone 15 mg tablet 15 mg PO BID 11/11/20 03/01/23 mecobalamin (vitamin B12) 1,000 1,000 mcg PO DAILY 12/09/20 03/01/23 mcg chewable tablet (B12 Active) dulaglutide 0.75 mg/0.5 mL 1.5 mg subcut QWEEK 08/18/21 03/01/23 [facility] ammonium lactate 12 % topical cream 1 applic topical HS 07/08/22 03/01/23 bupropion HCl 150 mg tablet,12 hr 150 mg PO DAILY 07/08/22 03/01/23 sustained-release (Wellbutrin SR) losartan 50 mg tablet 50 mg PO DAILY 07/08/22 03/01/23 methylphenidate HCl 30 mg biphasic 20 mg PO QAM 07/08/22 03/01/23 30-70 capsule,extended release quetiapine 200 mg tablet (Seroquel) 400 mg PO HS 07/08/22 03/01/23 riboflavin (vitamin B2) 100 mg 200 mg PO BID 07/08/22 03/01/23 tablet albuterol sulfate 90 mcg/actuation 2 puff inhalation Q6H PRN #6.7 03/01/23 aerosol inhaler grams Previous Rx's Medication Instructions Recorded albuterol sulfate 90 mcg/actuation 2 puff inhalation Q6H PRN #6.7 03/01/23 aerosol inhaler grams Allergies Allergy/AdvReac Type Severity Reaction Status Date / Time No Known Allergies Allergy Verified 03/01/23 04:19 General Stated Complaint: SOB/SuddenOnset KEITH: 2 Review of Systems Narrative: Review of Systems Constitutional: negative Eyes: negative ENT: negative Cardiovascular: negative Respiratory: Shortness of breath Gastrointestinal: negative : negative Musculoskeletal: negative Skin: negative Neurologic: negative Psych: negative PFSH All Active Problems (Updated 03/01/23 @ 06:39 by Hansel Sierra MD) Shortness of breath (Acute) Diverticula of colon (Acute) right sided Screening for malignant neoplasm of colon performed (Acute) Lightheadedness (Acute) Post concussive syndrome (Chronic) Migraine headache without aura (Chronic) Metabolic syndrome (Chronic) Type 2 diabetes with nephropathy (Chronic) Hypothyroidism (Chronic) Obstructive sleep apnea (Chronic) Hypertension (Chronic) Vertiginous migraine (Acute) Hypomagnesemia (Chronic) Mild renal insufficiency (Chronic) Postural lightheadedness (Chronic) Anemia (Chronic) Bipolar 1 disorder (Chronic) Hypopituitarism (Chronic) Diabetes (Chronic) Medical History (Updated 03/01/23 @ 06:39 by Hansel Sierra MD) Dyslipidemia Heel callus Hypogonadism in male Microalbuminuria Taste sense altered Surgical History (Updated 12/03/22 @ 14:32 by Laney Kirby) History of colonoscopy (~11/2022) Social History Smoking/Tobacco Use Status: Never Smoking risk assessment performed?: Yes Alcohol Intake: never Drug use: Never Substance use type: does not use Housing: apartment Do you feel safe at home: Yes Do you feel safe in your relationship?: Yes Exam Narrative Exam Narrative: Physical Examination General: alert, awake, cooperative, resting comfortably, no acute distress HEENT: normocephalic, atraumatic; PERRL, EOM intact, conjunctiva normal; no nasal discharge; moist mucous membranes, oral and pharyngeal mucosa normal, tolerating secretions Neck: supple, trachea midline; full ROM Chest: normal to inspection Respiratory: Tachypnea, speaking in full sentences, clear to auscultation, no wheezing, rales or rhonchi Cardiac: Tachycardia, regular rhythm, S1S2 intact, no murmurs rubs or gallops GI: abdomen soft, non-tender, non-distended; no palpable mass or hepatosplenomegaly Skin: no lesions, rashes or trauma appreciated Neuro: AAOx3, normal speech, moving all extremities Extremities: No peripheral edema Psych: Appropriate mood and affect Course Vital Signs Vital signs: Vital Signs Temperature 36.9 C 03/01/23 03:51 Pulse 114 H 03/01/23 03:51 Respiratory Rate 20 03/01/23 03:51 Blood Pressure 176/97 H 03/01/23 03:51 Pulse Oximetry 97 03/01/23 03:51 Temperature 36.9 C 03/01/23 03:51 Pulse 114 H 03/01/23 03:51 Respiratory Rate 16 03/01/23 03:58 Respiratory Effort Normal, Short of Breath 03/01/23 03:58 Respiratory Depth Normal 03/01/23 03:58 Respiratory Pattern Normal 03/01/23 03:58 Blood Pressure 176/97 H 03/01/23 03:51 Blood Pressure Position Sitting 03/01/23 03:51 Pulse Oximetry 97 03/01/23 03:51 Oxygen Delivery Method Room Air 03/01/23 03:51 Oxygen Flow Rate 0 03/01/23 03:51 Pain Level 0 03/01/23 03:51 Lab/Test Results Lab/Test Results: Laboratory Tests Range/Units 03/01/23 04:00 WBC (4.4-10.8) 10^3/uL 8.45 RBC (4.36-5.78) 10^6/uL 5.18 Hgb (13.5-17.5) g/dL 15.3 Hct (40.0-50.0) % 43.3 MCV (80-95) fL 84 MCH (27.0-33.0) pg 29.5 MCHC (32.0-36.0) % 35.3 RDW (11.8-14.1) % 12.2 Plt Count (130-400) 10^3/uL 245 MPV (8.0-11.0) fL 9.0 Immature Gran % 0.9 Neutrophils % 57.4 Lymphocytes % 29.8 Monocytes % 7.8 Eosinophils % 3.3 Basophils % 0.8 Nucleated RBC % (0.0-0.3) % 0.0 Absolute Neutrophils (1.2-6.7) 10^3/uL 4.84 Absolute Lymphocytes (1.2-3.4) 10^3/uL 2.52 Absolute Monocytes (0.1-0.8) 10^3/uL 0.66 Absolute Eosinophils (0.0-0.7) 10^3/uL 0.28 Absolute Basophils (0.0-0.2) 10^3/uL 0.07
[2023-03-01] MEDS: Normal Saline Flush 10 ML SYR IVP (04:10)
[2023-03-01] MEDS: Omnipaque 350 MG/ML 100 ML BTL IJ (04:10)
[2023-03-01] MEDS: Normal Saline - Diluent 50 ML VIAL IJ (04:11)
[2023-03-01 04:19] LABS: INR 0.9 (0.9-1.1); PTT Activated 27.9 sec (21.5-31.9)
[2023-03-01 04:25] LABS: ALT 75 U/L (16-63); Albumin 3.9 g/dL (3.4-5.0); Alkaline Phosphatase 267 U/L (46-116); Anion Gap 12.2 mmol/L (3-11); BUN 16 mg/dL (7-18); Bilirubin, Total 0.4 mg/dL (0.2-1.0); CO2 25.8 mmol/L (21.0-32.0); CREATININE 1.5 mg/dL (0.70-1.30); Chloride 98 mmol/L (98-107); Estimated GFR 57.43 (mL/min/1.73m2); Glucose 304 mg/dL (74-106); Potassium 3.8 mmol/L (3.5-5.1); Sodium 136 mmol/L (136-145); Total Protein 7.9 g/dL (6.4-8.2); Troponin I < 50 ng/L (<or=60)
[2023-03-01 04:29] LABS: TSH (W/Ref FT4) 2.37 uIU/mL (0.36-3.74)
[2023-03-01 04:40] LABS: AST 22 U/L (15-37)
[2023-03-01 04:42] LABS: NT-proBNP 73 pg/mL (<300)
[2023-03-01] MEDS: Albuterol/Ipratropium 3 ML UPD VIAL UPD (04:56)
[2023-03-01] MEDS: Dexamethasone 10 MG/ML VIAL IVP (04:56)
[2023-03-01 05:07] LABS: COVID-19 PCR Negative (Negative); Influenza A PCR Negative (Negative); Influenza B PCR Negative (Negative); RSV PCR Negative (Negative)
[2023-03-01 05:14] LABS: Source Nasopharynx
--- NOTE | 2023-03-01 05:48 | NUR.NOTE ---
BP appearing low, made adjustment to cuff and BP returned to normal, FPJ
--- NOTE | 2023-03-01 06:36 | DI.[facility]_ITS ---
PROCEDURE INFORMATION: Exam: CTA Chest With Contrast Exam date and time: 03/01/2023 4:11 AM Age: 47 years old Clinical indication: Shortness of breath; Patient HX: Post op SOB. S/P c-spine surgery; Additional info: Concern for pe TECHNIQUE: Imaging protocol: Computed tomographic angiography of the chest with contrast. Exam focused on the arteries. 3D rendering (Not supervised by radiologist): MIP and/or 3D reconstructed images were created by the technologist. Radiation optimization: All CT scans at this facility use at least one of these dose optimization techniques: automated exposure control; mA and/or kV adjustment per patient size (includes targeted exams where dose is matched to clinical indication); or iterative reconstruction. Contrast material: OMNIPAQUE 350; Contrast volume: 100 ml; Contrast route: INTRAVENOUS (IV); COMPARISON: CR XR PORTABLE CHEST AP 06/30/2020 1:53 PM FINDINGS: Pulmonary arteries: There are no filling defects in the pulmonary arteries to suggest pulmonary emboli. Aorta: There is no thoracic aortic aneurysm or dissection. Lungs: There is no evidence of focal pulmonary consolidation. No lung masses are seen. Pleural spaces: Unremarkable. No pneumothorax. No pleural effusion. Heart: The heart is normal in size. There are no pericardial fluid collections. Lymph nodes: No enlarged mediastinal or hilar lymph nodes are seen. Gallbladder and bile ducts: There has been a cholecystectomy. Bones/joints: No acute fracture is seen. Soft tissues: Unremarkable. IMPRESSION: 1. No evidence of pulmonary embolus or thoracic aortic aneurysm. 2. No acute findings. Dictated and Authenticated by: Antonio Calderon MD. Ordering:TALISHA Hamm MD
== END 2023-03-01 06:55 | disposition home or self-care (01) ==
PROVIDERS: Emergency Provider Emergency Medicine; PCP Family Medicine
DX: R06.02 Shortness of breath (principal); R05.9 Cough, unspecified; R22.2 Localized swelling, mass and lump, trunk; E11.21 Type 2 diabetes mellitus with diabetic nephropathy; I10 Essential (primary) hypertension; Z79.4 Long term (current) use of insulin; Z98.1 Arthrodesis status
CPT/HCPCS: 71275; 80053; 87637; 93005; 99285; 83880; 84443; 84484; 85025; 85610; 85730; 93010; J1100; J3490; J7620

== ENCOUNTER 2023-08-09 21:02 | Outpatient (REF) | payer MEDICARE, SELFPAY ==
[2023-08-09 21:24] LABS: ALT 32 U/L (16-63); Albumin 4.9 g/dL (3.4-5.0); Alkaline Phosphatase 130 U/L (46-116); Anion Gap 14.8 mmol/L (3-11); BUN 12 mg/dL (7-18); Bilirubin, Total 0.5 mg/dL (0.2-1.0); CO2 26.2 mmol/L (21.0-32.0); CREATININE 1.3 mg/dL (0.70-1.30); Calcium 9.1 mg/dL (8.5-10.1); Chloride 104 mmol/L (98-107); Estimated GFR 68.19 (mL/min/1.73m2); Glucose 144 mg/dL (74-106); Sodium 145 mmol/L (136-145)
[2023-08-09 21:38] LABS: AST 11 U/L (15-37)
== END 2023-08-09 21:03 | disposition home or self-care (01) ==
LOC: LBN 21:02
PROVIDERS: PCP Family Medicine; Visit Provider Nurse Practitioner Family
DX: E11.9 Type 2 diabetes mellitus without complications (principal)
CPT/HCPCS: 80053; 83036

== ENCOUNTER 2023-11-02 11:19 | Outpatient (REF) | payer MEDICARE, SELFPAY ==
[2023-11-02 14:51] LABS: Abs Immature Grans 0.01 10^3/uL (0.0-0.06); Absolute Basophil Count 0.04 10^3/uL (0.0-0.2); Absolute Eosinophil Count 0.12 10^3/uL (0.0-0.7); Absolute Lymphocyte Count 2.24 10^3/uL (1.2-3.4); Absolute Monocyte Count 0.46 10^3/uL (0.1-0.8); Absolute Neutrophil Count 4.16 10^3/uL (1.2-6.7); Basophils % 0.6 %; Eosinophils % 1.7 %; HCT 43.6 % (40.0-50.0); HGB 14.7 g/dL (13.5-17.5); Immature Grans % 0.1 %; Lymphocytes % 31.9 %; MCHC 33.7 % (32.0-36.0); MCV 86 fL (80-95); MPV 9.5 fL (8.0-11.0); Monocytes % 6.5 %; Neutrophils % 59.2 %; Platelet Count 232 10^3/uL (130-400); RBC 5.07 10^6/uL (4.36-5.78); RDW 12.7 % (11.8-14.1); RDW-SD 39.3 fL; WBC 7.03 10^3/uL (4.4-10.8)
[2023-11-02 15:27] LABS: TSH (W/Ref FT4) 0.29 uIU/mL (0.36-3.74)
[2023-11-02 16:31] LABS: FREE T4 1.23 ng/dL (0.76-1.46)
== END 2023-11-02 11:20 | disposition home or self-care (01) ==
LOC: NCHCN 11:19
PROVIDERS: PCP Family Medicine; Visit Provider Student in an Organized Health Care Education/Training Program
DX: F31.9 Bipolar disorder, unspecified (principal); E29.1 Testicular hypofunction
CPT/HCPCS: 84439; 84443; 85025

== ENCOUNTER 2024-01-02 13:49 | Outpatient (REF) | payer MEDICARE, SELFPAY ==
[2024-01-02 16:07] LABS: Abs Immature Grans 0.07 10^3/uL (0.0-0.06); Absolute Basophil Count 0.07 10^3/uL (0.0-0.2); Absolute Eosinophil Count 0.11 10^3/uL (0.0-0.7); Absolute Lymphocyte Count 2.36 10^3/uL (1.2-3.4); Absolute Monocyte Count 0.53 10^3/uL (0.1-0.8); Absolute Neutrophil Count 5.43 10^3/uL (1.2-6.7); Basophils % 0.8 %; Eosinophils % 1.3 %; HGB 15.2 g/dL (13.5-17.5); Immature Grans % 0.8 %; Lymphocytes % 27.5 %; MCH 29.9 pg (27.0-33.0); MCHC 35.3 % (32.0-36.0); MCV 85 fL (80-95); Monocytes % 6.2 %; Neutrophils % 63.4 %; Platelet Count 242 10^3/uL (130-400); RBC 5.09 10^6/uL (4.36-5.78); RDW 12.7 % (11.8-14.1); RDW-SD 38.9 fL; WBC 8.57 10^3/uL (4.4-10.8)
[2024-01-02 16:35] LABS: COMMENT (LAB VIEW ONLY) 165.98 mg/dL; Microalb ug/mg Crea 20.4 ug/mg Cr
[2024-01-02 17:39] LABS: Albumin 4.1 g/dL (3.4-5.0); Alkaline Phosphatase 171 U/L (46-116); Anion Gap 12.1 mmol/L (3-11); BUN 18 mg/dL (7-18); Bilirubin, Total 0.61 mg/dL (0.2-1.0); CO2 25.9 mmol/L (21.0-32.0); CREATININE 1.4 mg/dL (0.70-1.30); Calcium 8.8 mg/dL (8.5-10.1); Chloride 101 mmol/L (98-107); Glucose 200 mg/dL (74-106); Potassium 4.1 mmol/L (3.5-5.1); Sodium 139 mmol/L (136-145)
[2024-01-02 18:03] LABS: AST 16 U/L (15-37)
[2024-01-02 18:04] LABS: ALT 28 U/L (16-63); Total Protein 7.3 g/dL (6.4-8.2)
== END 2024-01-02 13:50 | disposition home or self-care (01) ==
LOC: NCHCN 13:49
PROVIDERS: PCP Family Medicine; Visit Provider Student in an Organized Health Care Education/Training Program
DX: E11.21 Type 2 diabetes mellitus with diabetic nephropathy (principal); E29.1 Testicular hypofunction
CPT/HCPCS: 80053; 82043; 82570; 85025

== ENCOUNTER → 2024-11-06 13:06 | Outpatient (BNVA) | payer MEDICARE, SELFPAY | PROVIDERS: PCP Student in an Organized Health Care Education/Training Program; Referring Provider Student in an Organized Health Care Education/Training Program; Visit Provider Podiatrist | DX: G62.9 Polyneuropathy, unspecified (principal); B35.1 Tinea unguium; L60.3 Nail dystrophy; E08.65 Diabetes mellitus due to underlying condition with hyperglycemia; Z79.4 Long term (current) use of insulin; N18.9 Chronic kidney disease, unspecified; Z79.84 Long term (current) use of oral hypoglycemic drugs | CPT/HCPCS: 99214 ==

== ENCOUNTER 2024-12-29 12:42 | Outpatient (CLI) | payer MEDICARE, SELFPAY ==
--- NOTE | 2024-12-29 12:15 | DI.RAD_ITS ---
Exam(s) XR HIP RT COMPLETE AP PELVIS EXAM: XR HIP RT COMPLETE AP PELVIS CLINICAL HISTORY: nontraumatic pain. TECHNIQUE: 2D digital imaging was performed of the right hip. Two images were obtained. AP pelvis and lateral right hip views were obtained. COMPARISON: CR ABD FLAT UPRIGHT PA CHEST from 12/02/2007 FINDINGS: BONES: No acute fracture is present. No bony destructive lesion is seen. JOINTS: No dislocation present. There is mild protuberance at the junction of the head and neck laterally which can be seen with LAWRENCE. The right hip joint is well maintained. The sacroiliac joints and symphysis pubis are unremarkable. SOFT TISSUE: Normal. IMPRESSION: 1. No acute fracture or dislocation. 2. The preliminary [facility] report was reviewed. DATA REPOSITORY: RADIATION DOSE DELIVERED:
--- NOTE | 2024-12-29 13:15 | DI.VRAD_ITS ---
PROCEDURE INFORMATION: Exam: XR Right Hip Exam date and time: 12/29/2024 12:12 PM Age: 49 years old Clinical indication: Right hip; Non traumayic hip pain TECHNIQUE: Imaging protocol: Radiologic exam of the right hip. Views: 2 or 3 views hip with pelvis when performed. COMPARISON: No relevant prior studies available. FINDINGS: Bones/joints: No significant degenerative changes. No acute fracture. Soft tissues: Unremarkable. IMPRESSION: No acute findings. Dictated and Authenticated by: Armin Felton MD. Orderin Jeff Arora MD
== END 2024-12-29 13:02 ==
LOC: DI 01-17 12:42
PROVIDERS: PCP Student in an Organized Health Care Education/Training Program; Visit Provider Nurse Practitioner Acute Care
DX: M25.551 Pain in right hip (principal)
CPT/HCPCS: 73502

== ENCOUNTER 2025-02-13 16:08 | Outpatient (CLI) | payer MEDICARE, SELFPAY ==
--- NOTE | 2025-02-13 16:00 | RT.EKG_ITS ---
APPROVED REPORT Exam: Resting ECG Reason for Exam: chest discomfort Patient Location: O HR:74 bpm ECG Measurements Heart Rate 74 AXIS ID [id number] P [id number] QRSd 86 QRS 52 QT 552 T 86 QTc 613 Conclusion Excessive artifact Sinus rhythm
== END 2025-02-13 16:09 | disposition home or self-care (01) ==
LOC: DI.CM 16:08
PROVIDERS: PCP Student in an Organized Health Care Education/Training Program; Visit Provider Physician Assistant
DX: R07.89 Other chest pain (principal)
CPT/HCPCS: 93010

== ENCOUNTER 2025-02-13 16:53 | Observation (INO) | payer MEDICARE, SELFPAY ==
[2025-02-13] VITALS (31 sets, daily range): BP systolic 129–158; BP diastolic 74–97; PULSE 67–82; RESP 11–24; TEMP 36.6–36.9; O2SAT 94–100
--- NOTE | 2025-02-13 16:30 | RT.EKG_ITS ---
APPROVED REPORT Exam: Resting ECG Reason for Exam: dizziness Patient Location: E HR:77 bpm ECG Measurements Heart Rate 77 AXIS TX 167 P 4 QRSd 101 QRS 11 QT 406 T 55 QTc 459 Conclusion Sinus rhythm...normal P axis, V-rate 60- 99 No Occlusion [place]
--- NOTE | 2025-02-13 17:01 | W.ED.GENAD ---
Discharge Plan Disposition Patient Disposition: Admit to [facility] Discharge Details Clinical Impression: Chest pressure Admit Date/Time: 02/13/25 19:34 Admit Provider: Sukhi Ceja Attending Provider: Sukhi Ceja Primary Care Provider: Cb Rain ED Provider: Derik Rust HPI General Date/Time Provider Initiated Documentation: 02/13/25 17:00. HPI Narrative: MDM This is an overall well-appearing normothermic and not tachycardic 49-year-old male with resolved chest pain and had risk factors for ACS for which patient will undergo troponin testing. ECG showing sinus rhythm at a rate of 77 with interventricular conduction delay QRS 101 ms. Normal axis. IL and QTc within normal limits. No acute injury pattern. Left chest wall T wave inversions. Compared to prior dated earlier this evening sinus rhythm has replaced rate controlled atrial flutter with 3-1 conduction. No tearing quality to suggest aortic dissection and no pain in back at present. No recent cough nor positional component to suggest pericarditis. No abnormal breath sounds nor fevers to suggest pneumonia. No pain out of proportion to suggest necrotizing soft tissue infection. Patient has not recently been vomiting so I am not suspicious for esophageal rupture. He is not hypotensive nor a dialysis patient making my suspicion of the low for tamponade. No rash to chest to suggest zoster. I considered PE however the patient is PERC negative so I did not send a D-dimer. Patient is high risk from a heart score perspective before his troponin. Anticipate hospitalization. Patient has received aspirin. Will heparinize if patient is found to have myocardial injury. 6:25 PM Initial troponin reassuring. Comprehensive metabolic panel with CKD no superimposed MAEVE. No acute electrolyte abnormalities. No LFT abnormalities. Normal magnesium. CBC lacks anemia thrombocytopenia and leukocytosis. Chest x-ray with no acute cardiopulmonary process. 7:24 PM repeat reassuring troponin. Given high risk heart score we will plan for hospitalization. 7:34 PM I was in touch with Dr. Ceja from the hospitalist team who graciously agreed to accept the patient for hospitalization. HEART SCORE Chest pain Diagnostic Protocol: [- History/Physical/Gestalt: Moderately Suspicious (+1)] [- EKG: Nonspecific repolarization (+1)] [- AGE: 45-65 (+1)] [- RISK FACTORS: 3 or more risk factors and/or known CAD (+2)] [-TROPONIN: <= normal limit (0)] - TOTAL SCORE: 5 - Risk Factors: DM, current or recent smoker, HTN, HLD, family hx of CAD, obesity - INTERPRETATION: With a total score of 3 or less, risk of major cardiac event within six weeks 1.7%, likely lower with two negative troponins. Chronic conditions affecting the care of the patient: Hypertension hyperlipidemia diabetes History obtained from an outside historian: N/A External record review: N/A Diagnostic interpretations performed by me: Per my independent interpretation chest x-ray shows: Per my independent interpretation EKG shows: Please see above ]Medications: None Social determinants of health affecting disposition: N/A HPI This is a male with a history of high blood pressure and diabetes presenting with dizziness and chest pain. The patient began experiencing lightheadedness on 02/12/2025, which escalated to dizziness on the morning of 02/13/2025. In the afternoon, he felt extremely lightheaded, prompting him to seek medical attention at a walk-in clinic. The clinic staff suspected an issue with his heart rhythm, possibly atrial fibrillation or flutter, and advised him to visit the emergency department. He describes his lightheadedness as a sensation of impending fainting rather than vertigo. The patient experienced chest pain approximately 20 minutes prior to his arrival at the clinic on 02/13/2025, followed by a sensation of pressure. The onset of his chest pain was sudden and occurred while he was at rest, lasting for about 20 minutes. The pain was located centrally in his chest and was accompanied by back pressure. He took aspirin en route to the clinic and is not currently experiencing any chest pain. The patient reports no abdominal pain, vomiting, recent fevers, or cough. He has no history of blood clots in his legs or lungs. He has no history of heart attacks. The patient does not smoke cigarettes, consume alcohol, or use drugs other than prescriptions. He has a family history of heart attack; his father had a heart attack at the age of 60. He has not had his cholesterol checked in a long time and is supposed to be on a cholesterol medication. Exam General: Well-appearing in no acute distress speaking in complete sentences. Head: Normocephalic, atraumatic. Eye: Extraocular eye movements intact. No conjunctival injection. No scleral icterus. Ear, nose, mouth, throat: Grossly normal inspection. Normal voice, handling secretions normally. Neck: Trachea midline. Cardiovascular: Well-perfused distal extremities. Regular rate and rhythm Respiratory: Nonlabored respiration. Clear lungs bilaterally. Gastrointestinal: Nondistended abdomen. Soft nontender. Musculoskeletal: No edema. Moving all 4 extremities spontaneously. Skin: Normal for age and race, grossly normal temperature and turgor. No acute rash. Neurologic: Alert and appropriate, no apparent acute deficits. Psychiatric: Mood and manner are appropriate. Grooming and personal hygiene are appropriate. Related Data Home Medications ?Medication ?Instructions ?Recorded ?Confirmed lamotrigine 100 mg tablet 100 mg PO BID 02/23/17 02/13/25 (Lamictal) levothyroxine 112 mcg tablet 125 mcg PO DAILY 02/23/17 02/13/25 (Synthroid) cholecalciferol (vitamin D3) 25 1,000 units PO DAILY 06/16/17 02/13/25 mcg (1,000 unit) tablet buspirone 15 mg tablet 15 mg PO BID 11/11/20 02/13/25 mecobalamin (vitamin B12) 1,000 1,000 mcg PO DAILY 12/09/20 02/13/25 mcg chewable tablet (B12 Active) riboflavin (vitamin B2) 100 mg 200 mg PO BID 07/08/22 02/13/25 tablet albuterol sulfate 90 mcg/actuation 2 puff inhalation Q6H PRN #6.7 03/01/23 02/13/25 aerosol inhaler grams valsartan 160 1 tab PO DAILY 10/22/24 02/13/25 mg-hydrochlorothiazide 12.5 mg tablet insulin glargine 100 unit/mL 54 unit subcut DAILY 11/06/24 02/13/25 subcutaneous solution (Lantus U-100 Insulin) metformin 1,000 mg tablet See Rx Instructions PO BID 11/06/24 02/13/25 aripiprazole 15 mg tablet See Rx Instructions PO DAILY 12/29/24 02/13/25 aripiprazole 20 mg tablet 20 mg PO HS 02/13/25 02/13/25 atorvastatin 40 mg tablet 40 mg PO DAILY 02/13/25 02/13/25 buspirone 30 mg tablet 30 mg PO BID 02/13/25 02/13/25 lamotrigine 150 mg tablet 150 mg PO BID 02/13/25 02/13/25 levothyroxine 125 mcg tablet 125 mcg PO DAILY 02/13/25 02/13/25 methylphenidate HCl 10 mg tablet See Rx Instructions PO DAILY 02/13/25 02/13/25 methylphenidate HCl 30 mg biphasic 15 mg PO QAM 02/13/25 02/13/25 30-70 capsule,extended release Previous Rx's ?Medication ?Instructions ?Recorded albuterol sulfate 90 mcg/actuation 2 puff inhalation Q6H PRN #6.7 03/01/23 aerosol inhaler grams Allergies Allergy/AdvReac Type Severity Reaction Status Date / Time No Known Allergies Allergy Verified 02/13/25 17:03 General Stated Complaint: Chest Pain KEITH: 3 Course Vital Signs Vital signs: Vital Signs Temperature 36.9 C 02/13/25 16:57 Pulse 80 02/13/25 16:57 Respiratory Rate 18 02/13/25 16:57 Blood Pressure 139/74 02/13/25 16:57 Pulse Oximetry 98 02/13/25 16:57 Temperature 36.9 C 02/13/25 16:57 Pulse 80 02/13/25 16:57 Respiratory Rate 18 02/13/25 16:57 Blood Pressure 139/74 02/13/25 16:57 Pulse Oximetry 98 02/13/25 16:57 Pain Level 0 02/13/25 16:57 PFSH All Active Problems (Updated 02/13/25 @ 19:28 by Derik Rust MD) Chest pressure (Acute) Acute right hip pain (Acute) Dystrophia unguium (Acute) Onychomycosis (Acute) Diabetes mellitus due to underlying condition, uncontrolled, with hyperglycemia, with long-term current use of insulin (Acute) CKD (chronic kidney disease) (Chronic) Heel callus (Acute) Diverticula of colon (Acute) right sided Screening for malignant neoplasm of colon performed (Acute) Lightheadedness (Acute) Post concussive syndrome (Chronic) Migraine headache without aura (Chronic) Metabolic syndrome (Chronic) Type 2 diabetes with nephropathy (Chronic) Hypothyroidism (Chronic) Obstructive sleep apnea (Chronic) Hypertension (Chronic) Vertiginous migraine (Acute) Hypomagnesemia (Chronic) Mild renal insufficiency (Chronic) Postural lightheadedness (Chronic) Anemia (Chronic) Bipolar 1 disorder (Chronic) Hypopituitarism (Chronic) Diabetes (Chronic) Medical History Dyslipidemia Hypogonadism in male Microalbuminuria Taste sense altered Surgical History History of colonoscopy (~11/2022) Social History Smoking/Tobacco Use Status: Never Smoking risk assessment performed?: Yes Alcohol Intake: never Drug use: Never Substance use type: does not use Housing: apartment Do you feel safe at home: Yes Do you feel safe in your relationship?: Yes
--- NOTE | 2025-02-13 17:12 | DI.RAD_ITS ---
Exam(s) XR CHEST 2V PA LATERAL EXAM: XR CHEST 2V PA LATERAL CLINICAL HISTORY: Chest pain TECHNIQUE: 2D digital imaging was performed. Two views. COMPARISON: No exams were available for comparison FINDINGS: HEART: Normal size. Aorta: Not dilated. PULMONARY VASCULATURE: Normal. MEDIASTINUM: Unremarkable. LUNGS: Clear. PLEURAL SPACE: No pleural effusion or pneumothorax. BONE:Fixation plate in lower cervical spine. No thoracic compression fractures. SOFT TISSUES: Unremarkable. IMPRESSION: No acute abnormality. DATA REPOSITORY: RADIATION DOSE DELIVERED:
[2025-02-13 17:19] LABS: Abs Immature Grans 0.03 10^3/uL (0.0-0.06); HCT 39.6 % (40.0-50.0); HGB 13.7 g/dL (13.5-17.5); Immature Grans % 0.4 %; MCH 28.6 pg (27.0-33.0); MCHC 34.6 % (32.0-36.0); MCV 83 fL (80-95); MPV 9.5 fL (8.0-11.0); Platelet Count 165 10^3/uL (130-400); RBC 4.79 10^6/uL (4.36-5.78); RDW 12.5 % (11.8-14.1); RDW-SD 37.4 fL; WBC 8.37 10^3/uL (4.4-10.8)
[2025-02-13 17:50] LABS: ALT 28 U/L (16-63); AST 20 U/L (15-37); Albumin 4.4 g/dL (3.4-5.0); Alkaline Phosphatase 102 U/L (46-116); Anion Gap 7.3 mmol/L (3-11); BUN 19 mg/dL (7-18); Bilirubin, Total 0.5 mg/dL (0.2-1.0); CO2 31.7 mmol/L (21.0-32.0); Calcium 9.6 mg/dL (8.5-10.1); Chloride 100 mmol/L (98-107); Estimated GFR 52.49 (mL/min/1.73m2); Glucose 174 mg/dL (74-106); Magnesium 1.9 mg/dL (1.8-2.4); Potassium 4.0 mmol/L (3.5-5.1); Sodium 139 mmol/L (136-145); Total Protein 7.5 g/dL (6.4-8.2); Troponin I 5 ng/L (<or=76)
[2025-02-13 19:00] LABS: Troponin I 5 ng/L (<or=76)
--- NOTE | 2025-02-13 19:35 | W.PM.HP.N ---
Date of service: 02/13/25 Time of Service: 19:35 Assessment and Plan Assessment and plan (1) Chest pressure: Status: Acute Assessment and plan: - Patient presented with chest pressure, substernal occurring at rest resolving prior to arrival - EKG without changes - Troponins negative - Patient reportedly had stress test in the past though we do not have records - Patient's heart score is a 4 (moderately suspicious story,, age 45-64, greater than 3 risk factors) - Will monitor patient on telemetry overnight - Obtain nuclear stress test tomorrow morning 02/14/2025 (2) Diabetes mellitus due to underlying condition, uncontrolled, with hyperglycemia, with long-term current use of insulin: Status: Acute Assessment and plan: - Continue home insulin regimen - Carb consistent diet (3) CKD (chronic kidney disease): Status: Chronic Assessment and plan: - Creatinine at baseline, 1.6 (4) Hypertension: Status: Chronic Assessment and plan: - Continue home valsartan hydrochlorothiazide (5) Hypothyroidism: Status: Chronic Assessment and plan: - Continue home Synthroid History of Present Illness History of Present Illness Chief Complaint: chest pain Narrative: 49-year-old male with a past medical history of asthma, IDDM, hypertension, hypothyroidism who presents to the emergency department chest pain. Patient states that beginning 02/12 2025 he began to experience dizziness that got worse as of the morning of 02/13/2025 prompting him to go to urgent care. However, shortly after arriving at urgent care he developed substernal pressure-like chest pain that lasted 20 minutes with associated with radiation to the back. He states he took aspirin on his way to the clinic and then he was no longer experiencing chest pain upon arrival to the emergency department. He denies any headache, lightheadedness, dizziness, nausea or vomiting or diarrhea. In the emergency department patient was noted to have a normal physical exam, EKG without any signs of ACS, and 3 troponins. However, given that the patient had a heart score of 4 emergency room provider paged hospitalist for admission for patient requiring nuclear stress test. Review of Systems All systems reviewed & are unremarkable except as noted in HPI and below PFSH All Active Problems (Updated 02/13/25 @ 19:28 by Derik Rust MD) Chest pressure (Acute) Acute right hip pain (Acute) Dystrophia unguium (Acute) Onychomycosis (Acute) Diabetes mellitus due to underlying condition, uncontrolled, with hyperglycemia, with long-term current use of insulin (Acute) CKD (chronic kidney disease) (Chronic) Heel callus (Acute) Diverticula of colon (Acute) right sided Screening for malignant neoplasm of colon performed (Acute) Lightheadedness (Acute) Post concussive syndrome (Chronic) Migraine headache without aura (Chronic) Metabolic syndrome (Chronic) Type 2 diabetes with nephropathy (Chronic) Hypothyroidism (Chronic) Obstructive sleep apnea (Chronic) Hypertension (Chronic) Vertiginous migraine (Acute) Hypomagnesemia (Chronic) Mild renal insufficiency (Chronic) Postural lightheadedness (Chronic) Anemia (Chronic) Bipolar 1 disorder (Chronic) Hypopituitarism (Chronic) Diabetes (Chronic) Medical History Dyslipidemia Hypogonadism in male Microalbuminuria Taste sense altered Surgical History History of colonoscopy (~11/2022) Social History Smoking/Tobacco Use Status: Never Smoking risk assessment performed?: Yes Alcohol Intake: never Drug use: Never Substance use type: does not use Housing: apartment Do you feel safe at home: Yes Do you feel safe in your relationship?: Yes Meds Allergies and Home Medications Allergies Allergy/AdvReac Type Severity Reaction Status Date / Time No Known Allergies Allergy Verified 02/13/25 17:03 Home Medications ?Medication ?Instructions ?Recorded ?Confirmed ?Type lamotrigine 100 mg tablet 100 mg PO BID 02/23/17 02/13/25 History (Lamictal) levothyroxine 112 mcg tablet 125 mcg PO DAILY 02/23/17 02/13/25 History (Synthroid) cholecalciferol (vitamin D3) 25 1,000 units PO DAILY 06/16/17 02/13/25 History mcg (1,000 unit) tablet buspirone 15 mg tablet 15 mg PO BID 11/11/20 02/13/25 History mecobalamin (vitamin B12) 1,000 1,000 mcg PO DAILY 12/09/20 02/13/25 History mcg chewable tablet (B12 Active) riboflavin (vitamin B2) 100 mg 200 mg PO BID 07/08/22 02/13/25 History tablet albuterol sulfate 90 mcg/actuation 2 puff inhalation Q6H PRN #6.7 03/01/23 02/13/25 Rx aerosol inhaler grams valsartan 160 1 tab PO DAILY 10/22/24 02/13/25 History mg-hydrochlorothiazide 12.5 mg tablet insulin glargine 100 unit/mL 60 unit subcut DAILY 11/06/24 02/13/25 History subcutaneous solution (Lantus U-100 Insulin) metformin 1,000 mg tablet 750 mg PO BID 11/06/24 02/13/25 History aripiprazole 15 mg tablet See Rx Instructions PO DAILY 12/29/24 02/13/25 History methylphenidate HCl 30 mg biphasic 15 mg PO QAM 02/13/25 02/13/25 History 30-70 capsule,extended release Exam Narrative Exam Narrative: Well-appearing gentleman laying in bed in no acute distress, ANO x 4, heart regular rhythm, lungs clear to auscultation bilaterally, abdomen soft, nontender, nondistended Results Labs 02/13/25 17:07 02/13/25 17:07 Labs: Laboratory Results - last 24 hr 02/13/25 02/13/25 17:07 18:03 WBC 8.37 RBC 4.79 Hgb 13.7 Hct 39.6 L MCV 83 MCH 28.6 MCHC 34.6 RDW 12.5 Plt Count 165 MPV 9.5 Immature Gran % 0.4 Neutrophils % 62.8 Lymphocytes % 28.3 Monocytes % 6.3 Eosinophils % 1.6 Basophils % 0.6 Nucleated RBC % 0.0 Absolute Neutrophils 5.26 Absolute Lymphocytes 2.37 Absolute Monocytes 0.53 Absolute Eosinophils 0.13 Absolute Basophils 0.05 Sodium 139 Potassium 4.0 Chloride 100 Carbon Dioxide 31.7 Anion Gap 7.3 BUN 19 H Creatinine 1.6 H Est GFR (CKD-EPI 2020) 52.49 Glucose 174 H Calcium 9.6 Magnesium 1.9 Total Bilirubin 0.5 AST 20 ALT 28 Alkaline Phosphatase 102 Troponin I 5 5 Total Protein 7.5 Albumin 4.4 Last Vital Signs Temp 98.4 F 02/13/25 16:57 Pulse 75 02/13/25 18:50 Resp 12 02/13/25 18:50 BP 157/92 H 09/24/25 17:15 Pulse Ox 97 02/13/25 18:50 Time Spent Time spent with Patient: >75 minutes Time was spent: preparing to see the patient(eg.review tests), obtaining and/or reviewing separately otained hiistory, ordering medications,tests, procedures, referring, communicating with other health child care coordinator, indepentently interpreting results, counseling the patient and care coordination
--- NOTE | 2025-02-13 21:13 | W.PCEDHO ---
Registration Status: ADM DANITA Primary Language: Preferred Language: Azerbaijani ED Information & Data Chief Complaint Chest Pain 02/13/25 17:14 Triage Note dizzy since yesterday, worse 02/13/25 16:57 today, intermitted chest pain today. ASA per EMS now not having any CP, pt still feels very dizzy. hx of CP/ dizziness had work ups that have all been negative including a stress test. EKG in triage NSR. Medical / Surgical History (Last Reviewed 11/06/24 @ 13:38 by Sugey Duque DPM) Dyslipidemia Hypogonadism in male Microalbuminuria Taste sense altered (Last Reviewed 11/06/24 @ 13:38 by Sugey Duque DPM) History of colonoscopy (~11/2022) Most Recent Vital Signs Temperature 36.9 C 02/13/25 16:57 Pulse 68 02/13/25 20:31 Pulse 68 02/13/25 20:31 Respiratory Rate 13 02/13/25 20:31 Respiratory Effort Normal 02/13/25 18:57 Respiratory Depth Normal 02/13/25 18:57 Respiratory Pattern Normal 02/13/25 18:57 Blood Pressure 158/93 H 02/13/25 20:31 Blood Pressure Mean 115 02/13/25 20:31 Pulse Oximetry 97 02/13/25 20:31 Pain Level 0 02/13/25 16:57 Allergies No Known Allergies Allergy (Verified 02/13/25 17:03) IV IV Catheter Type [Right Saline Lock Antecubital] IV Catheter Gauge [Right 18 Antecubital] Diet Orders Category Date Time Status Diabetes Consistent CHO/Heart Healthy [DIET] Nutrition 02/14/25 Breakfast Ordered Diagnostics 02/13/25 02/13/25 Range/Units 18:03 17:07 WBC 8.37 (4.4-10.8) 10^3/uL RBC 4.79 (4.36-5.78) 10^6/uL Hgb 13.7 (13.5-17.5) g/dL Hct 39.6 L (40.0-50.0) % MCV 83 (80-95) fL MCH 28.6 (27.0-33.0) pg MCHC 34.6 (32.0-36.0) % RDW 12.5 (11.8-14.1) % Plt Count 165 (130-400) 10^3/uL MPV 9.5 (8.0-11.0) fL Immature Gran % 0.4 % Neutrophils % 62.8 % Lymphocytes % 28.3 % Monocytes % 6.3 % Eosinophils % 1.6 % Basophils % 0.6 % Nucleated RBC % 0.0 (0.0-0.3) % Absolute Neutrophils 5.26 (1.2-6.7) 10^3/uL Absolute Lymphocytes 2.37 (1.2-3.4) 10^3/uL Absolute Monocytes 0.53 (0.1-0.8) 10^3/uL Absolute Eosinophils 0.13 (0.0-0.7) 10^3/uL Absolute Basophils 0.05 (0.0-0.2) 10^3/uL Sodium 139 (136-145) mmol/L Potassium 4.0 (3.5-5.1) mmol/L Chloride 100 (98-107) mmol/L Carbon Dioxide 31.7 (21.0-32.0) mmol/L Anion Gap 7.3 (3-11) mmol/L BUN 19 H (7-18) mg/dL Creatinine 1.6 H (0.70-1.30) mg/dL Est GFR (CKD-EPI 2020) 52.49 (mL/min/1.73m2) Glucose 174 H (74-106) mg/dL Calcium 9.6 (8.5-10.1) mg/dL Magnesium 1.9 (1.8-2.4) mg/dL Total Bilirubin 0.5 (0.2-1.0) mg/dL AST 20 (15-37) U/L ALT 28 (16-63) U/L Alkaline Phosphatase 102 (46-116) U/L Troponin I 5 5 (<or=76) ng/L Total Protein 7.5 (6.4-8.2) g/dL Albumin 4.4 (3.4-5.0) g/dL Intake and Output - 24 Hour Total 02/13/25 16:41 thru 02/13/25 16:57 Weight 108.862 kg Falls Risk Assessment History of Falls No History 02/13/25 18:57 Contributing Factors No Factors 02/13/25 18:57 Ambulatory Aids Independent 02/13/25 18:57 Tubes/Lines None 02/13/25 18:57 Gait Evaluation No gait disturbance 09/24/25 18:57 Cognition No cognitive impairment 02/13/25 18:57 Fall Total Score 0 02/13/25 18:57 Level of Risk Standard/Low Risk 02/13/25 18:57 Problems (Last Reviewed 11/06/24 @ 13:38 by Sugey Duque DPM) Chest pressure (Acute) Diabetes mellitus due to underlying condition, uncontrolled, with hyperglycemia, with long-term current use of insulin (Acute) CKD (chronic kidney disease) (Chronic) Hypothyroidism (Chronic) Hypertension (Chronic) v v v v v v v v v Sending and/or Receiving Nurses: Please use comment section below to note any information pertinent to the patient hand-off not included above. Information / Comments: Report received from: Kimberley Huston at 205
[2025-02-14] MEDS: lamoTRIgine 100 MG TAB PO ×2 (00:40→08:52)
[2025-02-14] MEDS: lamoTRIgine 25 MG TAB 50 MG PO ×2 (00:40→08:49)
[2025-02-14] MEDS: busPIRone 5 MG TAB 30 MG PO ×2 (00:40→08:51)
[2025-02-14] MEDS: ARIPiprazole 5 MG TAB 15 MG PO (00:40)
[2025-02-14 02:22] VITALS: BP 118/64; PULSE 74; RESP 18; TEMP 36.4; O2SAT 98
[2025-02-14 06:38] LABS: HCT 41.6 % (40.0-50.0); HGB 14.4 g/dL (13.5-17.5); MCH 28.4 pg (27.0-33.0); MCHC 34.6 % (32.0-36.0); MCV 82 fL (80-95); MPV 9.1 fL (8.0-11.0); Platelet Count 190 10^3/uL (130-400); RBC 5.07 10^6/uL (4.36-5.78); RDW 12.5 % (11.8-14.1); RDW-SD 36.7 fL; WBC 7.57 10^3/uL (4.4-10.8)
[2025-02-14 07:04] LABS: Anion Gap 8.5 mmol/L (3-11); BUN 16 mg/dL (7-18); CO2 30.5 mmol/L (21.0-32.0); Calcium 9.5 mg/dL (8.5-10.1); Chloride 103 mmol/L (98-107); Estimated GFR 56.72 (mL/min/1.73m2); Glucose 147 mg/dL (74-106); Magnesium 2.0 mg/dL (1.8-2.4); Potassium 4.1 mmol/L (3.5-5.1); Sodium 142 mmol/L (136-145)
[2025-02-14 07:31] VITALS: BP 131/85; PULSE 71; RESP 16; TEMP 36.6; O2SAT 96
--- NOTE | 2025-02-14 08:00 | DI.NM_ITS ---
APPROVED REPORT Exam: Pharmacologic Patient Location: Out-Patient Room/Bed: Stress Nurse: Agatha Burns RN Ordering Provider:POWER MOSES, Contact Number: BMI: 34.43 Baseline Rhythm: Sinus Rhythm Indications: Chest pain, normal EKG and negative trops Medical History Medical History: HTN, DM, CKD, hypothyroid, asthma, hx concussion/migraine, PARTH, bipolar, hypopituitarism, dyslipidemia Cardiac Medications: Valsartan/hydrochlorathiazide Allergies: NKA Cardiac Risk Factors: Family hx, HTN, HLD, diabetes, asthma Previous Cardiac Procedures: None Pretest Chest Pain Characteristics: None Exercise History: Sedentary Physical Disabilities: No shoes Lung Sounds: Clear to auscultation, diminished throughout Heart Sounds: Regular Stress Test Details Test: Pharmacologic stress testing performed using 0.4 mg of regadenoson per 5 mL given IV over 10 seconds. Reason for pharmacologic stress test: physical limitation. Nuclear Acquisition: Rest Tc-99m/Stress Tc-99m 1 day Rest Isotope: Tc-99m Sestamibi. Dose: 9.5 Date: 02/14/2025 Injection Time: 1125 Stress Isotope: Tc-99m Sestamibi. Dose: 32.0 Date: 02/14/2025 Injection Time: 1245 HR Resting HR Supine: 77 bpm Max Heart Rate (APMHR): 171 bpm Target HR (85% APMHR): 145 bpm Max HR Achieved: 94 bpm % of APMHR: 55 Recovery HR: 86 bpm BP Resting BP Supine: 122/68 mmHg Max BP: 122/68 mmHg Recovery BP: 114/64 mmHg BP response to stress: Abnormal hypotensive response to stress. ECG Resting ECG: Sinus Rhythm, nonspecific ST-T abnormalities Stress ECG: Sinus Rhythm, nonspecific ST-T abnormalities ST Change: Nondiagnostic low heart rate Recovery ECG: Sinus Rhythm, nonspecific ST-T abnormalities Recovery ST Change: Nondiagnostic low heart rate Clinical Stress Symptoms: 4-7/10 chest pain, mod SOB, dizziness Rate Pressure Product: [id number] Stress ECG Conclusion 1. Resting electrocardiogram showed nondiagnostic ST-T abnormalities 2. Patient underwent testing using pharmacologic stress with regadenoson 3. Peak heart rate achieved was 55% of maximal predicted heart rate for age 4. The electrocardiographic portion of the test was nondiagnostic 5. There were no significant dysrhythmias 6. See MPI report Stress Test Summary STAGE HR BP SpO2 Symptoms NOTES Supine 77 122/65 92% 1 min post Lexiscan injection 92 118/74 94% 3 min post Lexiscan injection 67 84/52 96% Mod SOB, 6-7/10 chest pressure, headache, nausea, dizziness Patient noted to be very pale at this time. Patient positioned supine with HOB flat. 6 min post Lexiscan injection 62 80/52 Mod SOB, 6-7/10 chest pressure, dizziness 9 min post Lexiscan injection 66 92/54 95% Mod SOB, 6-7/10 chest pressure, dizziness Dr. Mercer in to assess patient at this time. Patient color improving. Statse symptoms are starting to resolve. 12 min post Lexiscan injection 71 82/52 15 min post Lexiscan injection 72 88/58 18 min 47 100/62 95% 4-5/10 chest pressure, SOB resolving, dizziness resolving Patient ok to proceed to imaging per Dr. Mercer. Patient able to stand pivot to wheelchair. Chata scan protocol performed due to patient not having shoes. Patient noted to have mod SOB, 6-7/10 chest pain, headache, nausea and dizziness s/p chata injection. Patient also noted to be very pale and diaphoretic. BP noted to be low (80/50's) see above vital signs for more info. Dr. Mercer in to assess patient. Patients symptoms resolved and patient ok to proceed to imaging per Dr. Mercer. Hypotension also noted to be resolved (see above). Patients color noted to be improved and he was able to stand and pivot to wheelchair and stand pivot to imaging table. Patient reported I feel a lot better. Report called to patients nurse prior to NM tech transporting patient to med surg floor. MPI Conclusion Myocardial perfusion is normal. There is no ischemia or evidence of prior infarction Ejection fraction is 59% with normal wall motion
[2025-02-14] MEDS: metFORMIN 500 MG TAB PO (08:49)
[2025-02-14] MEDS: hydroCHLOROthiazide 12.5 MG TAB PO (08:49)
[2025-02-14] MEDS: Methylphenidate 10 MG TAB 15 MG PO (08:49)
[2025-02-14] MEDS: Levothyroxine 125 MCG TAB PO (08:50)
[2025-02-14] MEDS: Valsartan 40 MG TAB 160 MG PO (08:51)
[2025-02-14] MEDS: Insulin Glargine 300 UNITS/3 ML PEN 54 UNITS SC (08:52)
--- NOTE | 2025-02-14 10:21 | PDOC.CMIN ---
Date of service: 02/14/25 Time of Service: 10:21 Care Management Initial Assmt Initial Assessment Reason for Hospitalization: Chest Pain Functional Status/Living Situation Patient Presentation: Edmundo was awake watching TV when CM met with him. He was polite and easily to engaged in conversation. Per pt, he lives with his brother Govind in [place]. He drives and independent at baseline. He works at [employer] and shares that he receives community support/services through [employer]. Edmundo is back from his [facility], he denies concerns tat this time but is ready to eat. CM advised nursing, food try is being sent up. Town of Residence: [place] Resides with: Other (Brother Govind) Significant Other/Family: Local Natural Supports: Supportive family Employment Status: Employed ([employer]) Instrumental Activities of Daily Living (ADLs): Independent Medications Medication Management: No Issues/Barriers identified Physical Functioning/Mobility Assistive Device: None Advance Directives Advance Directives: Do you have an Advance Directive: N 06/10/21, 16:16 AD On File at [facility]: N 06/10/21, 16:16 Date Asked 02/13/25 02/13/25, 17:02 AD Date Reviewed COLST On File at [facility] COLST Date Scanned Code Status Resuscitation Status Full Code Insurance Coverage/Financial Issues Insurance: Medicare Part A & B - [id number] Care Team Visit Care Team Role Provider Type Cb Rain Primary Care Provider NON-[facility] STAFF PHYSICIAN Derik Rust MD Emergency Provider [facility] STAFF PHYSICIAN Sukhi Ceja MD Admit Provider [facility] STAFF PHYSICIAN Attending Provider Discharge Potential Discharge Needs: PCP F/U Appt Anticipated Barriers to Discharge: None Identified Patient/Family Education Needs: Review discharge instructions, discuss Ask Me Three Transportation: Private vehicle Plan: Anticipate, Edmundo will discharge home via private vehicle with family once medically ready. He will follow up with community providers and continue per his discharge paln of care. He would appreciate a return to work letter. CM will follow. No new services are anticipated at this time. Social Determinants of Health Screening Social Determinants of health last assessed in clinic: 02/14/25 Will the Patient Participate in the Screening?: Yes Do you worry about having a steady place to live?: no Problems where you live: no known problems In the past 12 months, have you had to go without electric, gas, oil or water in your home?: no 1. Within the past 12 months, we worried whether our food would run out before we got money to buy more.: Never true 2. Within the past 12 months, the food we bought just didn't last and we didn't have money to get more.: Never true Has lack of transportation kept you from medical appointments or from doing things needed for daily living?: no Has anyone in your life made you feel unsafe or unsupported?: no How hard is it for you to pay for the very basics like food, housing, medical care, and heating? Would you say it is:: Not hard at all Do you want help finding or keeping work or a job?: I do not need or want help If for any reason you need help with day-to-day activities such as bathing, preparing meals, shopping, managing finances, etc., do you get the help you need?: I don?t need any help How often do you feel lonely or isolated from those around you?: Rarely Do you speak a language other than [place] Citizen at home?: No Does the patient want assistance with any of the above?: No Health Related Social Needs Health related social needs: feeling lonely/isolated (Z60.8) PFSH All Active Problems (Updated 02/13/25 @ 19:28 by Derik Rust MD) Chest pressure (Acute) Acute right hip pain (Acute) Dystrophia unguium (Acute) Onychomycosis (Acute) Diabetes mellitus due to underlying condition, uncontrolled, with hyperglycemia, with long-term current use of insulin (Acute) CKD (chronic kidney disease) (Chronic) Heel callus (Acute) Diverticula of colon (Acute) right sided Screening for malignant neoplasm of colon performed (Acute) Lightheadedness (Acute) Post concussive syndrome (Chronic) Migraine headache without aura (Chronic) Metabolic syndrome (Chronic) Type 2 diabetes with nephropathy (Chronic) Hypothyroidism (Chronic) Obstructive sleep apnea (Chronic) Hypertension (Chronic) Vertiginous migraine (Acute) Hypomagnesemia (Chronic) Mild renal insufficiency (Chronic) Postural lightheadedness (Chronic) Anemia (Chronic) Bipolar 1 disorder (Chronic) Hypopituitarism (Chronic) Diabetes (Chronic) Medical History Dyslipidemia Hypogonadism in male Microalbuminuria Taste sense altered Surgical History History of colonoscopy (~11/2022) Social History Smoking/Tobacco Use Status: Never Smoking risk assessment performed?: Yes Alcohol Intake: never Drug use: Never Substance use type: does not use Housing: house Do you feel safe at home: Yes Do you feel safe in your relationship?: Yes
[2025-02-14 11:00] VITALS: BP 126/81; PULSE 83; RESP 16; TEMP 36.6; O2SAT 97
[2025-02-14] MEDS: Regadenoson 0.4 MG/5 ML SYR IVP (13:40)
[2025-02-14 15:11] VITALS: BP 126/82; PULSE 82; RESP 16; TEMP 36.8; O2SAT 96
--- NOTE | 2025-02-14 17:22 | DSE_ITS ---
Date of service: 02/14/25 Time of Service: 17:22 DS: Diagnosis Discharge Diagnosis (1) Chest pressure: Status: Acute (2) Diabetes mellitus due to underlying condition, uncontrolled, with hyperglycemia, with long-term current use of insulin: Status: Acute (3) CKD (chronic kidney disease): Status: Chronic (4) Hypertension: Status: Chronic (5) Hypothyroidism: Status: Chronic Discharge Plan Disposition Patient Disposition: Home Condition: Improving Discharge Details Reason For Visit: Chest pain Admit Date/Time: 02/13/25 19:34 Admit Provider: Sukhi Ceja Attending Provider: Sukhi Ceja Primary Care Provider: Cb Rain Hospital Course Hospital Course: This 49-year-old male with a past medical history of asthma, IDDM, hypertension, hypothyroidism presented to the emergency department on 02/13/25 for evaluation chest pain s/p heavy lifting on 02/12/25 and dizziness that got worse as of the morning of 02/13/2025 . In the emergency department patient was noted to have a normal physical exam, EKG without any signs of ACS, and 3 negative troponins. However, given that the patient had a heart score of 4 emergency room provider paged hospitalist for admission for patient requiring nuclear stress test. MPI completed and negative for ischemia. No further chest pressure/ pain or dizziness reported. The patient was hemodynamically stable and will be discharged home with recommendation for PC follow-up within 7 days of discharge and echocardiogram outpatient as per PCP. Discussed with Dr. Henao Recommendations for Follow Up Recommended tests to be ordered by follow up provider: Echocardiogram Home Meds and New Rx's Prescriptions: Continued valsartan-hydrochlorothiazide 160-12.5 mg tablet 1 tab PO DAILY insulin glargine [Lantus U-100 Insulin] 100 unit/mL solution 54 unit subcut DAILY metformin 1,000 mg tablet See Rx Instructions PO BID Patient Comments: 500 mg in the AM and 1000mg in PM Rx Instructions: orally twice a day; cholecalciferol (vitamin D3) 1,000 UNITS tablet 1,000 units PO DAILY albuterol sulfate 90 mcg/actuation HFA aerosol inhaler 2 puff inhalation Q6H PRNQty: 6.7 0RF Patient Comments: Rescue inhaler aripiprazole 20 mg tablet 20 mg PO HS Patient Comments: TAKE ONE TABLET BY MOUTH EVERY NIGHT buspirone 30 mg tablet 30 mg PO BID Patient Comments: TAKE ONE TABLET BY MOUTH TWICE A DAY lamotrigine 150 mg tablet 150 mg PO BID Patient Comments: TAKE ONE TABLET BY MOUTH TWICE A DAY levothyroxine 125 mcg tablet 125 mcg PO DAILY Patient Comments: TAKE ONE TABLET BY MOUTH EVERY MORNING methylphenidate HCl 10 mg tablet See Rx Instructions PO DAILY Patient Comments: TAKE 15 mg BY MOUTH EVERY MORNING THEN 10 mg IN THE AFTERNOON TOTAL DAILY DOSE 25 MG. Rx Instructions: orally daily; atorvastatin 40 mg tablet 40 mg PO DAILY Patient Comments: TAKE ONE TABLET BY MOUTH EVERY EVENING Held buspirone 15 mg tablet 15 mg PO BID Hold Instructions: Resume on 03/02/25. Discuss with PCP Rx Instructions: 30 mg am and 15 mg hs mecobalamin (vitamin B12) [B12 Active] 1,000 mcg tablet,chewable 1,000 mcg PO DAILY Hold Instructions: Resume on 03/02/25. Discuss w PCP riboflavin (vitamin B2) 100 mg tablet 200 mg PO BID Hold Instructions: Resume on 03/02/25. discussed w PCP Discontinued aripiprazole 15 mg tablet See Rx Instructions PO DAILY Rx Instructions: 15 mg and 2 mg orally daily; methylphenidate HCl 30 mg capsule, ER biphasic 30-70 15 mg PO QAM lamotrigine [Lamictal] 100 MG tablet 100 mg PO BID levothyroxine [Synthroid] 112 MCG tablet 125 mcg PO DAILY Discharge Instructions Stand Alone Forms: Nursing Discharge Form Referrals: Cb Rain [Primary Care Provider, Medicine] Referral Note: F/u with PCP within 7 days of discharge Activity:: Activity as Tolerated Equipment/Supplies:: No Equipment Needed Diet:: hearth healthy diabetic Discharge Orders Discharge Orders: Discharge Order (Routine); Ordered 02/14/25 Ordered By: Jessica Phillips DS: Summary Time Spent with Patient providing and/or coordinating discharge services: Greater than 30 minutes Status at Discharge Functional status at discharge: independent ambulation Overall status at discharge: patient is progressing back to baseline Mental Status: mental status grossly normal Speech and Movement: speech and movement normal Mood: congruent mood Affect: normal affect Quality:SDOH Health Related Social Needs: Health related social needs lonely/isolated Exam Narrative Exam Narrative: Patient wtih no acute distress, neurologically intact, clear lungs, SR on telemetry, S1, S2 no murmur, abdomen is non-distended , soft and non-tender, no CVA tenderness Psych Mental Status: mental status grossly normal Speech and Movement: speech and movement normal Mood: congruent mood Affect: normal affect DS: Data Vitals/I&O Vitals and I&O: Vital Signs Temperature 36.8 C 02/14/25 15:11 Temperature Source Temporal Artery Scan 02/14/25 15:11 Pulse 82 02/14/25 15:11 Pulse Rhythm Regular 02/13/25 21:00 Pulse 68 02/13/25 20:31 Respiratory Rate 16 02/14/25 15:11 Respiratory Effort Normal 02/13/25 21:00 Respiratory Depth Normal 02/13/25 21:00 Respiratory Pattern Normal 02/13/25 21:00 Blood Pressure 126/82 02/14/25 15:11 Blood Pressure Mean 96 02/14/25 15:11 Pulse Oximetry 96 02/14/25 15:11 Oxygen Delivery Method Room Air 02/14/25 15:11 Oxygen Flow Rate 0 02/14/25 15:11 Pain Level 0 02/14/25 06:07 Intake & Output 02/13/25 02/14/25 02/14/25 23:59 11:59 23:59 Intake Total 1000 / 1000 1000 / 1000 Balance 1000 / 1000 1000 / 1000 Weight 108.862 kg Intake: Oral 1000 / 1000 1000 / 1000 Other: Urine Color Yellow Yellow Pale Urine Appearance Clear Clear Clear Urine Odor None Normal None Data Completed and Pending Labs on day of discharge: Labs from last 24 hours 02/14/25 02/13/25 02/13/25 06:28 18:03 17:07 WBC 7.57 RBC 5.07 Hgb 14.4 Hct 41.6 MCV 82 MCH 28.4 MCHC 34.6 RDW 12.5 Plt Count 190 MPV 9.1 Sodium 142 139 Potassium 4.1 4.0 Chloride 103 100 Carbon Dioxide 30.5 31.7 Anion Gap 8.5 7.3 BUN 16 19 H Creatinine 1.5 H 1.6 H Est GFR (CKD-EPI 2020) 56.72 52.49 Glucose 147 H 174 H Calcium 9.5 9.6 Magnesium 2.0 1.9 Total Bilirubin 0.5 AST 20 ALT 28 Alkaline Phosphatase 102 Troponin I 5 5 Total Protein 7.5 Albumin 4.4 PFSH All Active Problems (Updated 02/13/25 @ 19:28 by Derik Rust MD) Chest pressure (Acute) Acute right hip pain (Acute) Dystrophia unguium (Acute) Onychomycosis (Acute) Diabetes mellitus due to underlying condition, uncontrolled, with hyperglycemia, with long-term current use of insulin (Acute) CKD (chronic kidney disease) (Chronic) Heel callus (Acute) Diverticula of colon (Acute) right sided Screening for malignant neoplasm of colon performed (Acute) Lightheadedness (Acute) Post concussive syndrome (Chronic) Migraine headache without aura (Chronic) Metabolic syndrome (Chronic) Type 2 diabetes with nephropathy (Chronic) Hypothyroidism (Chronic) Obstructive sleep apnea (Chronic) Hypertension (Chronic) Vertiginous migraine (Acute) Hypomagnesemia (Chronic) Mild renal insufficiency (Chronic) Postural lightheadedness (Chronic) Anemia (Chronic) Bipolar 1 disorder (Chronic) Hypopituitarism (Chronic) Diabetes (Chronic) Medical History Dyslipidemia Hypogonadism in male Microalbuminuria Taste sense altered Surgical History History of colonoscopy (~11/2022) Social History Smoking/Tobacco Use Status: Never Smoking risk assessment performed?: Yes Alcohol Intake: never Drug use: Never Substance use type: does not use Housing: house Do you feel safe at home: Yes Do you feel safe in your relationship?: Yes Time Spent with Patient Time Spent with Patient: >85 minutes Time was spent: preparing to see the patient(eg.review tests), obtaining and/or reviewing separately otained hiistory, ordering medications,tests, procedures, referring, communicating with other health healthcare economics consultant, indepentently interpreting results, counseling the patient, care coordination and other
[2025-02-14] MEDS: metFORMIN 500 MG TAB 1000 MG PO (17:57)
== END 2025-02-14 18:25 | disposition home or self-care (01) ==
LOC: ER 19:37 → MS 21:04
PROVIDERS: Admitting Provider Family Medicine; Emergency Provider Emergency Medicine; PCP Student in an Organized Health Care Education/Training Program; Visit Provider Family Medicine
DX: R07.89 Other chest pain (principal); N18.9 Chronic kidney disease, unspecified; I12.9 Hypertensive chronic kidney disease with stage 1 through stage 4 chronic kidney disease, or unspecified chronic kidney disease; E03.9 Hypothyroidism, unspecified; Z79.899 Other long term (current) drug therapy; J45.909 Unspecified asthma, uncomplicated; R42 Dizziness and giddiness; K57.30 Diverticulosis of large intestine without perforation or abscess without bleeding; E88.810 Metabolic syndrome; E08.65 Diabetes mellitus due to underlying condition with hyperglycemia; Z79.4 Long term (current) use of insulin; E08.22 Diabetes mellitus due to underlying condition with diabetic chronic kidney disease; D64.9 Anemia, unspecified; F31.9 Bipolar disorder, unspecified; G47.33 Obstructive sleep apnea (adult) (pediatric); E83.42 Hypomagnesemia; G43.009 Migraine without aura, not intractable, without status migrainosus
CPT/HCPCS: 00123; 36415; 78452; 80048; 80053; 85027; 93005; 93016; 93018; 99285; 71046; 83735; 84484; 85025; 93010; 93017; 99223; 99239; G0378; J1815; J2785

== ENCOUNTER 2025-02-20 17:53 | Outpatient (REF) | payer MEDICARE, SELFPAY ==
[2025-02-20 18:17] LABS: Folate 10.3 ng/mL (8.6-20.0); Vitamin B12 359 pg/mL (193-986)
== END 2025-02-20 17:54 | disposition home or self-care (01) ==
LOC: LBN 17:53
PROVIDERS: PCP Student in an Organized Health Care Education/Training Program; Visit Provider Family Medicine
DX: R20.2 Paresthesia of skin (principal); R42 Dizziness and giddiness
CPT/HCPCS: 82607; 82746

== ENCOUNTER 2025-03-05 01:57 | Outpatient (CLI) | payer MEDICARE, SELFPAY ==
--- NOTE | 2025-03-05 | DI.US_ITS ---
APPROVED REPORT EXAM: Comprehensive 2D, Doppler, and color-flow Echocardiogram Patient Location: Out-Patient Sale Professional Digital Marketing: Aliya Marinelli RDCS (AE) Indications: Dyspnea on exertion Other Information Study Quality: Adequate Conclusion Normal left ventricular wall thickness and chamber size. Ejection fraction was 60%. Wall motion is normal Normal right ventricular size and function Both atria are normal in size There is no structural or hemodynamically significant valvular disease Wall motion Left Ventricle The left ventricle is normal size. The left ventricular systolic function is normal. The left ventricular ejection fraction is within the normal range. There is normal left ventricular wall thickness. There is normal LV segmental wall motion. There is no ventricular septal defect visualized. LVEF is 60%. Right Ventricle The right ventricle is normal size. The right ventricular systolic function is normal. Atria The left atrium size is normal. The right atrium size is normal. The interatrial septum is intact with no evidence for an atrial septal defect. Aortic Valve The aortic valve is normal in structure. Aortic valve is trileaflet. There is no aortic valvular stenosis. No aortic regurgitation is present. Mitral Valve The mitral valve is normal in structure. No evidence of mitral valve stenosis. Trace mitral regurgitation. Tricuspid Valve The tricuspid valve is normal in structure. There is no tricuspid valve stenosis. Trace tricuspid regurgitation. Unable to assess PA pressure. Pulmonic Valve The pulmonary valve is normal in structure. There is no pulmonic valvular stenosis. There is no pulmonic valvular regurgitation. Great Vessels The aortic root is normal in size. The ascending aorta is normal in size. Aortic arch is normal in caliber. The IVC collapses <50% with inspiration. Pericardium There is no pericardial effusion. 2D Dimensions IVSD d PLAX 0.90 cm M: 0.6-1.2 Ao Root d 3.36 cm M: 3.1 - 3.7 LVPW d PLAX 0.90 cm M: 0.6 - 1.2 Ao Asc Diam d 3.35 cm M: 2.6 - 3.4 LVID d PLAX 4.34 cm M: 4.2 - 5.8 LVDs 3.00 cm M: 2.5 - 4.0 LV EF Teichholz 60.3 % FS 31.93 % LV EDV (Teich) 85.0 mL LV ESV (Teich) 33.8 mL M-Mode TAPSE 2.59 cm (M/F) >1.7 Auto EF LV EDV A4C 122.3 mL LV EDV A2C 128.8 mL LV EDV BP 125.6 mL LV ESV A4C 51.1 mL LV ESV A2C 54.3 mL LV ESV BP 52.7 mL LVEF(%) A4C 58.2 % LVEF(%) A2C 57.8 % LVEF(%) BP 58.0 % LV SV A4C 71.1 ml LV SV A2C 74.5 ml LV SV BP 72.9 ml LV CO A4C 4.8 L/min LV CO A2C 5.1 L/min LV CO BP 5.0 L/min HR A4C 67.77 BPM HR A2C 68.19 BPM LV EDV Index (BP) LA Volume LA Length A4C 5.6 cm LA Length A2C 5.5 cm LA Area A4C s 19.30 cm2 LA Area A2C s 21.49 cm2 LA Vol A4C A-L 56.83 mL LA Vol A2C A-L 71.07 mL LA Vol Biplane A-L 63.8 mL LA Vol/BSA A4C A-L LA Vol/BSA A2C A-L LA Vol/BSA BP A-L 28.4 mL/m2 LA Vol A4C MOD 52.1 mL LA Vol A2C MOD 66.1 mL LA Vol BP MOD 58.7 mL RA Volume RA Area A4C 13.4 cm2 RA ESV A4C (A-L) 32.3mL RA Vol/BSA A4C A-L RA Length A4C 4.7 cm RA ESV A4C (MOD) 30.5mL LV Diastology MV E' medial 0.118 (>0.07 m/s) MV E Vmax 0.89 (0.4-1.3 m/s) MV E/E' MED 7.56 (<14) MV A Vmax 0.80 (0.4-1.3 m/s) MV E' lateral 0.159 (>0.1 m/s) E/A Ratio 1.1 MV E/E' LAT 5.60 (<14) MV E' Average 0.138 m/s MV E/E'(average) 6.43 Aortic Valve AoV Vmax 1.22 m/s LVOT Vmax 1.01 m/s AoV Peak Grad 5.9 mmHg LVOT Peak Grad 4.1 mmHg AoV Area (Vmax) 2.96 cm2 LVOT VTI 0.226 m AoV VTI 0.294 m LVOT Mean Grad 2.4 mmHg AoV Mean Nabeel. 0.89 m/s LVOT SV 80.19 mL AoV Mean Grad 3.6 mmHg LVOT Diam s 2.10 cm AoV Area (VTI) 2.72 cm2 AV Regurg Peak Gr. 5.91 mmHg Velocity Ratio 0.83 Mitral Valve MV DT 145 (160-240 msec) MV Vmax TIPS 0.79 m/s MV Mean Grad 0.9 (<2mmHg) MV VTI 0.227 m Pulmonary Valve PV Vmax 0.84 (0.5-1.5 m/s) RVOT Vmax 0.77 m/s PV Peak Grad 2.8 mmHg RVOT Peak Gr. 2.4 mmHg PV Mean Nabeel 0.57 m/s RVOT VTI 0.174 m PV Mean Grad 1.5 mmHg RVOT Mean Gr. 1.3 mmHg Tricuspid Valve TV S' 0.16 m/s
== END 2025-03-05 02:17 ==
PROVIDERS: PCP Student in an Organized Health Care Education/Training Program; Visit Provider Internal Medicine Cardiovascular Disease
DX: R06.09 Other forms of dyspnea (principal)
CPT/HCPCS: 93306

== ENCOUNTER 2025-03-07 09:34 | Outpatient (REF) | payer MEDICARE, SELFPAY ==
[2025-03-07 15:42] LABS: COMMENT (LAB VIEW ONLY) 90.72 mg/dL; Microalb ug/mg Crea 8.2 ug/mg Cr
== END 2025-03-07 09:35 | disposition home or self-care (01) ==
LOC: NCHCN 09:34
PROVIDERS: PCP Student in an Organized Health Care Education/Training Program; Visit Provider Student in an Organized Health Care Education/Training Program
DX: E11.21 Type 2 diabetes mellitus with diabetic nephropathy (principal)
CPT/HCPCS: 82043; 82570